=== PATIENT | female | born 1945 | race Caucasian/White ===

== ENCOUNTER 2017-06-16 05:33 | Inpatient (IN) | payer MEDICARE, MEDICAID, SELFPAY ==
[2017-06-16] VITALS (32 sets, daily range): BP systolic 124–165; BP diastolic 47–106; PULSE 57–81; RESP 16–26; TEMP 35.4–37.1; O2SAT 92–100; BMI 43.7; BMI 40.8; BMI 40.9
--- NOTE | 2017-06-16 05:43 | EKG12_ITS ---
Test Reason : SOB Blood Pressure : / mmHG Vent. Rate : 062 BPM Atrial Rate : 062 BPM P-R Int : 306 ms QRS Dur : 098 ms QT Int : 406 ms P-R-T Axes : 085 053 -42 degrees QTc Int : 412 ms Sinus rhythm with 1st degree A-V block T wave abnormality, consider inferior ischemia Abnormal ECG Confirmed by SOUTH PENDLETON ([id number]), staff editor WILLIAM LUNSFORD ([id number]) on 06/21/2017 2:09:02 PM Referred By: RICHIE Confirmed By:SOUTH PENDLETON
--- NOTE | 2017-06-16 05:43 | RAD_ITS ---
STUDY: X-RAY CHEST REASON FOR EXAM: Female, 71 years old. Shortness of breath TECHNIQUE: Single AP portable view of the chest. COMPARISON: 07/15/2015 FINDINGS: There are superimposed monitor leads. One monitor lead is superimposed over the left thoracic sutures. There are areas of hyperinflation. There is increased interstitial prominence left greater than right. There is no demonstrated pleural abnormality. Sternal cerclage wires and vascular clips are present from a prior sternotomy and coronary artery bypass graft procedure (CABG). Normal mediastinum and sachin. Normal visualized pulmonary arteries. There is atherosclerotic calcification of the aortic arch with tortuosity. The spine and upper abdominal soft tissues are obscured. Normal visualized ribs, clavicles, and shoulders. RAD/Chest 1 View (Portable) IMPRESSION: Free soft interstitial prominence, slightly more left compared to right. Possible inflammatory process rather than asymmetric vascular congestion. Suspect underlying COPD component. Postsurgical changes as above. Electronically Signed: Suze Schuster MD at 6:48 EDT , Service support ,
--- NOTE | 2017-06-16 05:45 | ED.VISSUMM ---
- ER Visit Summary Date of Service: 06/16/17 Chief Complaint: Shortness of breath History of Present Illness: The patient is a 71 F presents for 3 weeks of intermittent shortness of breath. Patient and daughter provide history. Patient has been having 3 weeks of worsening shortness of breath, worse with mild exertion. Patient has associated cough productive of sputum. Chest pain with the cough. No fever, abdominal pain, nausea or vomiting. No urinary symptoms. Patient is on home oxygen at 2 L as needed. EMS gave patient oral glucose for a low blood sugar of [address] her on oxygen after finding her 91% on room air. History of COPD, CHF, DVTs, diabetes, hypertension, coronary artery disease status post myocardial infarction. Patient is on Coumadin. Physical Examination: Vital signs: afebrile, hemodynamically stable, no hypoxia on room air General: well nourished, well developed, in mild distress Skin: warm, dry, no rash, no pallor HEENT: normocephalic and atraumatic; PERRL, EOMI, moist mucous membranes Cardiovascular: regular rate and rhythm without murmurs, no peripheral edema, 2+ pulses all distal extremities Respiratory: Mild increased work of breathing, audible wheezing, wheezing noted in all peña, rales in bilateral bases, left lower field diminished Abdominal: Abdomen is soft, nontender with normoactive bowel sounds, no guarding or rebound, no masses MSK: Moves all extremities, no deformities, normal strength Neuro: Awake and alert, oriented ?4. No facial droop, sensation and motor function intact and symmetric Test Results: Abnormal Lab Results 06/16/17 06/16/17 06/16/17 05:40 07:04 07:04 WBC 6.3 RBC 4.67 Hgb 13.2 Hct 43.7 MCV 93.6 MCH 28.3 MCHC 30.2 L RDW 14.4 RDW Differential 48.5 H Plt Count 101 L MPV 9.8 Immature Gran % (Auto) 0.200 Neut % (Auto) 69.2 Lymph % (Auto) 17.4 L [place] % (Auto) 12.8 H Eos % (Auto) 0.2 Baso % (Auto) 0.2 Absolute Neuts (auto) 4.3 Absolute Lymphs (auto) 1.09 Total Counted Not Reportable PT INR APTT Sodium 137 Potassium 4.4 Chloride 102 Carbon Dioxide 32.0 Anion Gap 3 L BUN 31 H Creatinine 0.76 Estim Creat Clear Calc 47.10 Est GFR (MDRD) Af Amer 96 Est GFR (MDRD) Non-Af 80 BUN/Creatinine Ratio 40.7 H Glucose 76 Lactic Acid Calcium 8.5 Total Bilirubin 0.40 AST 23 ALT 22 Alkaline Phosphatase 123 H Troponin I 1.21 H* Total Protein 7.5 Albumin 2.7 L Globulin 4.8 H Albumin/Globulin Ratio 0.6 L POC Glucose 79 06/16/17 06/16/17 06/16/17 07:04 07:04 07:11 WBC RBC Hgb Hct MCV MCH MCHC RDW RDW Differential Plt Count MPV Immature Gran % (Auto) Neut % (Auto) Lymph % (Auto) [place] % (Auto) Eos % (Auto) Baso % (Auto) Absolute Neuts (auto) Absolute Lymphs (auto) Total Counted PT 31.8 H INR 3.1 APTT 43.9 H Sodium Potassium Chloride Carbon Dioxide Anion Gap BUN Creatinine Estim Creat Clear Calc Est GFR (MDRD) Af Amer Est GFR (MDRD) Non-Af BUN/Creatinine Ratio Glucose Lactic Acid 1.2 Calcium Total Bilirubin AST ALT Alkaline Phosphatase Troponin I Total Protein Albumin Globulin Albumin/Globulin Ratio POC Glucose 85 Emergency Department Course and Treatment: Patient presents with shortness of breath, wheezing and mild crackles in the bases, with concern for COPD versus CHF exacerbation versus pneumonia. She was given a DuoNeb treatment with some improvement in her wheezing. Workup performed that showed positive for influenza A, chest x-ray showing no obvious infiltrates or pulmonary edema, EKG showing ST elevation in 1 and aVL less than 1 mm with T-wave inversions in the inferior leads. EKG repeated after 30 minutes and still had these changes. Patient's EKG was discussed with Dr. Wang, who agreed the changes were concerning for ischemia and requested that patient be loaded on Plavix and placed in the ICU of her troponin was elevated. Troponin came back at 1.2. Patient's INR was 3, thus she was not given any heparin per Dr. Wang's recommendation. Echo was ordered and performed in the emergency department. Patient will be admitted to the ICU for shortness of breath, respiratory distress secondary to influenza and acute coronary syndrome, secondary to respiratory infection versus a primary ACS. Was discussed with Dr. Jesus and admitted to the ICU for further management. Dr. Galeano was notified of patient's ICU admission. Treatment Plan: [] Disposition: [] Impression: Influenza A, acute coronary syndrome, acute dyspnea This note was generated with Memento dictation software. It may contain incorrect words, spelling, and punctuation that were not noted in review of the chart prior to signing ED Disposition - Plan for ED Patient: Chief Complaint: Shortness of Breath Referrals: Carli Carballo MD [Primary Care Provider] -
[2017-06-16 05:46] LABS: Bedside Glucose 79 mg/dL (70-110)
[2017-06-16] MEDS: 0.9% Normal Saline 1,000 ML 150 ML IV (06:05)
[2017-06-16] MEDS: Ipratropium/Albuterol Sulfate 3 ML AMPUL.NEB INHALATION ×3 (06:10→18:36)
--- NOTE | 2017-06-16 06:36 | EKG12_ITS ---
Test Reason : SOB Blood Pressure : / mmHG Vent. Rate : 060 BPM Atrial Rate : 060 BPM P-R Int : 254 ms QRS Dur : 092 ms QT Int : 442 ms P-R-T Axes : 068 051 -37 degrees QTc Int : 442 ms Sinus rhythm with 1st degree A-V block T wave abnormality, consider inferior ischemia Abnormal ECG Confirmed by SOUTH PENDLETON ([id number]), manager editorial WILLIAM LUNSFORD ([id number]) on 06/21/2017 2:09:17 PM Referred By: RICHIE Confirmed By:SOUTH PENDLETON
--- NOTE | 2017-06-16 06:37 | ED.RN ---
lab called with critical lab results. flu positive flu A. Dr. Veloz made aware. No new orders at this time
[2017-06-16 07:12] LABS: Absolute Lymphocyte Count 1.09 X10^3/ul (0.83-4.51); Absolute Neutrophil Count 4.3 X10^3/uL (2.0-7.7); Basophil# 0.01 X10^3/uL; Basophil% 0.2 % (0-1); Eosinophil# 0.01 X10^3/uL; Eosinophils% 0.2 % (0-5); Hematocrit 43.7 % (37-47); Hemoglobin 13.2 g/dl (12.0-15.0); Lymphocyte # 1.09 X10^3/ul (4.0); Lymphocyte % 17.4 % (19-41); Mean Corp Hgb Conc 30.2 g/gl (32-36); Mean Corpuscular Hgb 28.3 pg (27.0-32.0); Mean Corpuscular Volume 93.6 fL (81-99); Mean Platelet Vol. 9.8 fl (6.2-12.0); Monocyte% 12.8 % (0-10); Neutrophil # 4.33 X10^3/uL (2.7-7.7); Neutrophil % 69.2 % (47-70); Platelet Count 101 K/mm3 (150-450); RBC Distribution Width CV 14.4 % (11.6-14.6); RBC Distribution Width SD 48.5 fl (35.1-43.9); Red Blood Count 4.67 M/mm3 (4.2-5.4); White Blood Count 6.3 K/mm3 (4.4-11.0)
[2017-06-16 07:13] LABS: POSITIVE COUNT NO; POSITIVE DIFFERENTIAL NO; POSITIVE MORPHOLOGY NO
[2017-06-16 07:15] LABS: Bedside Glucose 85 mg/dL (70-110)
[2017-06-16] MEDS: MethylPREDNISolone 125 MG/2 ML Vial IV (07:19)
[2017-06-16] MEDS: Albuterol 2.5 MG/3 ML VIAL.NEB. INHALATION ×2 (07:21)
--- NOTE | 2017-06-16 07:30 | ECHOD_ITS ---
Reason For Study: ABN EKG Procedure This was a 2D Doppler, Color Flow transthoracic echocardiogram. The study was technically difficult. Due to body habitus. Contrast injection was performed. Exam performed portable in ED. Left Ventricle Mild concentric left ventricular hypertrophy. The estimated ejection fraction is 55 %. There are regional wall motion abnormalities as specified. Mid-Anterior : Mildly hypokinetic. Right Ventricle Moderately dilated right ventricle. Mild to moderate global right ventricular systolic dysfunction. Atria The left atrium is severely enlarged. The right atrium is mildly enlarged. Normal atrial septum. Mitral Valve Mild diffuse mitral valve thickening. Mild mitral valve stenosis. Mild (1+) mitral valve insufficiency. Tricuspid Valve Normal tricuspid valve. Trivial tricuspid valve insufficiency. Right ventricular systolic pressure estimated to be 22 mmHg. Aortic Valve Trisinus/trileaflet aortic valve. Moderate focal aortic valve thickening. There is no aortic stenosis. Pulmonic Valve Normal pulmonic valve. Trivial pulmonic valve insufficiency. Great Vessels Normal aortic root. Normal arch. Normal inferior vena cava. Inferior vena cava collapse with sniff. Pericardium/Pleural No pericardial effusion. Medication Diluted definity 3.0ml given slow IV push to enhance endocardial definition. MMode/2D Measurements & Calculations LVIDd: 5.6 cm IVSd: 1.4 cm Ao root diam: 3.1 cm LVIDs: 3.5 cm LVPWd: 1.3 cm LA dimension: 3.7 cm FS: 37.5 % LAV(MOD-bp): 75.3 ml LA A4 area: 26.0 cm2 RA A4 area: 20.6 cm2 LAV(MOD-bp) Indexed: 33.6 ml/m2 LAV(MOD-sp2): 63.8 ml LAV(MOD-sp4): 86.8 ml Doppler Measurements & Calculations MV E max asaf: 126.2 cm/sec Lat Peak E' Asaf: 11.3 cm/sec Med Peak E' Asaf: 5.0 cm/sec MV A max asaf: 58.4 cm/sec E/E' lat: 11.2 E/E' med: 25.3 MV E/A: 2.2 MV V2 max: 140.8 cm/sec Ao V2 max: 140.9 cm/sec LV V1 max: 61.8 cm/sec MV max P.9 mmHg Ao max P.9 mmHg LV V1 max P.5 mmHg MV V2 mean: 62.2 cm/sec MV mean P.0 mmHg MV V2 VTI: 37.4 cm PA V2 max: 94.2 cm/sec PI dec slope: 123.1 cm/sec2 TR max asaf: 209.6 cm/sec TR max P.6 mmHg Interpretation Summary Mild concentric left ventricular hypertrophy. The estimated ejection fraction is 55 %. Mid-Anterior : Mildly hypokinetic Moderately dilated right ventricle. Mild to moderate global right ventricular systolic dysfunction. The left atrium is severely enlarged. Mild mitral valve stenosis. Mild (1+) mitral valve insufficiency. Right ventricular systolic pressure estimated to be 22 mmHg. The study was technically difficult. Contrast injection was performed. Ordering Physician: Britta Veloz Referring Physician: Carli Carballo Performed By: Violeta Topete RDCS, RVT
[2017-06-16 07:31] LABS: International Normalized Ratio 3.1; Prothrombin Time (Protime)PT. 31.8 SECONDS (11.7-14.9)
[2017-06-16 07:32] LABS: Partial Thromboplast Time 43.9 Seconds (24.1-36.2)
[2017-06-16] MEDS: Clopidogrel Bisulfate 300 MG Tablet PO (08:00)
[2017-06-16 08:03] LABS: ALB/GLOB Ratio 0.6 RATIO (0.9-2.4); AST(SGOT) 23 U/L (15-37); Alanine Aminotransfer ALT/SGPT 22 U/L (13-56); Albumin, Serum 2.7 g/dL (3.2-5.0); Alkaline Phosphatase 123 U/L (45-117); Anion Gap 3 (5-15); BUN 31 mg/dL (7-18); BUN/Creat Ratio 40.7 RATIO (10-20); Calcium,Total 8.5 mg/dL (8.5-10.1); Chloride 102 mmol/L (98-107); Creatinine, Serum 0.76 mg/dL (0.55-1.02); EST Glomerular Filtration Rate 80 mL/min (>60); Est Glom Filt Rate - Afr Amer 96 mL/min (>60); Globulin 4.8 g/dL (2.2-4.2); Glucose 76 mg/dL (74-106); Lactic Acid 1.2 mmol/L (0.4-2.0); Potassium 4.4 mmol/L (3.5-5.1); Protein, Total 7.5 g/dL (6.4-8.2); Sodium Level 137 mmol/L (136-145)
--- NOTE | 2017-06-16 08:26 | NURSING ---
DR LEONARDO FOR DR QUIROZ
--- NOTE | 2017-06-16 08:43 | NURSING ---
ICU ACS, INFLUENZA A SEMENTI
--- NOTE | 2017-06-16 08:43 | NURSING ---
DR PENDLETON IN WITH PATIENT
--- NOTE | 2017-06-16 08:49 | NURSING ---
ICU 4
--- NOTE | 2017-06-16 08:50 | NURSING ---
DR LEONARDO IN WITH PATIENT
--- NOTE | 2017-06-16 08:58 | NURSING ---
Called Hoda in ED, asked to have Gabbi send up pt from ER
[2017-06-16 09:20] LABS: BNP,B-Type NATRIURETIC PEPTIDE 226.5 pg/mL (0-100)
--- NOTE | 2017-06-16 09:24 | PCM.HP.STD ---
Problem List (1) NSTEMI (non-ST elevated myocardial infarction) Status: Acute (2) Influenza Status: Acute Comment: Influenza A (3) COPD with acute exacerbation Status: Acute (4) COPD (chronic obstructive pulmonary disease) Status: Chronic (5) KARRIE (obstructive sleep apnea) Status: Suspected (6) Nocturnal hypoxemia Status: Chronic (7) Anemia Status: Resolved (8) Constipation due to pain medication Status: Chronic (9) Physical debility Status: Chronic (10) Anticoagulation goal of INR 2 to 3 Status: Chronic (11) CAD (coronary artery disease) Status: Chronic Comment: CABG Dec 2012 (12) Diabetes mellitus Status: Chronic Qualifiers: Diabetes mellitus type: type 2 Comment: diabetic foot ulcerations (13) History of DVT (deep vein thrombosis) Status: Chronic Comment: on coumadin lifelong (14) Lung nodules Status: Chronic (15) Morbid obesity Status: Chronic Comment: BMI 49 (16) Presence of IVC filter Status: Chronic (17) Status post PIOTR-BSO Status: Chronic Comment: she thinks she may have had uterine CA History of Present Illness Date of Admission: 06/16/17 Chief Complaint: Shortness of breath The patient is a 71 year old F with a past medical history of hypertension, diabetes mellitus type 2, morbid obesity, COPD, coronary artery disease with history of coronary artery bypass grafting in 2011, hyperlipidemia, deep vein thrombosis/PE, chronic anticoagulation with Coumadin, possible Endometrial CA(had PIOTR/BSO and thinks she had uterine CA), S/P IVC filter and GERD who presented to the ER at [facility] on 06/16/17 c/o cough and SOB for 3 weeks. She denies fever, chills, nausea, vomiting, chest pressure, palpitations, lightheadedness. She tells me that she has never had a sleep study but, she does wear 2 LPM of O2 at night. She had CPAP or BIPAP during her admission to [facility] for CABG and states she would never wear that mask again. Vital signs at presentation to the emergency room are temperature 95.7, pulse rate 63, blood pressure 139/61, respiratory rate 16 and she was 99% saturated on a 2 L nasal cannula. She was placed on oxygen by the milk handler for a pulse ox on room air of 91%. White blood cell count is normal at 6.3 and there are 69% neutrophils. Hemoglobin is 13.2 and the platelet count is low at 101,000(a new finding). INR is therapeutic at 3.1. Electrolytes are within normal limits and the BUN is 31 with a creatinine of 0.76. Troponin is elevated at 1.21 and the BNP is 226. Chest x-ray shows increased interstitial markings on the left side greater than the right side. No pleural effusions. EKG was abnormal and she was seen in the ED by Dr. Wang. He recommended admission to the ICU and monitoring her closely for any decline while allowing the INR to drift down. She was given a loading dose of Plavix and ECHO was done but there is no report yet. Planning on Cath possibly Wednesday. She normally sees Dr. Orantes. She was given Solumedrol, Plavix, duoneb aerosol and Perfluten Lipid Microsphere in the ER and has now developed a Pruritic maculopapular rash. Has had Plavix in past with no reaction.......? which drug is causing the reaction. ] Past Medical History Past Medical History (Chronic Problems): Chronic Problems COPD (chronic obstructive pulmonary disease) (Chronic) Nocturnal hypoxemia (Chronic) Presence of IVC filter (Chronic) Status post PIOTR-BSO (Chronic) she thinks she may have had uterine CA Morbid obesity (Chronic) BMI 49 Lung nodules (Chronic) History of DVT (deep vein thrombosis) (Chronic) on coumadin lifelong Diabetes mellitus (Chronic) diabetic foot ulcerations CAD (coronary artery disease) (Chronic) CABG Dec 2012 Anticoagulation goal of INR 2 to 3 (Chronic) Physical debility (Chronic) Constipation due to pain medication (Chronic) Allergies vancomycin Allergy (Verified 06/16/17 05:34) Shortness of breath Stldeob-Mfk-Zzk Reductase Inhibitor Adverse Reaction (Verified 06/16/17 05:34) Other MUSCLE ACHES Home Medications: Ambulatory Orders Medication Instructions Recorded Aspirin [Adult Low Dose Aspirin EC] 81 mg PO DAILY 06/16/17 Carvedilol [Coreg] 3.125 mg PO BID 06/16/17 Cholecalciferol (Vitamin D3) 50,000 unit PO QWEEK 06/16/17 [Optimal D3] Codeine Phosphate/Guaifenesin 5 ml PO PRN PRN 06/16/17 [Guaifen-Codeine 100-10 mg/5 ml] Doxycycline 100 mg PO BID 06/16/17 Furosemide [Lasix] 20 mg PO DAILY 06/16/17 Insulin Aspart [Novolog] 13 unit SQ TID 06/16/17 Insulin Glargine [Lantus (BKC)] 48 units SC QHS 06/16/17 Lidocaine [Aspercreme] 1 each TP DAILY 06/16/17 Losartan Potassium 25 mg PO DAILY 06/16/17 Nitroglycerin [Nitrostat] 0.4 mg SUBLINGUAL Q5M PRN 06/16/17 Potassium Chloride [K-Dur] 20 meq PO DAILY 06/16/17 Rosuvastatin Calcium [Crestor] 20 mg PO QHS 06/16/17 TraMADol [Ultram (G)] 50 mg PO BID PRN 06/16/17 Warfarin [Coumadin (PBKC)] 1 mg PO QWEEK 06/16/17 Warfarin [Coumadin (PBKC)] 2 mg PO QWEEK 06/16/17 Surgical History: cataract, cholecystectomy, coronary bypass surgery, hysterectomy - Possibly for endometrial cancer-patient is a poor historian and cannot really remember, tonsillectomy, - - Transmetatarsal amputation of the left foot for infection Psychiatric History: No pertinent psych hx 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 Lives: With Family Smoking Status: Never smoker Tobacco Use: Non-smoker Alcohol: None Drugs: None - *Family History Maternal History Items: No pertinent history Paternal History Items: No pertinent history Review of Systems Constitutional: Reports: Malaise. Denies: Anorexia, Chills, Fever Eyes: Denies: Blurred vision HEENT: Denies: Difficulty Swallowing, Head Aches, Sinus Congestion, Sinus Drainage, Sore Throat Cardiovascular: Reports: Edema - chronic. Denies: Chest Pain, Light Headedness, Palpitations, Syncope Respiratory: Reports: Cough, Shortness of Breath, Shortness of breath upon exertion, Wheezing. Denies: Sputum production Gastrointestinal: Denies: Abdominal Pain, Diarrhea, Nausea, Vomiting Genitourinary: Denies: Dysuria, Frequency, Hesitancy Gynecological: Denies: Breast symptoms, Vaginal discharge Musculoskeletal: Denies: Arm Pain, Joint Pain, Joint Tenderness, Neck Pain, Shoulder Pain Skin: Reports: Rash - the rash is new since she came to the ED. Denies: Jaundice Neurological: Reports: Numbness, Tingling - feet, chronic. Denies: Focal weakness Psychiatric: Denies: Homicidal Ideations, Suicidal Ideations Endocrine: Denies: Change in Body Habitus Hematologic/ Lymphatic: Reports: Hx of blood clot - on coumadin and has an IVC filter VTE Information - Inpt Only VTE Present on Admission: No VTE Mechan Device Prophylaxis: None VTE Pharm Prophylaxis ordered?: No Reason prophylaxis not ordered:: Treatment Not Indicated - she is therapeutic on coumadin Patient Problems: Active and Suspected Problems NSTEMI (non-ST elevated myocardial infarction) (Acute) Influenza (Acute) Influenza A COPD with acute exacerbation (Acute) KARRIE (obstructive sleep apnea) (Suspected) - Physical Exam General: Alert, Oriented x3, Cooperative, No apparent distress, - - She is a very poor historian HEENT: Atraumatic, PERRLA, EOMI, Normocephalic Oral: Moist Mucosa Neck: Supple, Negative Carotid Bruits, Trachea Midline Lungs: No rales, Diminished, Wheezes - diffuse Cardiovascular: Regular rate, Regular Rhythm, Normal S1, Normal S2, No murmurs, No Gallop, - - distant heart sounds due to body habitus Abdomen: Bowel Sounds Present, Soft, Non Tender, Non-Distended, Obese Extremities: No clubbing, No cyanosis, Edema Skin: - - she has stasis hyperpigmentation of both LE's. No openings in the skin. She has a red, pruritic maculopapular rash that was not present at admission. Musculoskeletal: No Muscle Wasting Neurological: Cranial nerves II-XII grossly intact, Neuro grossly intact Psych/Mental Status: Appropriate, Anxious Vital Signs Temp Pulse Resp BP Pulse Ox 95.7 F L 61 20 H 134/52 H 96 06/16/17 05:35 06/16/17 08:00 06/16/17 08:00 06/16/17 08:00 06/16/17 08:00 Assessment/Plan Active and Suspected Problems NSTEMI (non-ST elevated myocardial infarction) (Acute) Influenza (Acute) Influenza A COPD with acute exacerbation (Acute) KARRIE (obstructive sleep apnea) (Suspected) Impressions 1. non-STEMI 2. influenza A 3. Acute exacerbation COPD 4. Drug reaction with Allergic dermatitis 5. CAD 6. CABG in 2011 7. DM II 8. HTN 9. HLD 10. Morbid obesity 11. suspected sleep apnea - wear O2 at 2 LPM at night only 12. Chronic anticoagulation with warfarin 13. 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 Status post PIOTR/BSO-possible endometrial cancer, patient not sure 16. Suspected sleep apnea Admit to ICU consult Dr. Wang and Dr. Galeano to participate in management Start Solu-Medrol 40 mg IV every 8 hours. DuoNeb aerosols every 6 hours. Mucinex 1200 mg p.o. twice daily incentive spirometry and Acapella therapy. Start Tamiflu 75 mg p.o. twice daily ?10 doses Keep oxygen saturation greater than 90% Continue Plavix 75 mg p.o. daily Continue the home medications serial CE's Plan Cath when the INR drifts down - no plans for reversal of anticoagulation unless her condition deteriorates Start Lovenox 40 mg daily when the INR is less than 2.0...she has an IVC filter Benadryl PRN for pruritis Recommended to her that she follow up with Dr. Galeano post DC for PFT's and sleep study Code Visit Inpatient E&M: 26318 Init Hosp L3
--- NOTE | 2017-06-16 09:42 | HP.PCM_ITS ---
Problem List (1) NSTEMI (non-ST elevated myocardial infarction) Status: Acute (2) Influenza Status: Acute Comment: Influenza A (3) COPD with acute exacerbation Status: Acute (4) COPD (chronic obstructive pulmonary disease) Status: Chronic (5) KARRIE (obstructive sleep apnea) Status: Suspected (6) Nocturnal hypoxemia Status: Chronic (7) Anemia Status: Resolved (8) Constipation due to pain medication Status: Chronic (9) Physical debility Status: Chronic (10) Anticoagulation goal of INR 2 to 3 Status: Chronic (11) CAD (coronary artery disease) Status: Chronic Comment: CABG Dec 2012 (12) Diabetes mellitus Status: Chronic Qualifiers: Diabetes mellitus type: type 2 Comment: diabetic foot ulcerations (13) History of DVT (deep vein thrombosis) Status: Chronic Comment: on coumadin lifelong (14) Lung nodules Status: Chronic (15) Morbid obesity Status: Chronic Comment: BMI 49 (16) Presence of IVC filter Status: Chronic (17) Status post PIOTR-BSO Status: Chronic Comment: she thinks she may have had uterine CA History of Present Illness Date of Admission: 06/16/17 Chief Complaint: Shortness of breath The patient is a 71 year old F with a past medical history of hypertension, diabetes mellitus type 2, morbid obesity, COPD, coronary artery disease with history of coronary artery bypass grafting in 2011, hyperlipidemia, deep vein thrombosis/PE, chronic anticoagulation with Coumadin, possible Endometrial CA( had PIOTR/BSO and thinks she had uterine CA), S/P IVC filter and GERD who presented to the ER at [facility] on 06/16/17 c/o cough and SOB for 3 weeks. She denies fever, chills, nausea, vomiting, chest pressure, palpitations, lightheadedness. She tells me that she has never had a sleep study but, she does wear 2 LPM of O2 at night. She had CPAP or BIPAP during her admission to [facility] for CABG and states she would never wear that mask again. Vital signs at presentation to the emergency room are temperature 95.7, pulse rate 63, blood pressure 139/61, respiratory rate 16 and she was 99% saturated on a 2 L nasal cannula. She was placed on oxygen by the clinical research monitor for a pulse ox on room air of 91% . White blood cell count is normal at 6.3 and there are 69% neutrophils. Hemoglobin is 13.2 and the platelet count is low at 101,000(a new finding). INR is therapeutic at 3.1. Electrolytes are within normal limits and the BUN is 31 with a creatinine of 0.76. Troponin is elevated at 1.21 and the BNP is 226. Chest x-ray shows increased interstitial markings on the left side greater than the right side. No pleural effusions. EKG was abnormal and she was seen in the ED by Dr. Wang. He recommended admission to the ICU and monitoring her closely for any decline while allowing the INR to drift down. She was given a loading dose of Plavix and ECHO was done but there is no report yet. Planning on Cath possibly Wednesday. She normally sees Dr. Orantes. She was given Solumedrol, Plavix, duoneb aerosol and Perfluten Lipid Microsphere in the ER and has now developed a Pruritic maculopapular rash. Has had Plavix in past with no reaction.......? which drug is causing the reaction. ] Past Medical History Past Medical History (Chronic Problems): Chronic Problems COPD (chronic obstructive pulmonary disease) (Chronic) Nocturnal hypoxemia (Chronic) Presence of IVC filter (Chronic) Status post PIOTR-BSO (Chronic) she thinks she may have had uterine CA Morbid obesity (Chronic) BMI 49 Lung nodules (Chronic) History of DVT (deep vein thrombosis) (Chronic) on coumadin lifelong Diabetes mellitus (Chronic) diabetic foot ulcerations CAD (coronary artery disease) (Chronic) CABG Dec 2012 Anticoagulation goal of INR 2 to 3 (Chronic) Physical debility (Chronic) Constipation due to pain medication (Chronic) Allergies vancomycin Allergy (Verified 06/16/17 05:34) Shortness of breath Fionrly-Rrm-Orc Reductase Inhibitor Adverse Reaction (Verified 06/16/17 05:34) Other MUSCLE ACHES Home Medications: Ambulatory Orders Medication Instructions Recorded Aspirin [Adult Low Dose Aspirin EC] 81 mg PO DAILY 06/16/17 Carvedilol [Coreg] 3.125 mg PO BID 06/16/17 Cholecalciferol (Vitamin D3) 50,000 unit PO QWEEK 06/16/17 [Optimal D3] Codeine Phosphate/Guaifenesin 5 ml PO PRN PRN 06/16/17 [Guaifen-Codeine 100-10 mg/5 ml] Doxycycline 100 mg PO BID 06/16/17 Furosemide [Lasix] 20 mg PO DAILY 06/16/17 Insulin Aspart [Novolog] 13 unit SQ TID 06/16/17 Insulin Glargine [Lantus (BKC)] 48 units SC QHS 06/16/17 Lidocaine [Aspercreme] 1 each TP DAILY 06/16/17 Losartan Potassium 25 mg PO DAILY 06/16/17 Nitroglycerin [Nitrostat] 0.4 mg SUBLINGUAL Q5M PRN 06/16/17 Potassium Chloride [K-Dur] 20 meq PO DAILY 06/16/17 Rosuvastatin Calcium [Crestor] 20 mg PO QHS 06/16/17 TraMADol [Ultram (G)] 50 mg PO BID PRN 06/16/17 Warfarin [Coumadin (PBKC)] 1 mg PO QWEEK 06/16/17 Warfarin [Coumadin (PBKC)] 2 mg PO QWEEK 06/16/17 Surgical History: cataract, cholecystectomy, coronary bypass surgery, hysterectomy - Possibly for endometrial cancer-patient is a poor historian and cannot really remember, tonsillectomy, - - Transmetatarsal amputation of the left foot for infection Psychiatric History: 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 Lives: With Family Smoking Status: Never smoker Tobacco Use: Non-smoker Alcohol: None Drugs: None - *Family History Maternal History Items: No pertinent history Paternal History Items: No pertinent history Review of Systems Constitutional: Reports: Malaise. Denies: Anorexia, Chills, Fever Eyes: Denies: Blurred vision HEENT: Denies: Difficulty Swallowing, Head Aches, Sinus Congestion, Sinus Drainage, Sore Throat Cardiovascular: Reports: Edema - chronic. Denies: Chest Pain, Light Headedness , Palpitations, Syncope Respiratory: Reports: Cough, Shortness of Breath, Shortness of breath upon exertion, Wheezing. Denies: Sputum production Gastrointestinal: Denies: Abdominal Pain, Diarrhea, Nausea, Vomiting Genitourinary: Denies: Dysuria, Frequency, Hesitancy Gynecological: Denies: Breast symptoms, Vaginal discharge Musculoskeletal: Denies: Arm Pain, Joint Pain, Joint Tenderness, Neck Pain, Shoulder Pain Skin: Reports: Rash - the rash is new since she came to the ED. Denies: Jaundice Neurological: Reports: Numbness, Tingling - feet, chronic. Denies: Focal weakness Psychiatric: Denies: Homicidal Ideations, Suicidal Ideations Endocrine: Denies: Change in Body Habitus Hematologic/ Lymphatic: Reports: Hx of blood clot - on coumadin and has an IVC filter VTE Information - Inpt Only VTE Present on Admission: No VTE Mechan Device Prophylaxis: None VTE Pharm Prophylaxis ordered?: No Reason prophylaxis not ordered:: Treatment Not Indicated - she is therapeutic on coumadin Patient Problems: Active and Suspected Problems NSTEMI (non-ST elevated myocardial infarction) (Acute) Influenza (Acute) Influenza A COPD with acute exacerbation (Acute) KARRIE (obstructive sleep apnea) (Suspected) - Physical Exam General: Alert, Oriented x3, Cooperative, No apparent distress, - - She is a very poor historian HEENT: Atraumatic, PERRLA, EOMI, Normocephalic Oral: Moist Mucosa Neck: Supple, Negative Carotid Bruits, Trachea Midline Lungs: No rales, Diminished, Wheezes - diffuse Cardiovascular: Regular rate, Regular Rhythm, Normal S1, Normal S2, No murmurs, No Gallop, - - distant heart sounds due to body habitus Abdomen: Bowel Sounds Present, Soft, Non Tender, Non-Distended, Obese Extremities: No clubbing, No cyanosis, Edema Skin: - - she has stasis hyperpigmentation of both LE's. No openings in the skin. She has a red, pruritic maculopapular rash that was not present at admission. Musculoskeletal: No Muscle Wasting Neurological: Cranial nerves II-XII grossly intact, Neuro grossly intact Psych/Mental Status: Appropriate, Anxious Vital Signs Temp Pulse Resp BP Pulse Ox 95.7 F L 61 20 H 134/52 H 96 06/16/17 05:35 06/16/17 08:00 06/16/17 08:00 06/16/17 08:00 06/16/17 08:00 Assessment/Plan Active and Suspected Problems NSTEMI (non-ST elevated myocardial infarction) (Acute) Influenza (Acute) Influenza A COPD with acute exacerbation (Acute) KARRIE (obstructive sleep apnea) (Suspected) Impressions 1. non-STEMI 2. influenza A 3. Acute exacerbation COPD 4. Drug reaction with Allergic dermatitis 5. CAD 6. CABG in 2011 7. DM II 8. HTN 9. HLD 10. Morbid obesity 11. suspected sleep apnea - wear O2 at 2 LPM at night only 12. Chronic anticoagulation with warfarin 13. 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 Status post PIOTR/BSO-possible endometrial cancer, patient not sure 16. Suspected sleep apnea Admit to ICU consult Dr. Wang and Dr. Galeano to participate in management Start Solu-Medrol 40 mg IV every 8 hours. DuoNeb aerosols every 6 hours. Mucinex 1200 mg p.o. twice daily incentive spirometry and Acapella therapy. Start Tamiflu 75 mg p.o. twice daily ?10 doses Keep oxygen saturation greater than 90% Continue Plavix 75 mg p.o. daily Continue the home medications serial CE's Plan Cath when the INR drifts down - no plans for reversal of anticoagulation unless her condition deteriorates Start Lovenox 40 mg daily when the INR is less than 2.0...she has an IVC filter Benadryl PRN for pruritis Recommended to her that she follow up with Dr. Galeano post DC for PFT's and sleep study Code Visit Inpatient E&M: 13558 Init Hosp L3
[2017-06-16 10:07] LABS: Bacteria 0 SEEN /hpf (None Seen); Mucous, Urine 0 SEEN /hpf (<or=2+); Squamous Epithelial Cells - UA 0 SEEN /hpf (5-10); White Blood Cells 0 SEEN /hpf (0-5)
[2017-06-16 10:09] LABS: Color, Urine Yellow (Yellow); Glucose, Dipstick Normal (Normal); Ketone-Dipstick Negative (Negative); Leukocyte Esterase-Dipstick Negative /ul (Negative); Nitrite-Dipstick Negative (Negative); Occult Blood-Urine 10 /ul (Negative); Protein-Dipstick 30 mg/dl (Negative); Specific Gravity, Urine 1.015 (1.002-1.030); Urine Bilirubin Dipstick Negative (Negative); Urine Clarity Clear (Clear); Urine Urobilinogen Normal (Normal)
[2017-06-16 10:16] LABS: Red Blood Cells-Urine 0-5 SEEN /hpf (0-5)
[2017-06-16] MEDS: Nitroglycerin Oint 1 INCH PACKET TRANSDERM. ×2 (10:55→18:16)
[2017-06-16] MEDS: Furosemide 40 MG/4 ML Vial IV ×2 (10:55→18:17)
[2017-06-16 11:46] LABS: M R Staph aureus DNA By PCR Negative (Negative); Probe Check PASS; Specimen Processing Control PASS
--- NOTE | 2017-06-16 11:48 | NURSING ---
IVT at bedside for midline insertion
[2017-06-16 11:56] LABS: Bedside Glucose 85 mg/dL (70-110)
--- NOTE | 2017-06-16 12:17 | CON.PCM_ITS ---
Problem List (1) NSTEMI (non-ST elevated myocardial infarction) Status: Acute (2) History of DVT (deep vein thrombosis) Status: Chronic Comment: on coumadin lifelong (3) CAD (coronary artery disease) Status: Chronic Comment: CABG Dec 2012 Reason for Consult Date of Consultation: 06/16/17 Reason for Consultation: Shortness of breath, CHF, hypertension, COPD, coronary artery disease status post bypass surgery, non-STEMI, abnormal EKG. History of Present Illness: The patient is a 71 year old F, with a history of diabetes, hypertension, hypercholesterolemia, coronary artery disease, COPD on home oxygen, patient of Dr. Recio, with an associated history of coronary artery disease status post multivessel bypass surgery at [facility] by Dr. Garland in 2013. I do not have the old records in front of me to determine what areas were bypassed. At that time the patient apparently had a markedly abnormal stress test, and was shipped up to [facility] for bypass surgery. She has not had a previous heart attack or stenting prior to or subsequent to her bypass. She has not had a catheterization since that time. The patient has been feeling rundown with progressively worsening shortness of breath, fevers, chills, over the last 2-3 weeks. Patient has been compliant with her medications and her O2 at home. Patient presents with shortness of breath, mild respiratory distress, chest x-ray shows evidence of possible bilateral pulmonary edema. In addition EKG in the ER showed normal sinus rhythm with new subtle lateral ST segment elevation with associated inferior T- wave inversion was were not present in 2013. Patient denied any anginal symptoms but did complain of chest pain when she coughs. Patient has had a history of pruritus in the past. Patient is on chronic Coumadin therapy for chronic DVT and she is uncertain whether she had a pulmonary embolism but she thinks she may have in the past. Despite an INR 3.1, her initial troponin was 1.21. A bedside echo was performed in the emergency room which demonstrated mild kinesis, but no significant lateral hypokinesis at this time. Patient was treated with nebulizer therapy, IV Lasix, transdermal nitroglycerin, and IV steroids for her significant wheezing. Patient been feeling markedly better and is now currently residing in the ICU. She is currently in no acute distress and denies any chest pain, angina. Telemetry is negative. Repeat troponins are pending. In addition the patient has tested positive for the flu in the emergency room. [] Past Medical History Allergies/Adverse Reactions: Allergies vancomycin Allergy (Verified 06/16/17 05:34) Shortness of breath Zjzapmm-Rep-Lck Reductase Inhibitor Adverse Reaction (Verified 06/16/17 05:34) Other MUSCLE ACHES Home Medications: Ambulatory Orders Medication Instructions Recorded Aspirin [Adult Low Dose Aspirin EC] 81 mg PO DAILY 06/16/17 Carvedilol [Coreg] 3.125 mg PO BID 06/16/17 Cholecalciferol (Vitamin D3) 50,000 unit PO QWEEK 06/16/17 [Optimal D3] Codeine Phosphate/Guaifenesin 5 ml PO PRN PRN 06/16/17 [Guaifen-Codeine 100-10 mg/5 ml] Doxycycline 100 mg PO BID 06/16/17 Furosemide [Lasix] 20 mg PO DAILY 06/16/17 Insulin Aspart [Novolog] 13 unit SQ TID 06/16/17 Insulin Glargine [Lantus (BKC)] 48 units SC QHS 06/16/17 Lidocaine [Aspercreme] 1 each TP DAILY 06/16/17 Losartan Potassium 25 mg PO DAILY 06/16/17 Nitroglycerin [Nitrostat] 0.4 mg SUBLINGUAL Q5M PRN 06/16/17 Potassium Chloride [K-Dur] 20 meq PO DAILY 06/16/17 Rosuvastatin Calcium [Crestor] 20 mg PO QHS 06/16/17 TraMADol [Ultram (G)] 50 mg PO BID PRN 06/16/17 Warfarin [Coumadin (PBKC)] 1 mg PO QWEEK 06/16/17 Warfarin [Coumadin (PBKC)] 2 mg PO QWEEK 06/16/17 Past Medical History (Chronic Problems): Chronic Problems COPD (chronic obstructive pulmonary disease) (Chronic) Nocturnal hypoxemia (Chronic) Presence of IVC filter (Chronic) Status post PIOTR-BSO (Chronic) she thinks she may have had uterine CA Morbid obesity (Chronic) BMI 49 Lung nodules (Chronic) History of DVT (deep vein thrombosis) (Chronic) on coumadin lifelong Diabetes mellitus (Chronic) diabetic foot ulcerations CAD (coronary artery disease) (Chronic) CABG Dec 2012 Anticoagulation goal of INR 2 to 3 (Chronic) Physical debility (Chronic) Constipation due to pain medication (Chronic) Surgical History: cataract, cholecystectomy, coronary bypass surgery, hysterectomy - Possibly for endometrial cancer-patient is a poor historian and cannot really remember, tonsillectomy, - - Transmetatarsal amputation of the left foot for infection Psychiatric History: 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 - *Family History Maternal History Items: No pertinent history Paternal History Items: No pertinent history Lives: With Family Smoking Status: Never smoker Tobacco Use: Non-smoker Alcohol: None Drugs: None Subjectve: Patient laying in bed, no acute distress, heme and apically stable. Objective: Vital Signs Temp Pulse Resp BP Pulse Ox 96.5 F L 59 L 22 H 149/58 H 99 06/16/17 11:00 06/16/17 11:00 06/16/17 11:00 06/16/17 11:00 06/16/17 11:55 Oxygen Flow Rate (L/min) 2 Oxygen Delivery Method Nasal Cannula Weight: 253 lb 4.978 oz Body Mass Index (BMI) 40.8 General: Awake, Alert, Oriented x 3 HEENT: PERRL, EOMI, Sclera Non Icteric Neck: Supple, Good ROM, No Lymph Node Enlargement Lungs: Rales - Derian Bases, Inspiratory Wheezes - Derian Cardiovascular: Regular Rhythm, Normal S1, Normal S2, No Murmurs, No Rubs, No Gallops Vascular: No Carotid Bruits, Normal Femoral Pulses, Normal Radial Pulses, Normal Dorsalis Pedal Pulse, Normal Posterior Tibial Pulses Abdomen: Bowel Sounds Present, Soft, Non Tender, No HSM, No Organomegaly Extremities: No Cyanosis, No Clubbing, No edema Neurological: No Focal Motor or Sensory Deficit 06/16/17 10:00: Urine Color Yellow, Urine Clarity Clear, Urine pH 6.0, Ur Specific [place] 1.015, Urine Protein 30 H, Urine Glucose (UA) Normal, Urine Ketones Negative, Urine Occult Blood 10 H, Urine Nitrite Negative, Urine Bilirubin Negative, Urine Urobilinogen Normal, Ur Leukocyte Esterase Negative, Urine RBC 0-5 SEEN, Urine WBC 0 SEEN Rhythm: EKG: ECHO: LVEF around 50-55% with mild mid anterior hypokinesis, RVSP of 22 mmHg, Stress Test: Cardiac Cath: PCI: CT Surgery: Holter monitor: EPS: PPM: CXR: Chest CT Scan: Assessment/Plan 1. Coronary artery disease: Patient presents with respiratory distress, wheezing, evidence of CHF by physical exam and chest x-ray, in the face of a adequately anticoagulated INR 3.1 and troponin I of 1.21. In addition she has new dynamic lateral ST segment changes with inferior T-wave inversion. Echocardiogram shows mild mid anterior hypokinesis but no significant lateral hypokinesis although the images are challenging. At this point would recommend continuing baby aspirin, loading with Plavix 300 mg ?1 x 75 mg a day. Given the patient's presenting symptoms I am concerned that she may have coronary insufficiency or bypass graft malfunction to explain part of her symptoms. Although she did test positive for the flu and has been deteriorating for the past 3 weeks from a respiratory standpoint, her troponin may all be type II demand ischemia, but will not be known until she undergoes a left her catheterization with graft angiography. Recommend we obtain her old records from Dr. Hameed's office or from [facility] to determine where her bypass grafts are located. At this point I would recommend holding her Coumadin and starting her on either IV heparin or subcu Lovenox once her INR drops below 2.0. Given her DVTs and possible PE in the past she will require lifelong anticoagulation therapy. Once her INR is less than 1.5, would proceed with left heart catheterization with graft angiography. In addition I have given her Lasix 40 mill grams IV ?1 and would recommend repeating this 40 mill grams IV twice daily as long as her blood pressure is able to be supported. Recommend Nitropaste 1 inch every 6 hours for preload and afterload reduction. 2. Congestive heart failure: Recommend holding her Coreg for a day or so until she has reached her dry weight than reinstituting Coreg 3.125 mg p.o. daily. Recommend continuing losartan 25 mg's p.o. daily and titrating his up for afterload reduction and hypertension control. 3. Hyperlipidemia: Recommend obtaining a fasting lipid profile. Her LDL should be less than 70. 4. Thank you very much for the opportunity to participate in the cardiac care of your patient. Consultation time took place between 9 AM and 9:40 AM. Code Visit Inpatient E&M: 73075 Init Hosp L3
--- NOTE | 2017-06-16 12:24 | PCM.CON.CC ---
Reason for Consult Date of Consultation: 06/16/17 Reason for Consultation: ICU management/influenza A History of Present Illness: The patient is a 71-year-old female, with a history as outlined below, who presented to the emergency department on June 16 with complaints of a cough and shortness of breath of several weeks duration. The patient has a self-reported history of COPD of unknown severity along with coronary artery disease status post CABG and personal history of venous thromboembolic disease for which she is chronically anticoagulated on Coumadin. The patient does have nocturnal hypoxemia for which she wears 2 L per oxygen at night. However, she has never undergone a formal polysomnogram, she reports that she is not willing to utilize any form of nocturnal PAP therapy. On presentation to the emergency department, the patient was noted to be afebrile, hemodynamically stable and maintaining appropriate oxygen saturations on 2 L/min via nasal cannula. Laboratory evaluation revealed no evidence of a leukocytosis. The patient's INR was elevated to 3.1. Chemistry profile was largely unremarkable. Troponin was elevated to 1.21. BNP was mildly elevated at 226. Plain film chest x-ray revealed a mild degree of pulmonary vascular congestion. A surface echocardiogram was obtained which revealed mild concentric LVH with an ejection fraction of 55% and mild hypokinesis of the LV. The RV was noted to be moderately dilated with mild to moderate global RV systolic dysfunction. Right ventricular systolic pressure was estimated to be 22 mmHg. Rapid influenza screen was positive for the presence of influenza A. The patient was given an aerosol treatment, steroids and Lasix. She was subsequently transferred to the medical intensive care unit for treatment of her acute coronary syndrome with plans to proceed with left heart catheterization once the patient's INR became less than 1.5. Past Medical History Past Medical History (Chronic Problems): Chronic Problems COPD (chronic obstructive pulmonary disease) (Chronic) Nocturnal hypoxemia (Chronic) Presence of IVC filter (Chronic) Status post PIOTR-BSO (Chronic) she thinks she may have had uterine CA Morbid obesity (Chronic) BMI 49 Lung nodules (Chronic) History of DVT (deep vein thrombosis) (Chronic) on coumadin lifelong Diabetes mellitus (Chronic) diabetic foot ulcerations CAD (coronary artery disease) (Chronic) CABG Dec 2012 Anticoagulation goal of INR 2 to 3 (Chronic) Physical debility (Chronic) Constipation due to pain medication (Chronic) Allergies vancomycin Allergy (Verified 06/16/17 05:34) Shortness of breath Cjlvias-Xds-Uhd Reductase Inhibitor Adverse Reaction (Verified 06/16/17 05:34) Other MUSCLE ACHES Home Medications: Ambulatory Orders Medication Instructions Recorded Aspirin [Adult Low Dose Aspirin EC] 81 mg PO DAILY 06/16/17 Carvedilol [Coreg] 3.125 mg PO BID 06/16/17 Cholecalciferol (Vitamin D3) 50,000 unit PO QWEEK 06/16/17 [Optimal D3] Codeine Phosphate/Guaifenesin 5 ml PO PRN PRN 06/16/17 [Guaifen-Codeine 100-10 mg/5 ml] Doxycycline 100 mg PO BID 06/16/17 Furosemide [Lasix] 20 mg PO DAILY 06/16/17 Insulin Aspart [Novolog] 13 unit SQ TID 06/16/17 Insulin Glargine [Lantus (BKC)] 48 units SC QHS 06/16/17 Lidocaine [Aspercreme] 1 each TP DAILY 06/16/17 Losartan Potassium 25 mg PO DAILY 06/16/17 Nitroglycerin [Nitrostat] 0.4 mg SUBLINGUAL Q5M PRN 06/16/17 Potassium Chloride [K-Dur] 20 meq PO DAILY 06/16/17 Rosuvastatin Calcium [Crestor] 20 mg PO QHS 06/16/17 TraMADol [Ultram (G)] 50 mg PO BID PRN 06/16/17 Warfarin [Coumadin (PBKC)] 1 mg PO QWEEK 06/16/17 Warfarin [Coumadin (PBKC)] 2 mg PO QWEEK 06/16/17 Surgical History: cataract, cholecystectomy, coronary bypass surgery, hysterectomy - Possibly for endometrial cancer-patient is a poor historian and cannot really remember, tonsillectomy, - - Transmetatarsal amputation of the left foot for infection Psychiatric History: No pertinent psych hx [employer] History: endometrial cancer - maybe - she thinks she had Cancer but, not sure? Lives: With Family Smoking Status: Never smoker Tobacco Use: Non-smoker Alcohol: None Drugs: None - *Family History Maternal History Items: No pertinent history Paternal History Items: No pertinent history Review of Systems Constitutional: Reports: Malaise. Denies: Chills, Fever Eyes: Denies: Blurred vision, Double vision HEENT: Denies: Head Aches, Sinus Congestion, Sinus Drainage Cardiovascular: Reports: Edema Respiratory: Reports: Cough, Shortness of Breath, Sputum production Gastrointestinal: Denies: Abdominal Pain, Nausea, Vomiting Genitourinary: Denies: Dysuria Musculoskeletal: Denies: Joint Pain, Joint Tenderness Skin: Denies: Rash, Wounds Neurological: Reports: Numbness, Tingling Psychiatric: Denies: Anxiety, Depression, Homicidal Ideations, Suicidal Ideations Hematologic/ Lymphatic: Reports: Hx of blood clot Patient Problems: Active and Suspected Problems NSTEMI (non-ST elevated myocardial infarction) (Acute) Influenza (Acute) Influenza A COPD with acute exacerbation (Acute) KARRIE (obstructive sleep apnea) (Suspected) Objective: The patient's most recent lab work, culture data and imaging studies have all been personally reviewed. Rapid influenza screen was notably positive for influenza A. Blood and urine cultures are currently pending. - Physical Exam General: Alert, Oriented x3, Cooperative, No apparent distress, - - Morbidly obese. Resting comfortably in bed. HEENT: Atraumatic, PERRLA, Normocephalic Oral: Moist Mucosa, No Gingival or Mucosal Lesions/ Ulcerations Neck: Supple, No Nodes, Trachea Midline, - - Large neck circumference with redundant soft tissue. Lungs: No rhonchi, No rales, Diminished, Wheezes Cardiovascular: Regular rate, Regular Rhythm, Normal S1, Normal S2, No murmurs, No rub noted, No Gallop Abdomen: Bowel Sounds Present, Soft, Non Tender, Obese Extremities: No clubbing, No cyanosis, Edema Skin: No rashes, No breakdown Musculoskeletal: No Tenderness to Palpation of Joints or Extremities Lymphatic: No Cervical, Supraclavicular, or Inguinal Adenopathy Neurological: Neuro grossly intact Psych/Mental Status: Normal Affect, Appropriate Vital Signs Temp Pulse Resp BP Pulse Ox 96.5 F L 59 L 22 H 149/58 H 99 06/16/17 11:00 06/16/17 11:00 06/16/17 11:00 06/16/17 11:00 06/16/17 11:55 Oxygen Flow Rate (L/min) 2 Oxygen Delivery Method Nasal Cannula Weight: 253 lb 4.978 oz Body Mass Index (BMI) 40.8 Laboratory Tests Past 24 Hrs 06/16/17 06/16/17 09:50 10:00 Urine Color Yellow Urine Clarity Clear Urine pH 6.0 Ur Specific [place] 1.015 Urine Protein 30 H Urine Glucose (UA) Normal Urine Ketones Negative Urine Occult Blood 10 H Urine Nitrite Negative Urine Bilirubin Negative Urine Urobilinogen Normal Ur Leukocyte Esterase Negative Urine RBC 0-5 SEEN Urine WBC 0 SEEN Ur Squamous Epith Cells 0 SEEN Urine Bacteria 0 SEEN Urine Mucus 0 SEEN MRSA (PCR) Negative POC Glucose 06/16/17 11:51 POC Glucose 85 Labs (Last 48 Hours) 06/16/17 06/16/17 06/16/17 05:40 07:04 07:04 WBC 6.3 RBC 4.67 Hgb 13.2 Hct 43.7 MCV 93.6 MCH 28.3 MCHC 30.2 L RDW 14.4 RDW Differential 48.5 H Plt Count 101 L MPV 9.8 Immature Gran % (Auto) 0.200 Neut % (Auto) 69.2 Lymph % (Auto) 17.4 L [place] % (Auto) 12.8 H Eos % (Auto) 0.2 Baso % (Auto) 0.2 Absolute Neuts (auto) 4.3 Absolute Lymphs (auto) 1.09 Total Counted Not Reportable PT INR APTT Sodium 137 Potassium 4.4 Chloride 102 Carbon Dioxide 32.0 Anion Gap 3 L BUN 31 H Creatinine 0.76 Estim Creat Clear Calc 47.10 Est GFR (MDRD) Af Amer 96 Est GFR (MDRD) Non-Af 80 BUN/Creatinine Ratio 40.7 H Glucose 76 Lactic Acid Calcium 8.5 Magnesium Total Bilirubin 0.40 AST 23 ALT 22 Alkaline Phosphatase 123 H Troponin I 1.21 H* B-Natriuretic Peptide Total Protein 7.5 Albumin 2.7 L Globulin 4.8 H Albumin/Globulin Ratio 0.6 L Urine Color Urine Clarity Urine pH Ur Specific [place] Urine Protein Urine Glucose (UA) Urine Ketones Urine Occult Blood Urine Nitrite Urine Bilirubin Urine Urobilinogen Ur Leukocyte Esterase Urine RBC Urine WBC Ur Squamous Epith Cells Urine Bacteria Urine Mucus MRSA (PCR) POC Glucose 79 06/16/17 06/16/17 06/16/17 07:04 07:04 07:04 WBC RBC Hgb Hct MCV MCH MCHC RDW RDW Differential Plt Count MPV Immature Gran % (Auto) Neut % (Auto) Lymph % (Auto) [place] % (Auto) Eos % (Auto) Baso % (Auto) Absolute Neuts (auto) Absolute Lymphs (auto) Total Counted PT 31.8 H INR 3.1 APTT 43.9 H Sodium Potassium Chloride Carbon Dioxide Anion Gap BUN Creatinine Estim Creat Clear Calc Est GFR (MDRD) Af Amer Est GFR (MDRD) Non-Af BUN/Creatinine Ratio Glucose Lactic Acid 1.2 Calcium Magnesium Total Bilirubin AST ALT Alkaline Phosphatase Troponin I B-Natriuretic Peptide 226.5 H Total Protein Albumin Globulin Albumin/Globulin Ratio Urine Color Urine Clarity Urine pH Ur Specific [place] Urine Protein Urine Glucose (UA) Urine Ketones Urine Occult Blood Urine Nitrite Urine Bilirubin Urine Urobilinogen Ur Leukocyte Esterase Urine RBC Urine WBC Ur Squamous Epith Cells Urine Bacteria Urine Mucus MRSA (PCR) POC Glucose 06/16/17 06/16/17 06/16/17 07:04 07:11 09:50 WBC RBC Hgb Hct MCV MCH MCHC RDW RDW Differential Plt Count MPV Immature Gran % (Auto) Neut % (Auto) Lymph % (Auto) [place] % (Auto) Eos % (Auto) Baso % (Auto) Absolute Neuts (auto) Absolute Lymphs (auto) Total Counted PT INR APTT Sodium Potassium Chloride Carbon Dioxide Anion Gap BUN Creatinine Estim Creat Clear Calc Est GFR (MDRD) Af Amer Est GFR (MDRD) Non-Af BUN/Creatinine Ratio Glucose Lactic Acid Calcium Magnesium 2.0 Total Bilirubin AST ALT Alkaline Phosphatase Troponin I B-Natriuretic Peptide Total Protein Albumin Globulin Albumin/Globulin Ratio Urine Color Urine Clarity Urine pH Ur Specific [place] Urine Protein Urine Glucose (UA) Urine Ketones Urine Occult Blood Urine Nitrite Urine Bilirubin Urine Urobilinogen Ur Leukocyte Esterase Urine RBC Urine WBC Ur Squamous Epith Cells Urine Bacteria Urine Mucus MRSA (PCR) Negative POC Glucose 85 06/16/17 06/16/17 10:00 11:51 WBC RBC Hgb Hct MCV MCH MCHC RDW RDW Differential Plt Count MPV Immature Gran % (Auto) Neut % (Auto) Lymph % (Auto) [place] % (Auto) Eos % (Auto) Baso % (Auto) Absolute Neuts (auto) Absolute Lymphs (auto) Total Counted PT INR APTT Sodium Potassium Chloride Carbon Dioxide Anion Gap BUN Creatinine Estim Creat Clear Calc Est GFR (MDRD) Af Amer Est GFR (MDRD) Non-Af BUN/Creatinine Ratio Glucose Lactic Acid Calcium Magnesium Total Bilirubin AST ALT Alkaline Phosphatase Troponin I B-Natriuretic Peptide Total Protein Albumin Globulin Albumin/Globulin Ratio Urine Color Yellow Urine Clarity Clear Urine pH 6.0 Ur Specific [place] 1.015 Urine Protein 30 H Urine Glucose (UA) Normal Urine Ketones Negative Urine Occult Blood 10 H Urine Nitrite Negative Urine Bilirubin Negative Urine Urobilinogen Normal Ur Leukocyte Esterase Negative Urine RBC 0-5 SEEN Urine WBC 0 SEEN Ur Squamous Epith Cells 0 SEEN Urine Bacteria 0 SEEN Urine Mucus 0 SEEN MRSA (PCR) POC Glucose 85 Microbiology 06/16/17 06:05 Mucosa - Nose Influenza Types A,B Direct FA (CHRISTIN) - Final Influenzae A Clinical Impression(s) from Imaging Studies Chest X-Ray 06/16/17 05:43 IMPRESSION: Free soft interstitial prominence, slightly more left compared to right. Possible inflammatory process rather than asymmetric vascular congestion. Suspect underlying COPD component. Postsurgical changes as above. Electronically Signed: Suze Schuster MD at 6:48 EDT , Service support , Assessment/Plan Active and Suspected Problems NSTEMI (non-ST elevated myocardial infarction) (Acute) Influenza (Acute) Influenza A COPD with acute exacerbation (Acute) KARRIE (obstructive sleep apnea) (Suspected) RECOMMENDATIONS: 1. Continue scheduled aerosol treatments and steroids. 2. Send sputum for culture 3. Continue Tamiflu as ordered 4. Wean supplemental oxygen as tolerated 5. Encourage incentive spirometer use 6. Hold Coumadin for tentative cardiac catheterization once INR is less than 1.5. IMPRESSIONS: 1. Acute hypoxic respiratory insufficiency secondary to influenza A infection/Questionable COPD with exacerbation Continue aerosol treatments. Wean supplemental oxygen to maintain saturations at or above 90%. Continue IV steroids with plans to transition to prednisone beginning tomorrow. Continue Tamiflu as ordered. Send sputum for culture. Strongly recommend outpatient pulmonary follow-up to that baseline PFTs can be obtained. 2. Non-ST elevation myocardial infarction/history of coronary artery disease status post CABG Continue Plavix as ordered. Cardiology is following. Trend cardiac enzymes. Tentative plans for cardiac catheterization once the patient's INR falls below 1.5. 3. Personal history of VTE The patient is chronically anticoagulated on Coumadin. She also has an IVC filter in place. At the present time, the patient's Coumadin is on hold. Agree with initiation of Lovenox once the patient's INR is less than 2.0. 4. Morbid obesity/diabetes/hypertension/hyperlipidemia/sleep disordered breathing Complicates care, management, recovery and prognosis. Continue 2 L/min of supplemental oxygen nightly per home regimen. Ideally, the patient should undergo a polysomnogram for evaluation of obstructive sleep apnea. This note was generated with [employer] dictation software. It may contain incorrect words, spelling, and punctuation that were not noted in checking the note before signing. Code Visit Inpatient E&M: 71210 Init Hosp L3
[2017-06-16] MEDS: Aspirin E.C. 81 MG Tablet PO (13:34)
[2017-06-16] MEDS: Losartan Potassium 25 MG Tablet PO (13:34)
[2017-06-16] MEDS: Psyllium 1 PACKET PO (13:35)
[2017-06-16] MEDS: guaiFENesin 1,200 MG Tablet 1200 MG PO ×2 (13:35→21:23)
[2017-06-16] MEDS: Oseltamivir Phosphate 30 MG Capsule PO ×2 (13:36→21:23)
[2017-06-16 13:48] LABS: Cholesterol 74 mg/dL (200); High Density Lipoprotein 50 mg/dL; Triglycerides 46 mg/dL; Very Low Density Lipoprotein 9 mg/dL (5-40)
[2017-06-16 16:25] LABS: Bedside Glucose 236 mg/dL (70-110)
[2017-06-16] MEDS: 0.9% NaCl Peripheral Flush Adult/Peds IV (18:17)
[2017-06-16] MEDS: Atorvastatin Calcium 40 MG Tablet PO (21:23)
[2017-06-16 21:45] LABS: Bedside Glucose 263 mg/dL (70-110)
[2017-06-17] VITALS (33 sets, daily range): BP systolic 102–162; BP diastolic 49–80; PULSE 68–97; RESP 18–32; TEMP 36.3–37.3; O2SAT 88–97
[2017-06-17] MEDS: Ipratropium/Albuterol Sulfate 3 ML AMPUL.NEB INHALATION ×4 (01:08→18:39)
[2017-06-17 04:29] LABS: Absolute Lymphocyte Count 0.64 X10^3/ul (0.83-4.51); Absolute Neutrophil Count 1.7 X10^3/uL (2.0-7.7); Basophil# 0.01 X10^3/uL; Basophil% 0.4 % (0-1); Differential Indicated SCAN CRITERIA MET; Hematocrit 42.2 % (37-47); Hemoglobin 12.9 g/dl (12.0-15.0); Lymphocyte # 0.64 X10^3/ul (4.0); Mean Corp Hgb Conc 30.6 g/gl (32-36); Mean Corpuscular Hgb 27.7 pg (27.0-32.0); Mean Corpuscular Volume 90.6 fL (81-99); Mean Platelet Vol. 9.4 fl (6.2-12.0); Monocyte# 0.17 X10^3/uL; Monocyte% 6.6 % (0-10); Neutrophil # 1.74 X10^3/uL (2.7-7.7); POSITIVE COUNT NO; POSITIVE DIFFERENTIAL NO; POSITIVE MORPHOLOGY YES; Platelet Count 133 K/mm3 (150-450); RBC Distribution Width SD 46.1 fl (35.1-43.9); Red Blood Count 4.66 M/mm3 (4.2-5.4); White Blood Count 2.6 K/mm3 (4.4-11.0)
[2017-06-17 04:33] LABS: Prothrombin Time (Protime)PT. 31.7 SECONDS (11.7-14.9)
[2017-06-17 04:51] LABS: ALB/GLOB Ratio 0.5 RATIO (0.9-2.4); AST(SGOT) 16 U/L (15-37); Alanine Aminotransfer ALT/SGPT 18 U/L (13-56); Albumin, Serum 2.5 g/dL (3.2-5.0); Alkaline Phosphatase 117 U/L (45-117); Anion Gap 6 (5-15); BUN 38 mg/dL (7-18); BUN/Creat Ratio 34.5 RATIO (10-20); Calcium,Total 8.9 mg/dL (8.5-10.1); Chloride 95 mmol/L (98-107); Cholesterol 72 mg/dL (200); EST Glomerular Filtration Rate 52 mL/min (>60); Est Glom Filt Rate - Afr Amer 63 mL/min (>60); Estimated Creatinine Clearance 44.55 ml/min; Globulin 4.8 g/dL (2.2-4.2); Glucose 249 mg/dL (74-106); High Density Lipoprotein 49 mg/dL; Magnesium 1.8 mg/dL (1.6-2.6); Protein, Total 7.3 g/dL (6.4-8.2); Sodium Level 136 mmol/L (136-145); Triglycerides 58 mg/dL; Very Low Density Lipoprotein 12 mg/dL (5-40)
--- NOTE | 2017-06-17 05:55 | EKG12_ITS ---
Test Reason : AM Blood Pressure : / mmHG Vent. Rate : 067 BPM Atrial Rate : 080 BPM P-R Int : 000 ms QRS Dur : 094 ms QT Int : 440 ms P-R-T Axes : 082 025 -41 degrees QTc Int : 464 ms Sinus rhythm with 2nd degree A-V block (Mobitz I) T wave abnormality, consider inferior ischemia Abnormal ECG When compared with ECG of 16-JUN-2017 06:43, MANUAL COMPARISON REQUIRED, DATA IS UNCONFIRMED Confirmed by SOUTH PENDLETON ([id number]), photography editor WILLIAM LUNSFORD ([id number]) on 06/21/2017 2:34:35 PM Referred By: MALISSA Confirmed By:SOUTH PENDLETON
[2017-06-17] MEDS: Nitroglycerin Oint 1 INCH PACKET TRANSDERM. ×5 (06:45→23:47)
[2017-06-17] MEDS: 0.9% NaCl Peripheral Flush Adult/Peds IV ×3 (06:46→23:47)
--- NOTE | 2017-06-17 07:01 | PN_ITS ---
Subjective: The patient was seen and examined at the bedside this morning. Events from the last 24 hours have been reviewed. The patient is currently afebrile, hemodynamically stable and maintaining appropriate oxygen saturations on 2 L/ min via nasal cannula. Nursing staff did report periodic oxygen desaturations overnight. INR remains elevated at 3.0 this morning. Creatinine is worsened to 1.1 this morning. Troponins peaked at 1.21. Objective: The patient's most recent lab work, culture data and imaging studies have all been personally reviewed. Plain film chest x-ray revealed a mild degree of pulmonary vascular congestion. A surface echocardiogram was obtained which revealed mild concentric LVH with an ejection fraction of 55% and mild hypokinesis of the LV. The RV was noted to be moderately dilated with mild to moderate global RV systolic dysfunction. Right ventricular systolic pressure was estimated to be 22 mmHg. Rapid influenza screen was positive for the presence of influenza A. Blood and urine cultures are also pending. General: Alert, Cooperative, No apparent distress, - - Morbidly obese HEENT: Atraumatic, PERRLA, Normocephalic Oral: Moist Mucosa, No Gingival or Mucosal Lesions/ Ulcerations Neck: Supple, No Nodes, Trachea Midline Lungs: No rhonchi, No wheeze, No rales, Diminished Cardiovascular: Regular rate, Regular Rhythm, Normal S1, Normal S2, No murmurs, - - Distant heart tones secondary to body habitus Abdomen: Bowel Sounds Present, Soft, Non Tender, Obese Extremities: No clubbing, No cyanosis, Edema Skin: - - No significant change from previous Musculoskeletal: No Tenderness to Palpation of Joints or Extremities Lymphatic: No Cervical, Supraclavicular, or Inguinal Adenopathy Neurological: Neuro grossly intact Psych/Mental Status: Alert and oriented to time, place, person, mood and affect Vital Signs Temp Pulse Resp BP Pulse Ox 97.7 F L 85 21 H 146/65 H 91 06/17/17 05:00 06/17/17 06:45 06/17/17 05:00 06/17/17 06:45 06/17/17 05:00 Oxygen Flow Rate (L/min) 2 Oxygen Delivery Method Nasal Cannula Weight: 246 lb 14.684 oz Body Mass Index (BMI) 40.8 Intake and Output for Last 24 Hours 06/15/17 06/16/17 06/17/17 23:59 23:59 23:59 Intake Total 650 / 650 75 / 75 Output Total 5775 / 5775 500 / 500 Balance -5125 / -5125 -425 / -425 Labs (Last 48 Hours) 06/16/17 06/16/17 06/16/17 09:50 10:00 11:51 WBC RBC Hgb Hct MCV MCH MCHC RDW RDW Differential Plt Count MPV Immature Gran % (Auto) Neut % (Auto) Lymph % (Auto) [place] % (Auto) Eos % (Auto) Baso % (Auto) Absolute Neuts (auto) Absolute Lymphs (auto) Total Counted PT INR Sodium Potassium Chloride Carbon Dioxide Anion Gap BUN Creatinine Estim Creat Clear Calc Est GFR (MDRD) Af Amer Est GFR (MDRD) Non-Af BUN/Creatinine Ratio Glucose Calcium Magnesium Total Bilirubin AST ALT Alkaline Phosphatase Troponin I Total Protein Albumin Globulin Albumin/Globulin Ratio Triglycerides Cholesterol LDL Cholesterol VLDL Cholesterol HDL Cholesterol Urine Color Yellow Urine Clarity Clear Urine pH 6.0 Ur Specific [place] 1.015 Urine Protein 30 H Urine Glucose (UA) Normal Urine Ketones Negative Urine Occult Blood 10 H Urine Nitrite Negative Urine Bilirubin Negative Urine Urobilinogen Normal Ur Leukocyte Esterase Negative Urine RBC 0-5 SEEN Urine WBC 0 SEEN Ur Squamous Epith Cells 0 SEEN Urine Bacteria 0 SEEN Urine Mucus 0 SEEN MRSA (PCR) Negative POC Glucose 85 06/16/17 06/16/17 06/16/17 13:15 13:15 16:10 WBC RBC Hgb Hct MCV MCH MCHC RDW RDW Differential Plt Count MPV Immature Gran % (Auto) Neut % (Auto) Lymph % (Auto) [place] % (Auto) Eos % (Auto) Baso % (Auto) Absolute Neuts (auto) Absolute Lymphs (auto) Total Counted PT INR Sodium Potassium Chloride Carbon Dioxide Anion Gap BUN Creatinine Estim Creat Clear Calc Est GFR (MDRD) Af Amer Est GFR (MDRD) Non-Af BUN/Creatinine Ratio Glucose Calcium Magnesium Total Bilirubin AST ALT Alkaline Phosphatase Troponin I 1.10 H* 0.63 H* Total Protein Albumin Globulin Albumin/Globulin Ratio Triglycerides 46 Cholesterol 74 LDL Cholesterol 15 VLDL Cholesterol 9 HDL Cholesterol 50 Urine Color Urine Clarity Urine pH Ur Specific [place] Urine Protein Urine Glucose (UA) Urine Ketones Urine Occult Blood Urine Nitrite Urine Bilirubin Urine Urobilinogen Ur Leukocyte Esterase Urine RBC Urine WBC Ur Squamous Epith Cells Urine Bacteria Urine Mucus MRSA (PCR) POC Glucose 06/16/17 06/16/17 06/16/17 16:16 21:32 21:40 WBC RBC Hgb Hct MCV MCH MCHC RDW RDW Differential Plt Count MPV Immature Gran % (Auto) Neut % (Auto) Lymph % (Auto) [place] % (Auto) Eos % (Auto) Baso % (Auto) Absolute Neuts (auto) Absolute Lymphs (auto) Total Counted PT INR Sodium Potassium Chloride Carbon Dioxide Anion Gap BUN Creatinine Estim Creat Clear Calc Est GFR (MDRD) Af Amer Est GFR (MDRD) Non-Af BUN/Creatinine Ratio Glucose Calcium Magnesium Total Bilirubin AST ALT Alkaline Phosphatase Troponin I Cancelled Total Protein Albumin Globulin Albumin/Globulin Ratio Triglycerides Cholesterol LDL Cholesterol VLDL Cholesterol HDL Cholesterol Urine Color Urine Clarity Urine pH Ur Specific [place] Urine Protein Urine Glucose (UA) Urine Ketones Urine Occult Blood Urine Nitrite Urine Bilirubin Urine Urobilinogen Ur Leukocyte Esterase Urine RBC Urine WBC Ur Squamous Epith Cells Urine Bacteria Urine Mucus MRSA (PCR) POC Glucose 236 H 263 H 06/16/17 06/17/17 06/17/17 22:10 04:00 04:00 WBC 2.6 L RBC 4.66 Hgb 12.9 Hct 42.2 MCV 90.6 MCH 27.7 MCHC 30.6 L RDW 14.0 RDW Differential 46.1 H Plt Count 133 L MPV 9.4 Immature Gran % (Auto) 0.000 Neut % (Auto) 68.0 Lymph % (Auto) 25.0 [place] % (Auto) 6.6 Eos % (Auto) 0.0 Baso % (Auto) 0.4 Absolute Neuts (auto) 1.7 L Absolute Lymphs (auto) 0.64 L Total Counted Not Reportable PT 31.7 H INR 3.0 Sodium Potassium Chloride Carbon Dioxide Anion Gap BUN Creatinine Estim Creat Clear Calc Est GFR (MDRD) Af Amer Est GFR (MDRD) Non-Af BUN/Creatinine Ratio Glucose Calcium Magnesium Total Bilirubin AST ALT Alkaline Phosphatase Troponin I 1.02 H* Total Protein Albumin Globulin Albumin/Globulin Ratio Triglycerides Cholesterol LDL Cholesterol VLDL Cholesterol HDL Cholesterol Urine Color Urine Clarity Urine pH Ur Specific [place] Urine Protein Urine Glucose (UA) Urine Ketones Urine Occult Blood Urine Nitrite Urine Bilirubin Urine Urobilinogen Ur Leukocyte Esterase Urine RBC Urine WBC Ur Squamous Epith Cells Urine Bacteria Urine Mucus MRSA (PCR) POC Glucose 06/17/17 06/17/17 04:00 04:00 WBC RBC Hgb Hct MCV MCH MCHC RDW RDW Differential Plt Count MPV Immature Gran % (Auto) Neut % (Auto) Lymph % (Auto) [place] % (Auto) Eos % (Auto) Baso % (Auto) Absolute Neuts (auto) Absolute Lymphs (auto) Total Counted PT INR Sodium 136 Potassium 4.0 Chloride 95 L Carbon Dioxide 35.0 H Anion Gap 6 BUN 38 H Creatinine 1.10 H Estim Creat Clear Calc 44.55 Est GFR (MDRD) Af Amer 63 Est GFR (MDRD) Non-Af 52 L BUN/Creatinine Ratio 34.5 H Glucose 249 H Calcium 8.9 Magnesium 1.8 Total Bilirubin 0.60 AST 16 ALT 18 Alkaline Phosphatase 117 Troponin I 1.06 H* Total Protein 7.3 Albumin 2.5 L Globulin 4.8 H Albumin/Globulin Ratio 0.5 L Triglycerides 58 Cholesterol 72 LDL Cholesterol 11 VLDL Cholesterol 12 HDL Cholesterol 49 Urine Color Urine Clarity Urine pH Ur Specific [place] Urine Protein Urine Glucose (UA) Urine Ketones Urine Occult Blood Urine Nitrite Urine Bilirubin Urine Urobilinogen Ur Leukocyte Esterase Urine RBC Urine WBC Ur Squamous Epith Cells Urine Bacteria Urine Mucus MRSA (PCR) POC Glucose Clinical Impression(s) from Imaging Studies Chest X-Ray 06/16/17 05:43 IMPRESSION: Free soft interstitial prominence, slightly more left compared to right. Possible inflammatory process rather than asymmetric vascular congestion. Suspect underlying COPD component. Postsurgical changes as above. Electronically Signed: Suze Schuster MD at 6:48 EDT , Service support , Assessment/Plan Active and Suspected Problems NSTEMI (non-ST elevated myocardial infarction) (Acute) Influenza (Acute) Influenza A COPD with acute exacerbation (Acute) KARRIE (obstructive sleep apnea) (Suspected) RECOMMENDATIONS: 1. Continue scheduled aerosol treatments and steroids. 2. Consider vitamin K administration 3. Continue Tamiflu as ordered 4. Wean supplemental oxygen as tolerated 5. Encourage incentive spirometer use 6. Hold Coumadin for tentative cardiac catheterization once INR is less than 1.5. IMPRESSIONS: 1. Acute hypoxic respiratory insufficiency secondary to influenza A infection/ Questionable COPD with exacerbation Continue aerosol treatments. Wean supplemental oxygen to maintain saturations at or above 90%. Okay from my perspective to transition from IV steroids over to prednisone 40 mg daily. Continue Tamiflu as ordered. Strongly recommend outpatient pulmonary follow-up to that baseline PFTs can be obtained. 2. Non-ST elevation myocardial infarction/history of coronary artery disease status post CABG Continue Plavix as ordered. Cardiology is following. Tentative plans for cardiac catheterization once the patient's INR falls below 1.5. 3. Personal history of VTE The patient is chronically anticoagulated on Coumadin. She also has an IVC filter in place. At the present time, the patient's Coumadin is on hold. Agree with initiation of Lovenox once the patient's INR is less than 2.0. May need to consider vitamin K administration in order to help facilitate cardiac catheterization by the end of the week. 4. Morbid obesity/diabetes/hypertension/hyperlipidemia/sleep disordered breathing Complicates care, management, recovery and prognosis. Continue 2 L/min of supplemental oxygen nightly per home regimen. Ideally, the patient should undergo a polysomnogram for evaluation of obstructive sleep apnea. This note was generated with [employer] dictation software. It may contain incorrect words, spelling, and punctuation that were not noted in checking the note before signing. DISPOSITION: The patient is medically stable for transfer out of the intensive care unit. Code Visit Inpatient E&M: 82849 Subs Hosp L3
[2017-06-17 07:31] LABS: Bedside Glucose 250 mg/dL (70-110)
--- NOTE | 2017-06-17 08:11 | PN_ITS ---
Patient Problems: Active and Suspected Problems NSTEMI (non-ST elevated myocardial infarction) (Acute) Influenza (Acute) Influenza A COPD with acute exacerbation (Acute) KARRIE (obstructive sleep apnea) (Suspected) Subjective: 71-year-old female admitted to the intensive care unit on 06/16/2017 with NSTEMI and EKG changes, influenza A and acute exacerbation of COPD and pulmonary edema Tamiflu Day #2 TMAX: Afebrile Vital signs: systolic BP is mildly elevated. She is 90-92% saturated on 2 L nasal cannula this morning. Fluid balance: -5550 Urine output: 6275 Weight: Weight today is 246 pounds and 14 ounces, down from 253 and 5 ounces on 06/16/2017 All radiologic testing was reviewed: CXR at admission was consistent with PVC All labs were personally reviewed: White blood cell count is 2.6 today consistent with viral infection. Platelets are 133,000 and the hemoglobin is stable at 12.9. INR is still 3.0 despite holding Coumadin last night. Bicarb is 35 today and the other electrolytes are unremarkable. BUN is 38 with creatinine of 1.1, up from 0.76 at admission. 1.1 is more in line with her baseline creatinine. Troponin had decreased to 0.63 4 PM on 06/16/2017 and today is 1.06. Microbiology: Nasal swab positive for influenza A. Blood and urine cultures are pending. Telemetry: Objective: More alert and able to answer questions today. Denies SOB, palpitations, lightheadedness, CP. Rare cough - dry. - Physical Exam General: Alert, Oriented x3, Cooperative, No apparent distress HEENT: Atraumatic, PERRLA Oral: Moist Mucosa Neck: Supple, No Nodes, No Nuchal Rigidity, Trachea Midline Lungs: Clear to auscultation, No wheeze, No rales, Diminished Cardiovascular: Regular rate, Regular Rhythm, Normal S1, Normal S2, No Gallop Abdomen: Bowel Sounds Present, Soft, Non Tender, Non-Distended, Obese Extremities: No clubbing, No cyanosis, No Calf Tenderness, Edema - minimal. There is wrinkling of the skin over both lower extremities Skin: No rashes - The rash she had in the ER yesterday has resolved. Musculoskeletal: No Muscle Wasting Neurological: Cranial nerves II-XII grossly intact, Neuro grossly intact Psych/Mental Status: Normal Affect, Appropriate Vital Signs Temp Pulse Resp BP Pulse Ox 97.4 F L 76 22 H 142/55 H 90 06/17/17 07:00 06/17/17 07:39 06/17/17 07:00 06/17/17 07:00 06/17/17 07:00 Oxygen Flow Rate (L/min) 2 Oxygen Delivery Method Nasal Cannula Weight: 246 lb 14.684 oz Body Mass Index (BMI) 40.8 Intake and Output for Last 24 Hours 06/15/17 06/16/17 06/17/17 23:59 23:59 23:59 Intake Total 650 / 650 75 / 75 Output Total 5775 / 5775 500 / 500 Balance -5125 / -5125 -425 / -425 Laboratory Tests Past 24 Hrs 06/16/17 06/16/17 06/16/17 09:50 10:00 13:15 WBC RBC Hgb Hct MCV MCH MCHC RDW RDW Differential Plt Count MPV Immature Gran % (Auto) Neut % (Auto) Lymph % (Auto) [place] % (Auto) Eos % (Auto) Baso % (Auto) Absolute Neuts (auto) Absolute Lymphs (auto) Total Counted PT INR Sodium Potassium Chloride Carbon Dioxide Anion Gap BUN Creatinine Estim Creat Clear Calc Est GFR (MDRD) Af Amer Est GFR (MDRD) Non-Af BUN/Creatinine Ratio Glucose Calcium Magnesium Total Bilirubin AST ALT Alkaline Phosphatase Troponin I 1.10 H* Total Protein Albumin Globulin Albumin/Globulin Ratio Triglycerides Cholesterol LDL Cholesterol VLDL Cholesterol HDL Cholesterol Urine Color Yellow Urine Clarity Clear Urine pH 6.0 Ur Specific [place] 1.015 Urine Protein 30 H Urine Glucose (UA) Normal Urine Ketones Negative Urine Occult Blood 10 H Urine Nitrite Negative Urine Bilirubin Negative Urine Urobilinogen Normal Ur Leukocyte Esterase Negative Urine RBC 0-5 SEEN Urine WBC 0 SEEN Ur Squamous Epith Cells 0 SEEN Urine Bacteria 0 SEEN Urine Mucus 0 SEEN MRSA (PCR) Negative 06/16/17 06/16/17 06/16/17 13:15 16:10 21:40 WBC RBC Hgb Hct MCV MCH MCHC RDW RDW Differential Plt Count MPV Immature Gran % (Auto) Neut % (Auto) Lymph % (Auto) [place] % (Auto) Eos % (Auto) Baso % (Auto) Absolute Neuts (auto) Absolute Lymphs (auto) Total Counted PT INR Sodium Potassium Chloride Carbon Dioxide Anion Gap BUN Creatinine Estim Creat Clear Calc Est GFR (MDRD) Af Amer Est GFR (MDRD) Non-Af BUN/Creatinine Ratio Glucose Calcium Magnesium Total Bilirubin AST ALT Alkaline Phosphatase Troponin I 0.63 H* Cancelled Total Protein Albumin Globulin Albumin/Globulin Ratio Triglycerides 46 Cholesterol 74 LDL Cholesterol 15 VLDL Cholesterol 9 HDL Cholesterol 50 Urine Color Urine Clarity Urine pH Ur Specific [place] Urine Protein Urine Glucose (UA) Urine Ketones Urine Occult Blood Urine Nitrite Urine Bilirubin Urine Urobilinogen Ur Leukocyte Esterase Urine RBC Urine WBC Ur Squamous Epith Cells Urine Bacteria Urine Mucus MRSA (PCR) 06/16/17 06/17/17 06/17/17 22:10 04:00 04:00 WBC 2.6 L RBC 4.66 Hgb 12.9 Hct 42.2 MCV 90.6 MCH 27.7 MCHC 30.6 L RDW 14.0 RDW Differential 46.1 H Plt Count 133 L MPV 9.4 Immature Gran % (Auto) 0.000 Neut % (Auto) 68.0 Lymph % (Auto) 25.0 [place] % (Auto) 6.6 Eos % (Auto) 0.0 Baso % (Auto) 0.4 Absolute Neuts (auto) 1.7 L Absolute Lymphs (auto) 0.64 L Total Counted Not Reportable PT 31.7 H INR 3.0 Sodium Potassium Chloride Carbon Dioxide Anion Gap BUN Creatinine Estim Creat Clear Calc Est GFR (MDRD) Af Amer Est GFR (MDRD) Non-Af BUN/Creatinine Ratio Glucose Calcium Magnesium Total Bilirubin AST ALT Alkaline Phosphatase Troponin I 1.02 H* Total Protein Albumin Globulin Albumin/Globulin Ratio Triglycerides Cholesterol LDL Cholesterol VLDL Cholesterol HDL Cholesterol Urine Color Urine Clarity Urine pH Ur Specific [place] Urine Protein Urine Glucose (UA) Urine Ketones Urine Occult Blood Urine Nitrite Urine Bilirubin Urine Urobilinogen Ur Leukocyte Esterase Urine RBC Urine WBC Ur Squamous Epith Cells Urine Bacteria Urine Mucus MRSA (PCR) 06/17/17 06/17/17 04:00 04:00 WBC RBC Hgb Hct MCV MCH MCHC RDW RDW Differential Plt Count MPV Immature Gran % (Auto) Neut % (Auto) Lymph % (Auto) [place] % (Auto) Eos % (Auto) Baso % (Auto) Absolute Neuts (auto) Absolute Lymphs (auto) Total Counted PT INR Sodium 136 Potassium 4.0 Chloride 95 L Carbon Dioxide 35.0 H Anion Gap 6 BUN 38 H Creatinine 1.10 H Estim Creat Clear Calc 44.55 Est GFR (MDRD) Af Amer 63 Est GFR (MDRD) Non-Af 52 L BUN/Creatinine Ratio 34.5 H Glucose 249 H Calcium 8.9 Magnesium 1.8 Total Bilirubin 0.60 AST 16 ALT 18 Alkaline Phosphatase 117 Troponin I 1.06 H* Total Protein 7.3 Albumin 2.5 L Globulin 4.8 H Albumin/Globulin Ratio 0.5 L Triglycerides 58 Cholesterol 72 LDL Cholesterol 11 VLDL Cholesterol 12 HDL Cholesterol 49 Urine Color Urine Clarity Urine pH Ur Specific [place] Urine Protein Urine Glucose (UA) Urine Ketones Urine Occult Blood Urine Nitrite Urine Bilirubin Urine Urobilinogen Ur Leukocyte Esterase Urine RBC Urine WBC Ur Squamous Epith Cells Urine Bacteria Urine Mucus MRSA (PCR) POC Glucose 06/17/17 06/16/17 06/16/17 06:44 21:32 16:16 POC Glucose 250 H 263 H 236 H 06/16/17 11:51 POC Glucose 85 Assessment/Plan Active and Suspected Problems NSTEMI (non-ST elevated myocardial infarction) (Acute) Influenza (Acute) Influenza A COPD with acute exacerbation (Acute) KARRIE (obstructive sleep apnea) (Suspected) Impressions 1. non-STEMI 2. influenza A 3. Acute exacerbation COPD 4. Drug reaction with Allergic dermatitis 5. CAD 6. CABG in 2011 7. DM II 8. HTN 9. HLD 10. Morbid obesity 11. suspected sleep apnea - wear O2 at 2 LPM at night only 12. Chronic anticoagulation with warfarin 13. 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 Status post PIOTR/BSO-possible endometrial cancer, patient not sure 16. Suspected sleep apnea - has never been tested but, she wears oxygen at night 17. Acute CHF due to ischemic/NSTEMI 18. Acute metabolic encephalopathy due to infection, CHF Increase the coreg to 6.25 BID to better control the BP transition to PO Lasix 40 mg BID Vitamin K 2.5 mg now...recheck INR in the AM Possible cath in the AM Transfer to PCU Continue the Tamiflu Adjust the insulin to keep the BS's < 200 Transition to Prednisone....I suspect a lot of the wheezing yesterday was due to diastolic CHF related to ischemia Recheck Lab in the AM. Code Visit Inpatient E&M: 91577 Subs Hosp L3
[2017-06-17] MEDS: Psyllium 1 PACKET PO (10:39)
[2017-06-17] MEDS: Aspirin E.C. 81 MG Tablet PO (10:39)
[2017-06-17] MEDS: Losartan Potassium 25 MG Tablet PO (10:40)
[2017-06-17] MEDS: Clopidogrel Bisulfate 75 MG Tablet PO (10:40)
[2017-06-17] MEDS: guaiFENesin 1,200 MG Tablet 1200 MG PO ×2 (10:40→21:29)
[2017-06-17] MEDS: Oseltamivir Phosphate 30 MG Capsule PO ×2 (10:41→21:30)
[2017-06-17] MEDS: Furosemide 40 MG Tablet PO ×2 (11:28→19:04)
[2017-06-17 11:30] LABS: Bedside Glucose 322 mg/dL (70-110)
[2017-06-17] MEDS: Phytonadione (Vit K) 10 MG/ML Ampul 2.5 MG PO ×2 (12:04→19:04)
--- NOTE | 2017-06-17 14:47 | CASEMGMT ---
RN CM ASSESSMENT COMPLETE. Transition Planning/Care Coordination: Patient lives with son and son's girlfriend. The patient reports she receives assistance with IADLs and some ADLs. The patient is not current with home health care, but would be agreeable if needed. The patient would want to use [facility]. The patient reports she has nocturnal oxygen, supplied by [facility], at 2 LPM. The patient's goal is to return home at discharge. RN CM will need to follow patient's hospital course for final transition and care coordination needs. Disposition Plan: Anticipate Home with support of family. BRYCE Moore, RN-BC, CCM
[2017-06-17 15:19] LABS: International Normalized Ratio 2.9; Prothrombin Time (Protime)PT. 30.5 SECONDS (11.7-14.9)
--- NOTE | 2017-06-17 15:54 | PCM.PN.CARD ---
Subjectve: Patient continues to improve dramatically overnight, with net -5 L, and pulmonary wheezing almost completely resolved. No chest pain. Peak troponin I 0.06. Telemetry showed normal sinus rhythm with type I second-degree AV block. EKG showed normal sinus rhythm with new inferior T-wave inversion persistently. No chest pain. INR still 2.9. Objective: Vital Signs Temp Pulse Resp BP Pulse Ox 98.8 F 92 20 H 137/59 H 92 06/17/17 12:00 06/17/17 13:27 06/17/17 13:27 06/17/17 12:00 06/17/17 12:00 Oxygen Flow Rate (L/min) 3 Oxygen Delivery Method Nasal Cannula Weight: 246 lb 14.684 oz Body Mass Index (BMI) 40.8 Intake and Output for Last 24 Hours 06/15/17 06/16/17 06/17/17 23:59 23:59 23:59 Intake Total 650 / 650 555 / 555 Output Total 5775 / 5775 750 / 750 Balance -5125 / -5125 -195 / -195 General: Awake, Alert, Oriented x 3 HEENT: PERRL, EOMI, Sclera Non Icteric Neck: Supple, Good ROM, No Lymph Node Enlargement Lungs: Expiratory Wheezes-Derian Cardiovascular: Regular Rhythm, Normal S1, Normal S2, No Murmurs, No Rubs, No Gallops Vascular: No Carotid Bruits, Normal Femoral Pulses, Normal Radial Pulses, Normal Dorsalis Pedal Pulse, Normal Posterior Tibial Pulses Abdomen: Bowel Sounds Present, Soft, Non Tender, No HSM, No Organomegaly Extremities: No Cyanosis, No Clubbing, No edema Neurological: No Focal Motor or Sensory Deficit 06/16/17 16:10: Troponin I 0.63 H* 06/16/17 21:40: Troponin I Cancelled 06/16/17 22:10: Troponin I 1.02 H* 06/17/17 04:00: PT 31.7 H, INR 3.0 06/17/17 04:00: WBC 2.6 L, RBC 4.66, Hgb 12.9, Hct 42.2, MCV 90.6, MCH 27.7, MCHC 30.6 L, RDW 14.0, RDW Differential 46.1 H, Plt Count 133 L, MPV 9.4, Immature Gran % (Auto) 0.000, Neut % (Auto) 68.0, Lymph % (Auto) 25.0, [place] % (Auto) 6.6, Eos % (Auto) 0.0, Baso % (Auto) 0.4, Absolute Neuts (auto) 1.7 L, Total Counted Not Reportable 06/17/17 04:00: Sodium 136, Potassium 4.0, Chloride 95 L, Carbon Dioxide 35.0 H, Anion Gap 6, BUN 38 H, Creatinine 1.10 H, Est GFR (MDRD) Af Amer 63, Est GFR (MDRD) Non-Af 52 L, BUN/Creatinine Ratio 34.5 H, Glucose 249 H, Calcium 8.9, Magnesium 1.8, Total Bilirubin 0.60, Triglycerides 58, Cholesterol 72, LDL Cholesterol 11, VLDL Cholesterol 12, HDL Cholesterol 49 06/17/17 04:00: Troponin I 1.06 H* 06/17/17 15:00: PT 30.5 H, INR 2.9 Rhythm: As above EKG: As above ECHO: LV function around 55% with mild mid anterior hypokinesis, RVSP estimated to be 22 mmHg which may be underestimated. Stress Test: Cardiac Cath: Pending PCI: CT Surgery: Holter monitor: EPS: PPM: CXR: Chest CT Scan: Assessment/Plan 1. Coronary artery disease: Patient presents with respiratory distress, wheezing, evidence of CHF by physical exam and chest x-ray, in the face of a adequately anticoagulated INR 3.1 and troponin I of 1.21. Troponin trending down now to 1.06, INR now 2.9 as of this afternoon. In addition she has new dynamic lateral ST segment changes with inferior T-wave inversion. Echocardiogram shows mild mid anterior hypokinesis but no significant lateral hypokinesis although the images are challenging. At this point would recommend continuing baby aspirin, continuing 75 mg a day. Given the patient's presenting symptoms I am concerned that she may have coronary insufficiency or bypass graft malfunction to explain part of her symptoms. Although she did test positive for the flu and has been deteriorating for the past 3 weeks from a respiratory standpoint, her troponin may all be type II demand ischemia, but will not be known until she undergoes a left heart catheterization with graft angiography once her INR is at least less than 1.8. Recommend we obtain her old records from Dr. Hameed's office or from [facility] to determine where her bypass grafts are located. At this point I would recommend holding her Coumadin and starting her on either IV heparin or subcu Lovenox once her INR drops below 2.0. Given her DVTs and possible PE in the past she will require lifelong anticoagulation therapy. Once her INR is less than 1.8, would proceed with left heart catheterization with graft angiography. As her INR this morning was 3.0, recommend giving her vitamin K 2.5 mg ?1. Given the patient's aggressive diuresis with IV Lasix, recommend switching her from IV Lasix to Lasix 40 mg p.o. twice daily. 2. Congestive heart failure: Recommend initiating Coreg 6.25 mg p.o. twice daily. If the patient develops reactive airway disease, would recommend using it to 3.125 mill grams p.o. twice daily.. Recommend continuing losartan 25 mg's p.o. daily and titrating his up for afterload reduction and hypertension control. 3. Hyperlipidemia: Patient's LDL is 11 and HDL is 49. Continue Lipitor. 4. Thank you very much for the opportunity to participate in the cardiac care of your patient. We will plan for left heart cath tomorrow morning if INR less than 1.8. Code Visit Inpatient E&M: 83230 Subs Hosp L2
--- NOTE | 2017-06-17 16:00 | PN.CARD_ITS ---
Subjectve: Patient continues to improve dramatically overnight, with net -5 L, and pulmonary wheezing almost completely resolved. No chest pain. Peak troponin I 0.06. Telemetry showed normal sinus rhythm with type I second-degree AV block. EKG showed normal sinus rhythm with new inferior T-wave inversion persistently. No chest pain. INR still 2.9. Objective: Vital Signs Temp Pulse Resp BP Pulse Ox 98.8 F 92 20 H 137/59 H 92 06/17/17 12:00 06/17/17 13:27 06/17/17 13:27 06/17/17 12:00 06/17/17 12:00 Oxygen Flow Rate (L/min) 3 Oxygen Delivery Method Nasal Cannula Weight: 246 lb 14.684 oz Body Mass Index (BMI) 40.8 Intake and Output for Last 24 Hours 06/15/17 06/16/17 06/17/17 23:59 23:59 23:59 Intake Total 650 / 650 555 / 555 Output Total 5775 / 5775 750 / 750 Balance -5125 / -5125 -195 / -195 General: Awake, Alert, Oriented x 3 HEENT: PERRL, EOMI, Sclera Non Icteric Neck: Supple, Good ROM, No Lymph Node Enlargement Lungs: Expiratory Wheezes-Derian Cardiovascular: Regular Rhythm, Normal S1, Normal S2, No Murmurs, No Rubs, No Gallops Vascular: No Carotid Bruits, Normal Femoral Pulses, Normal Radial Pulses, Normal Dorsalis Pedal Pulse, Normal Posterior Tibial Pulses Abdomen: Bowel Sounds Present, Soft, Non Tender, No HSM, No Organomegaly Extremities: No Cyanosis, No Clubbing, No edema Neurological: No Focal Motor or Sensory Deficit 06/16/17 16:10: Troponin I 0.63 H* 06/16/17 21:40: Troponin I Cancelled 06/16/17 22:10: Troponin I 1.02 H* 06/17/17 04:00: PT 31.7 H, INR 3.0 06/17/17 04:00: WBC 2.6 L, RBC 4.66, Hgb 12.9, Hct 42.2, MCV 90.6, MCH 27.7, MCHC 30.6 L, RDW 14.0, RDW Differential 46.1 H, Plt Count 133 L, MPV 9.4, Immature Gran % (Auto) 0.000, Neut % (Auto) 68.0, Lymph % (Auto) 25.0, [place] % ( Auto) 6.6, Eos % (Auto) 0.0, Baso % (Auto) 0.4, Absolute Neuts (auto) 1.7 L, Total Counted Not Reportable 06/17/17 04:00: Sodium 136, Potassium 4.0, Chloride 95 L, Carbon Dioxide 35.0 H , Anion Gap 6, BUN 38 H, Creatinine 1.10 H, Est GFR (MDRD) Af Amer 63, Est GFR ( MDRD) Non-Af 52 L, BUN/Creatinine Ratio 34.5 H, Glucose 249 H, Calcium 8.9, Magnesium 1.8, Total Bilirubin 0.60, Triglycerides 58, Cholesterol 72, LDL Cholesterol 11, VLDL Cholesterol 12, HDL Cholesterol 49 06/17/17 04:00: Troponin I 1.06 H* 06/17/17 15:00: PT 30.5 H, INR 2.9 Rhythm: As above EKG: As above ECHO: LV function around 55% with mild mid anterior hypokinesis, RVSP estimated to be 22 mmHg which may be underestimated. Stress Test: Cardiac Cath: Pending PCI: CT Surgery: Holter monitor: EPS: PPM: CXR: Chest CT Scan: Assessment/Plan 1. Coronary artery disease: Patient presents with respiratory distress, wheezing, evidence of CHF by physical exam and chest x-ray, in the face of a adequately anticoagulated INR 3.1 and troponin I of 1.21. Troponin trending down now to 1.06, INR now 2.9 as of this afternoon. In addition she has new dynamic lateral ST segment changes with inferior T-wave inversion. Echocardiogram shows mild mid anterior hypokinesis but no significant lateral hypokinesis although the images are challenging. At this point would recommend continuing baby aspirin, continuing 75 mg a day. Given the patient's presenting symptoms I am concerned that she may have coronary insufficiency or bypass graft malfunction to explain part of her symptoms. Although she did test positive for the flu and has been deteriorating for the past 3 weeks from a respiratory standpoint, her troponin may all be type II demand ischemia, but will not be known until she undergoes a left heart catheterization with graft angiography once her INR is at least less than 1.8. Recommend we obtain her old records from Dr. Hameed's office or from [facility] to determine where her bypass grafts are located. At this point I would recommend holding her Coumadin and starting her on either IV heparin or subcu Lovenox once her INR drops below 2.0. Given her DVTs and possible PE in the past she will require lifelong anticoagulation therapy. Once her INR is less than 1.8, would proceed with left heart catheterization with graft angiography. As her INR this morning was 3.0, recommend giving her vitamin K 2.5 mg ?1. Given the patient's aggressive diuresis with IV Lasix, recommend switching her from IV Lasix to Lasix 40 mg p.o. twice daily. 2. Congestive heart failure: Recommend initiating Coreg 6.25 mg p.o. twice daily. If the patient develops reactive airway disease, would recommend using it to 3.125 mill grams p.o. twice daily.. Recommend continuing losartan 25 mg' s p.o. daily and titrating his up for afterload reduction and hypertension control. 3. Hyperlipidemia: Patient's LDL is 11 and HDL is 49. Continue Lipitor. 4. Thank you very much for the opportunity to participate in the cardiac care of your patient. We will plan for left heart cath tomorrow morning if INR less than 1.8. Code Visit Inpatient E&M: 45895 Subs Hosp L2
[2017-06-17 17:00] LABS: Bedside Glucose 371 mg/dL (70-110)
[2017-06-17] MEDS: Atorvastatin Calcium 40 MG Tablet PO (21:29)
[2017-06-17 21:40] LABS: Bedside Glucose 295 mg/dL (70-110)
[2017-06-18] VITALS (35 sets, daily range): BP systolic 110–174; BP diastolic 49–74; PULSE 54–81; RESP 16–26; TEMP 36.1–37.1; O2SAT 91–99; BMI 39.4
[2017-06-18] MEDS: 0.9% NaCl Peripheral Flush Adult/Peds IV (04:03)
[2017-06-18 04:36] LABS: Absolute Lymphocyte Count 0.92 X10^3/ul (0.83-4.51); Absolute Neutrophil Count 5.2 X10^3/uL (2.0-7.7); Basophil# 0.01 X10^3/uL; Basophil% 0.2 % (0-1); Hematocrit 41.8 % (37-47); International Normalized Ratio 1.5; Lymphocyte # 0.92 X10^3/ul (4.0); Mean Corp Hgb Conc 31.1 g/gl (32-36); Mean Corpuscular Volume 89.9 fL (81-99); Mean Platelet Vol. 9.4 fl (6.2-12.0); Monocyte# 0.46 X10^3/uL; Neutrophil # 5.16 X10^3/uL (2.7-7.7); Neutrophil % 78.6 % (47-70); Partial Thromboplast Time 30.3 Seconds (24.1-36.2); Platelet Count 153 K/mm3 (150-450); Prothrombin Time (Protime)PT. 18.5 SECONDS (11.7-14.9); RBC Distribution Width CV 14.3 % (11.6-14.6); RBC Distribution Width SD 46.7 fl (35.1-43.9); Red Blood Count 4.65 M/mm3 (4.2-5.4); White Blood Count 6.6 K/mm3 (4.4-11.0)
[2017-06-18 04:37] LABS: POSITIVE COUNT NO; POSITIVE DIFFERENTIAL NO; POSITIVE MORPHOLOGY NO
[2017-06-18 04:47] LABS: Anion Gap 5 (5-15); BUN 41 mg/dL (7-18); BUN/Creat Ratio 41.7 RATIO (10-20); Calcium,Total 8.9 mg/dL (8.5-10.1); Chloride 92 mmol/L (98-107); Creatinine, Serum 0.98 mg/dL (0.55-1.02); EST Glomerular Filtration Rate 59 mL/min (>60); Est Glom Filt Rate - Afr Amer 72 mL/min (>60); Glucose 237 mg/dL (74-106); Potassium 3.9 mmol/L (3.5-5.1); Sodium Level 136 mmol/L (136-145)
[2017-06-18] MEDS: CHLORHEXIDINE GLUC 2% CLOTH 1 EACH TOWELETTE TOPICAL (05:54)
[2017-06-18] MEDS: Nitroglycerin Oint 1 INCH PACKET TRANSDERM. ×4 (05:55→23:32)
[2017-06-18] MEDS: Losartan Potassium 25 MG Tablet PO (05:55)
--- NOTE | 2017-06-18 05:55 | EKG12_ITS ---
Test Reason : AM-REPEAT Blood Pressure : / mmHG Vent. Rate : 067 BPM Atrial Rate : 087 BPM P-R Int : 000 ms QRS Dur : 092 ms QT Int : 416 ms P-R-T Axes : 000 025 -38 degrees QTc Int : 439 ms Sinus rhythm with 2nd degree A-V block ([place]ob[place] I) T wave abnormality, consider inferior ischemia Abnormal ECG When compared with ECG of 17-JUN-2017 05:01, MANUAL COMPARISON REQUIRED, DATA IS UNCONFIRMED Confirmed by SOUTH PENDLETON ([id number]), graphic editor WILLIAM LUNSFORD ([id number]) on 06/21/2017 2:35:12 PM Referred By: MALISSA Confirmed By:SOUTH PENDLETON
[2017-06-18] MEDS: Aspirin E.C. 81 MG Tablet PO (05:56)
[2017-06-18] MEDS: Clopidogrel Bisulfate 75 MG Tablet PO (05:56)
--- NOTE | 2017-06-18 06:31 | NURSING ---
Spoke with pt's son Carlos Enrique and received telephone consent for heart catheterization today. Witnessed by Justo Rey RN.
--- NOTE | 2017-06-18 06:41 | PCM.PN.INT ---
Subjective: The patient was seen and examined at the bedside this morning. Events from the last 24 hours have been reviewed. The patient is currently afebrile, hemodynamically stable and maintaining appropriate oxygen saturations on 2 L/min via nasal cannula. No overnight issues were identified by the nursing staff. There are tentative plans to proceed with heart catheterization this morning. INR was noted to be 1.5 this morning. Objective: The patient's most recent lab work, culture data and imaging studies have all been personally reviewed. Plain film chest x-ray revealed a mild degree of pulmonary vascular congestion. A surface echocardiogram was obtained which revealed mild concentric LVH with an ejection fraction of 55% and mild hypokinesis of the LV. The RV was noted to be moderately dilated with mild to moderate global RV systolic dysfunction. Right ventricular systolic pressure was estimated to be 22 mmHg. Rapid influenza screen was positive for the presence of influenza A. Blood and urine cultures have shown no growth to date. General: Alert, Cooperative, No apparent distress, - - Morbidly obese HEENT: Atraumatic, PERRLA, Normocephalic Oral: No Gingival or Mucosal Lesions/ Ulcerations Neck: Supple, No Nodes, Trachea Midline Lungs: No rhonchi, No wheeze, No rales, Diminished Cardiovascular: Regular rate, Regular Rhythm, Normal S1, Normal S2, No murmurs Abdomen: Bowel Sounds Present, Soft, Non Tender, Obese Extremities: No clubbing, No cyanosis, Edema Skin: - - No significant change from previous Musculoskeletal: No Tenderness to Palpation of Joints or Extremities Lymphatic: No Cervical, Supraclavicular, or Inguinal Adenopathy Neurological: Neuro grossly intact Psych/Mental Status: Normal Affect, Appropriate Vital Signs Temp Pulse Resp BP Pulse Ox 97.7 F L 71 26 H 145/66 H 93 06/18/17 06:00 06/18/17 06:00 06/18/17 06:00 06/18/17 06:00 06/18/17 06:00 Oxygen Flow Rate (L/min) 2 Oxygen Delivery Method Nasal Cannula Weight: 244 lb 7.882 oz Body Mass Index (BMI) 40.8 Intake and Output for Last 24 Hours 06/16/17 06/17/17 06/18/17 23:59 23:59 23:59 Intake Total 650 / 650 1635 / 1635 60 / 60 Output Total 5775 / 5775 3150 / 3150 650 / 650 Balance -5125 / -5125 -1515 / -1515 -590 / -590 Labs (Last 48 Hours) 06/16/17 06/16/17 06/16/17 09:50 10:00 11:51 WBC RBC Hgb Hct MCV MCH MCHC RDW RDW Differential Plt Count MPV Immature Gran % (Auto) Neut % (Auto) Lymph % (Auto) [place] % (Auto) Eos % (Auto) Baso % (Auto) Absolute Neuts (auto) Absolute Lymphs (auto) Total Counted PT INR APTT Sodium Potassium Chloride Carbon Dioxide Anion Gap BUN Creatinine Estim Creat Clear Calc Est GFR (MDRD) Af Amer Est GFR (MDRD) Non-Af BUN/Creatinine Ratio Glucose Calcium Magnesium Total Bilirubin AST ALT Alkaline Phosphatase Troponin I Total Protein Albumin Globulin Albumin/Globulin Ratio Triglycerides Cholesterol LDL Cholesterol VLDL Cholesterol HDL Cholesterol Urine Color Yellow Urine Clarity Clear Urine pH 6.0 Ur Specific [place] 1.015 Urine Protein 30 H Urine Glucose (UA) Normal Urine Ketones Negative Urine Occult Blood 10 H Urine Nitrite Negative Urine Bilirubin Negative Urine Urobilinogen Normal Ur Leukocyte Esterase Negative Urine RBC 0-5 SEEN Urine WBC 0 SEEN Ur Squamous Epith Cells 0 SEEN Urine Bacteria 0 SEEN Urine Mucus 0 SEEN MRSA (PCR) Negative POC Glucose 85 06/16/17 06/16/17 06/16/17 13:15 13:15 16:10 WBC RBC Hgb Hct MCV MCH MCHC RDW RDW Differential Plt Count MPV Immature Gran % (Auto) Neut % (Auto) Lymph % (Auto) [place] % (Auto) Eos % (Auto) Baso % (Auto) Absolute Neuts (auto) Absolute Lymphs (auto) Total Counted PT INR APTT Sodium Potassium Chloride Carbon Dioxide Anion Gap BUN Creatinine Estim Creat Clear Calc Est GFR (MDRD) Af Amer Est GFR (MDRD) Non-Af BUN/Creatinine Ratio Glucose Calcium Magnesium Total Bilirubin AST ALT Alkaline Phosphatase Troponin I 1.10 H* 0.63 H* Total Protein Albumin Globulin Albumin/Globulin Ratio Triglycerides 46 Cholesterol 74 LDL Cholesterol 15 VLDL Cholesterol 9 HDL Cholesterol 50 Urine Color Urine Clarity Urine pH Ur Specific [place] Urine Protein Urine Glucose (UA) Urine Ketones Urine Occult Blood Urine Nitrite Urine Bilirubin Urine Urobilinogen Ur Leukocyte Esterase Urine RBC Urine WBC Ur Squamous Epith Cells Urine Bacteria Urine Mucus MRSA (PCR) POC Glucose 06/16/17 06/16/1706/16/18 16:16 21:32 21:40 WBC RBC Hgb Hct MCV MCH MCHC RDW RDW Differential Plt Count MPV Immature Gran % (Auto) Neut % (Auto) Lymph % (Auto) [place] % (Auto) Eos % (Auto) Baso % (Auto) Absolute Neuts (auto) Absolute Lymphs (auto) Total Counted PT INR APTT Sodium Potassium Chloride Carbon Dioxide Anion Gap BUN Creatinine Estim Creat Clear Calc Est GFR (MDRD) Af Amer Est GFR (MDRD) Non-Af BUN/Creatinine Ratio Glucose Calcium Magnesium Total Bilirubin AST ALT Alkaline Phosphatase Troponin I Cancelled Total Protein Albumin Globulin Albumin/Globulin Ratio Triglycerides Cholesterol LDL Cholesterol VLDL Cholesterol HDL Cholesterol Urine Color Urine Clarity Urine pH Ur Specific [place] Urine Protein Urine Glucose (UA) Urine Ketones Urine Occult Blood Urine Nitrite Urine Bilirubin Urine Urobilinogen Ur Leukocyte Esterase Urine RBC Urine WBC Ur Squamous Epith Cells Urine Bacteria Urine Mucus MRSA (PCR) POC Glucose 236 H 263 H 06/16/17 06/17/17 06/17/17 22:10 04:00 04:00 WBC 2.6 L RBC 4.66 Hgb 12.9 Hct 42.2 MCV 90.6 MCH 27.7 MCHC 30.6 L RDW 14.0 RDW Differential 46.1 H Plt Count 133 L MPV 9.4 Immature Gran % (Auto) 0.000 Neut % (Auto) 68.0 Lymph % (Auto) 25.0 [place] % (Auto) 6.6 Eos % (Auto) 0.0 Baso % (Auto) 0.4 Absolute Neuts (auto) 1.7 L Absolute Lymphs (auto) 0.64 L Total Counted Not Reportable PT 31.7 H INR 3.0 APTT Sodium Potassium Chloride Carbon Dioxide Anion Gap BUN Creatinine Estim Creat Clear Calc Est GFR (MDRD) Af Amer Est GFR (MDRD) Non-Af BUN/Creatinine Ratio Glucose Calcium Magnesium Total Bilirubin AST ALT Alkaline Phosphatase Troponin I 1.02 H* Total Protein Albumin Globulin Albumin/Globulin Ratio Triglycerides Cholesterol LDL Cholesterol VLDL Cholesterol HDL Cholesterol Urine Color Urine Clarity Urine pH Ur Specific [place] Urine Protein Urine Glucose (UA) Urine Ketones Urine Occult Blood Urine Nitrite Urine Bilirubin Urine Urobilinogen Ur Leukocyte Esterase Urine RBC Urine WBC Ur Squamous Epith Cells Urine Bacteria Urine Mucus MRSA (PCR) POC Glucose 06/17/17 06/17/17 06/17/17 04:00 04:00 06:44 WBC RBC Hgb Hct MCV MCH MCHC RDW RDW Differential Plt Count MPV Immature Gran % (Auto) Neut % (Auto) Lymph % (Auto) [place] % (Auto) Eos % (Auto) Baso % (Auto) Absolute Neuts (auto) Absolute Lymphs (auto) Total Counted PT INR APTT Sodium 136 Potassium 4.0 Chloride 95 L Carbon Dioxide 35.0 H Anion Gap 6 BUN 38 H Creatinine 1.10 H Estim Creat Clear Calc 44.55 Est GFR (MDRD) Af Amer 63 Est GFR (MDRD) Non-Af 52 L BUN/Creatinine Ratio 34.5 H Glucose 249 H Calcium 8.9 Magnesium 1.8 Total Bilirubin 0.60 AST 16 ALT 18 Alkaline Phosphatase 117 Troponin I 1.06 H* Total Protein 7.3 Albumin 2.5 L Globulin 4.8 H Albumin/Globulin Ratio 0.5 L Triglycerides 58 Cholesterol 72 LDL Cholesterol 11 VLDL Cholesterol 12 HDL Cholesterol 49 Urine Color Urine Clarity Urine pH Ur Specific [place] Urine Protein Urine Glucose (UA) Urine Ketones Urine Occult Blood Urine Nitrite Urine Bilirubin Urine Urobilinogen Ur Leukocyte Esterase Urine RBC Urine WBC Ur Squamous Epith Cells Urine Bacteria Urine Mucus MRSA (PCR) POC Glucose 250 H 06/17/17 06/17/17 06/17/17 11:26 15:00 16:53 WBC RBC Hgb Hct MCV MCH MCHC RDW RDW Differential Plt Count MPV Immature Gran % (Auto) Neut % (Auto) Lymph % (Auto) [place] % (Auto) Eos % (Auto) Baso % (Auto) Absolute Neuts (auto) Absolute Lymphs (auto) Total Counted PT 30.5 H INR 2.9 APTT Sodium Potassium Chloride Carbon Dioxide Anion Gap BUN Creatinine Estim Creat Clear Calc Est GFR (MDRD) Af Amer Est GFR (MDRD) Non-Af BUN/Creatinine Ratio Glucose Calcium Magnesium Total Bilirubin AST ALT Alkaline Phosphatase Troponin I Total Protein Albumin Globulin Albumin/Globulin Ratio Triglycerides Cholesterol LDL Cholesterol VLDL Cholesterol HDL Cholesterol Urine Color Urine Clarity Urine pH Ur Specific [place] Urine Protein Urine Glucose (UA) Urine Ketones Urine Occult Blood Urine Nitrite Urine Bilirubin Urine Urobilinogen Ur Leukocyte Esterase Urine RBC Urine WBC Ur Squamous Epith Cells Urine Bacteria Urine Mucus MRSA (PCR) POC Glucose 322 H 371 H 03/15/18 03/16/18 03/16/18 21:25 04:00 04:00 WBC RBC Hgb Hct MCV MCH MCHC RDW RDW Differential Plt Count MPV Immature Gran % (Auto) Neut % (Auto) Lymph % (Auto) [place] % (Auto) Eos % (Auto) Baso % (Auto) Absolute Neuts (auto) Absolute Lymphs (auto) Total Counted PT 18.5 H INR 1.5 APTT 30.3 Sodium 136 Potassium 3.9 Chloride 92 L Carbon Dioxide 39.0 H Anion Gap 5 BUN 41 H Creatinine 0.98 Estim Creat Clear Calc 50.00 Est GFR (MDRD) Af Amer 72 Est GFR (MDRD) Non-Af 59 L BUN/Creatinine Ratio 41.7 H Glucose 237 H Calcium 8.9 Magnesium Total Bilirubin AST ALT Alkaline Phosphatase Troponin I Total Protein Albumin Globulin Albumin/Globulin Ratio Triglycerides Cholesterol LDL Cholesterol VLDL Cholesterol HDL Cholesterol Urine Color Urine Clarity Urine pH Ur Specific [place] Urine Protein Urine Glucose (UA) Urine Ketones Urine Occult Blood Urine Nitrite Urine Bilirubin Urine Urobilinogen Ur Leukocyte Esterase Urine RBC Urine WBC Ur Squamous Epith Cells Urine Bacteria Urine Mucus MRSA (PCR) POC Glucose 295 H 06/18/17 04:00 WBC 6.6 RBC 4.65 Hgb 13.0 Hct 41.8 MCV 89.9 MCH 28.0 MCHC 31.1 L RDW 14.3 RDW Differential 46.7 H Plt Count 153 MPV 9.4 Immature Gran % (Auto) 0.200 Neut % (Auto) 78.6 H Lymph % (Auto) 14.0 L [place] % (Auto) 7.0 Eos % (Auto) 0.0 Baso % (Auto) 0.2 Absolute Neuts (auto) 5.2 Absolute Lymphs (auto) 0.92 Total Counted Not Reportable PT INR APTT Sodium Potassium Chloride Carbon Dioxide Anion Gap BUN Creatinine Estim Creat Clear Calc Est GFR (MDRD) Af Amer Est GFR (MDRD) Non-Af BUN/Creatinine Ratio Glucose Calcium Magnesium Total Bilirubin AST ALT Alkaline Phosphatase Troponin I Total Protein Albumin Globulin Albumin/Globulin Ratio Triglycerides Cholesterol LDL Cholesterol VLDL Cholesterol HDL Cholesterol Urine Color Urine Clarity Urine pH Ur Specific [place] Urine Protein Urine Glucose (UA) Urine Ketones Urine Occult Blood Urine Nitrite Urine Bilirubin Urine Urobilinogen Ur Leukocyte Esterase Urine RBC Urine WBC Ur Squamous Epith Cells Urine Bacteria Urine Mucus MRSA (PCR) POC Glucose Microbiology 06/16/17 10:00 Urine Catheter - Catheter Urine Culture - Preliminary Culture exhibits no growth. Clinical Impression(s) from Imaging Studies Chest X-Ray 06/16/17 05:43 IMPRESSION: Free soft interstitial prominence, slightly more left compared to right. Possible inflammatory process rather than asymmetric vascular congestion. Suspect underlying COPD component. Postsurgical changes as above. Electronically Signed: Suze Schuster MD at 6:48 EDT , Service support , Assessment/Plan Active and Suspected Problems NSTEMI (non-ST elevated myocardial infarction) (Acute) Influenza (Acute) Influenza A COPD with acute exacerbation (Acute) KARRIE (obstructive sleep apnea) (Suspected) RECOMMENDATIONS: 1. Continue scheduled aerosol treatments and steroids. At discharge, recommend prednisone taper over 12 days. 2. Cardiac catheterization plans for this morning 3. Continue Tamiflu as ordered 4. Wean supplemental oxygen as tolerated 5. Encourage incentive spirometer use 6. The patient can be offered a follow-up visit in the pulmonary medicine clinic upon discharge from the hospital. With strongly recommended the patient undergo a formal polysomnogram for evaluation of underlying obstructive sleep apnea. IMPRESSIONS: 1. Acute hypoxic respiratory insufficiency secondary to influenza A infection/Questionable COPD with exacerbation Continue aerosol treatments. Wean supplemental oxygen to maintain saturations at or above 90%. Continue prednisone 40 mg daily by mouth with plans to taper over the next 12 days. Continue Tamiflu as ordered. Strongly recommend outpatient pulmonary follow-up to that baseline PFTs can be obtained. 2. Non-ST elevation myocardial infarction/history of coronary artery disease status post CABG Continue Plavix as ordered. Cardiology is following. Tentative plans for cardiac catheterization this morning. 3. Personal history of VTE The patient is chronically anticoagulated on Coumadin. She also has an IVC filter in place. At the present time, the patient's Coumadin is on hold. Agree with initiation of Lovenox once the patient's INR is less than 2.0. 4. Morbid obesity/diabetes/hypertension/hyperlipidemia/sleep disordered breathing Complicates care, management, recovery and prognosis. Continue 2 L/min of supplemental oxygen nightly per home regimen. Ideally, the patient should undergo a polysomnogram for evaluation of obstructive sleep apnea. This note was generated with [employer] software. It may contain incorrect words, spelling, and punctuation that were not noted in checking the note before signing. Given the lack of ongoing ICU needs, will sign off. As above, the patient can be offered a follow-up office visit in the pulmonary medicine clinic upon discharge from the hospital. Please call with any additional questions. Code Visit Inpatient E&M: 19118 Subs Hosp L2
[2017-06-18] MEDS: Ipratropium/Albuterol Sulfate 3 ML AMPUL.NEB INHALATION ×3 (06:44→18:59)
[2017-06-18 07:05] LABS: Bedside Glucose 244 mg/dL (70-110)
[2017-06-18] MEDS: Carvedilol 6.25 MG Tablet PO ×2 (07:05→21:55)
--- NOTE | 2017-06-18 07:08 | PN_ITS ---
Patient Problems: Active and Suspected Problems NSTEMI (non-ST elevated myocardial infarction) (Acute) Influenza (Acute) Influenza A COPD with acute exacerbation (Acute) KARRIE (obstructive sleep apnea) (Suspected) Subjective: She continues to be afebrile. Blood pressures have come down somewhat they are still mildly increased with the increase in the Coreg to 6.25. INR today is 1.5 and patient will be scheduled for cardiac catheterization. All lab was personally reviewed. Hemoglobin is stable at 13. Platelets and white blood cell count are within normal limits. Serum bicarb is 39 today, up from 32 at admission. Fluid balance since admission is -7230. - Physical Exam General: Alert, Cooperative, - - very anxious Oral: Dry Mucosa Neck: Supple, No JVD, Trachea Midline Lungs: Clear to auscultation, No rhonchi, No wheeze, No rales Cardiovascular: Regular rate, Regular Rhythm, Normal S1, Normal S2, No rub noted , No Gallop Abdomen: Bowel Sounds Present, Soft, Non Tender, Non-Distended Extremities: Edema - + 1 pretibial edema - much improved Skin: No rashes, No breakdown Neurological: Cranial nerves II-XII grossly intact, Neuro grossly intact Vital Signs Temp Pulse Resp BP Pulse Ox 97.7 F L 71 26 H 145/66 H 93 06/18/17 06:00 06/18/17 06:00 06/18/17 06:00 06/18/17 06:00 06/18/17 06:00 Oxygen Flow Rate (L/min) 2 Oxygen Delivery Method Nasal Cannula Weight: 244 lb 7.882 oz Body Mass Index (BMI) 40.8 Intake and Output for Last 24 Hours 06/16/17 06/17/17 06/18/17 23:59 23:59 23:59 Intake Total 650 / 650 1635 / 1635 60 / 60 Output Total 5775 / 5775 3150 / 3150 650 / 650 Balance -5125 / -5125 -1515 / -1515 -590 / -590 Microbiology Past 72 Hours 06/16/17 10:00 Urine Culture - Preliminary Urine Catheter - Catheter Culture exhibits no growth. Laboratory Tests Past 24 Hrs 06/17/17 06/18/17 06/18/17 15:00 04:00 04:00 WBC RBC Hgb Hct MCV MCH MCHC RDW RDW Differential Plt Count MPV Immature Gran % (Auto) Neut % (Auto) Lymph % (Auto) [place] % (Auto) Eos % (Auto) Baso % (Auto) Absolute Neuts (auto) Absolute Lymphs (auto) Total Counted PT 30.5 H 18.5 H INR 2.9 1.5 APTT 30.3 Sodium 136 Potassium 3.9 Chloride 92 L Carbon Dioxide 39.0 H Anion Gap 5 BUN 41 H Creatinine 0.98 Estim Creat Clear Calc 50.00 Est GFR (MDRD) Af Amer 72 Est GFR (MDRD) Non-Af 59 L BUN/Creatinine Ratio 41.7 H Glucose 237 H Calcium 8.9 06/18/17 04:00 WBC 6.6 RBC 4.65 Hgb 13.0 Hct 41.8 MCV 89.9 MCH 28.0 MCHC 31.1 L RDW 14.3 RDW Differential 46.7 H Plt Count 153 MPV 9.4 Immature Gran % (Auto) 0.200 Neut % (Auto) 78.6 H Lymph % (Auto) 14.0 L [place] % (Auto) 7.0 Eos % (Auto) 0.0 Baso % (Auto) 0.2 Absolute Neuts (auto) 5.2 Absolute Lymphs (auto) 0.92 Total Counted Not Reportable PT INR APTT Sodium Potassium Chloride Carbon Dioxide Anion Gap BUN Creatinine Estim Creat Clear Calc Est GFR (MDRD) Af Amer Est GFR (MDRD) Non-Af BUN/Creatinine Ratio Glucose Calcium POC Glucose 06/17/17 06/17/17 06/17/17 21:25 16:53 11:26 POC Glucose 295 H 371 H 322 H 06/17/17 06:44 POC Glucose 250 H Medical Necessity - Tobacco Use Smoking Status: Never smoker Tobacco Use: Non-smoker Assessment/Plan Active and Suspected Problems NSTEMI (non-ST elevated myocardial infarction) (Acute) Influenza (Acute) Influenza A COPD with acute exacerbation (Acute) KARRIE (obstructive sleep apnea) (Suspected) Impressions 1. non-STEMI 2. influenza A 3. Acute exacerbation COPD 4. Drug reaction with Allergic dermatitis 5. CAD 6. CABG in 2011 7. DM II 8. HTN 9. HLD 10. Morbid obesity 11. suspected sleep apnea - wear O2 at 2 LPM at night only 12. Chronic anticoagulation with warfarin 13. 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 Status post PIOTR/BSO- for cervical cancer 16. Suspected sleep apnea - has never been tested but, she wears oxygen at night 17. Acute CHF due to ischemic/NSTEMI 18. Acute metabolic encephalopathy due to infection, CHF 19. S/P PTCA of the mid RCA and the proximal RCA and Mynx closure of the RFA Maintain in the ICU overnight continue the current meds. Given 0.5 mg of Ativan prior to the cath for severe anxiety She has an IVC filter.....hold Warfarin for a few days due to R groin puncture, size and increased risk for bleeding. sleep study as an OP Code Visit Inpatient E&M: 56124 Subs Hosp L3
--- NOTE | 2017-06-18 08:00 | NURSING ---
Patient left unit to go to [facility] lab technician for heart cath
[2017-06-18] MEDS: DiphenhydrAMINE 25 MG Capsule 50 MG PO (08:04)
--- NOTE | 2017-06-18 09:58 | CL.I_ITS ---
Patient Name: FRANCISCA ROY Study Date: 06/18/2017 Performing: Boone Wang MD Ht: 66 inches 168 cm : 1945 Wt: 247.2 lbs 112 kg Age: 71 Gender: female BSA: 2.19 PROCEDURE(S) PERFORMED KS35-ASF W OR WO PTCA, SINGLE CORONARY ARTERY [id number]/COR/LV/CABG CLINICAL PROFILE AND CO-MORBIDITIES INDICATIONS: Unstable Angina Stress/Imaging Stress/Image Study Performed: No Angina Classification Anginal Classification w/in 2 Weeks: CCS IV CAD Presentations: Non-STEMI. Symptom onset Date/Time: 06/16/2017 Time Not Available Comorbidities/Risk Factors: Hypertension Dyslipidemia Prior CABG Diabetes Mellitus: Diabetes Therapy: Insulin CONCLUSIONS Triple vessel CAD of the LAD, LCX and RCA. Segmented LV systolic dysfunction- Mild Successful PTCA/SANDOR of the of mid RCA with a 3.0 x 28 Promus Synergy, post dilated with a 3.5 x 12 NC balloon; 85%-->0%, no dissection. Successful PTCA/SANDOR of the proximal RCA with a 3.5 x 32 Promus Synergy, post dilated with a 3.5 x 12 NC Balloon; 75%-->0%, no dissection. Successful Mynx closure of RFA. RECOMMENDATIONS Referred for immediate PCI Highly recommend quitting all tobacco products Follow up with primary chemistry professor Risk factor modification ASA Indefinitley Plavix for at least 12 months Routine post interventional care Refer for Outpatient Cardiac Rehab Manual sheath removal per protocol Follow up with Dr. Wang per pt's request. DESCRIPTION OF PROCEDURE The patient arrived to the procedure lab. The risks and benefits of the procedure as well as a full d escription of our services here and lack of surgical backup were fully explained to the patient and/o r their significant other prior to the catheterization. The Timeout was completed, verifying the emani ect patient and procedure. The patient's procedural site was prepped and draped in the usual fashion. Local anesthetic was given subcutaneously to right groin region with Lidocaine 2%. Using a modified Seldinger technique, arterial access was obtained via the right femoral artery, a 4Fr sheath was inse rted. Left Coronary Artery selective angiography was performed in multiple views using a 4 Fr. JL5 c atheter. Right Coronary Artery selective angiography was then performed in multiple views using a 4 F r. 3DRC catheter. Saphenous Vein graft to the Circumflex selective angiography was performed in multi ple views using a 4 Fr. 3DRC catheter. Left internal mammary artery graft to the LAD selective angiog terese was performed in multiple views using a 4 Fr. 3DRC catheter. Left Ventriculography was performe d in FLORES projection using a 4 Fr. Pigtail catheter. LV to AO pullback pressures were then recordedThe images were reviewed and options discussed. A decision was then made to proceed with an Intervention , IVUS or other adjunct procedure. Arterial sheath was exchanged for a 6 Fr Sheath hs 2 with sh Guide catheter was inserted and engaged into the RCA. Angiogram performed pre balloon dilatation. bmw Guide wire was advanced to the RCA. moses rge 2.00 x 12 Balloon catheter was advanced across lesion in the right coronary, distal. PTCA balloon inflated at 8 atms for 10 secs Balloon catheter was advanced across lesion in the right coronary, pr oximal. PTCA balloon inflated at 10 atms for 13 secs Angiogram performed post balloon dilatation. 2.5 x 12 Balloon catheter was advanced across lesion in the right coronary, mid PTCA balloon inflated at 8 atms for 9 secs PTCA balloon inflated at 12 atms for 11 secs synergy 3.00 x 28 Drug Eluting stent was advanced across the lesion in the right coronary, mid. Angiogram performed post stent deployment. synergy 3.5 x 32 Drug Eluting stent was advanced across the lesion in the right coronary, proximal. Angiogram performed post stent deployment. nc emerge 3.5 x 12 Balloon catheter was advanced across le yamil in the right coronary, mid. Balloon catheter was advanced across lesion in the right coronary, p roximal. Angiogram performed post stent deployment.. . The arterial sheath was pulled and a Mynx yu sure device was deployed for hemostasis. CORONARY ANGIOGRAPHY DOMINANCE: Right Dominant LEFT HEART ASSESSMENT Left Ventricular Ejection Fraction: by LV Gram 50-55 % Normal Left Ventricular End Diastolic Pressure Depressed Left Ventricular systolic function Inferior Mid Hypokinesis - Mild LEFT MAIN: No significant disease noted LEFT ANTERIOR DECENDING ARTERY: MID LAD: is occluded DIAGONAL 1: Proximal - Mild luminal irregularities less than 30% CIRCUMFLEX ARTERY: PROX CIRC: is occluded RIGHT CORONARY ARTERY: PROX RCA: 75 % Stenosis MID RCA: 85 % Stenosis RT PDA: Proximal - No significant disease noted GRAFTS: SUERO graft to the LAD is patent Saphenous Vein graft to the 1st OM is patent COLLATERAL FLOW: Collateral flow from Right to Left INTERVENTION INFORMATION LESION SITE: RCA (Mid) Lesion Complexity: High/C, lesion at bifurcation: Yes, thrombus present: No, lesion length: 28 mm, cu lprit lesion: Yes Pre Stenosis: 85 % Pre intervention JOE flow: 3 PROCEDURE: Drug Eluting Stent with pre and post dilatation Post Stenosis: 0 % Post intervention JOE flow: 3 Lesion Devices: Mahamed Sci EMERGE MR 2.00x12 BALLOON Medtronic 6 Fr HSII SH 100cm Guide Catheter Jeronimo .014 [employer] [place] Straight 190cm Mahamed Sci NC EMERGE MR 3.50x12 BALLOON LESION SITE: RCA (Proximal) Lesion Complexity: High/C, lesion at bifurcation: No, thrombus present: No, lesion length: 32 mm, cul prit lesion: No Pre Stenosis: 75 % Pre intervention JOE flow: 3 PROCEDURE: Drug Eluting Stent with pre and post dilatation Post Stenosis: 0 % Post intervention JOE flow: 3 Lesion Devices: Mahamed Sci EMERGE MR 2.00x12 BALLOON Medtronic 6 Fr HSII SH 100cm Guide Catheter Jeronimo .014 [employer] [place] Straight 190cm Mahamed Sci Synergy MR SANDOR 3.00x28 Mahamed Sci EMERGE MR 2.50x12 BALLOON Mahamed Sci NC EMERGE MR 3.50x12 BALLOON Mahamed Sci Synergy MR SANDOR 3.50x32 COMPLICATIONS No Complications PROCEDURE MEDICATIONS Versed 1 mg IV Versed 1 mg IV Oxygen: 2 L/min via nasal cannula Heparin 6000 unit(s) IV 06/18/2017 08:57:45 Nitro 200 mcg IC 06/18/2017 08:59:48 SUMMARY OF HEMODYNAMIC DATA Time AIR REST ECG 08:29:26 AO 140/68 (99) SA 08:45:49 LV 128/-5, 5 08:53:38 LVp 127/-7, 2 08:53:44 AOp 127/43 (74) 08:53:49 Signed By Boone Wang MD On 06/18/2017 09:56:32 Boone Wang MD
--- NOTE | 2017-06-18 10:05 | EKG12_ITS ---
Test Reason : MORNING EKG Blood Pressure : / mmHG Vent. Rate : 075 BPM Atrial Rate : 075 BPM P-R Int : 314 ms QRS Dur : 090 ms QT Int : 414 ms P-R-T Axes : 078 036 -37 degrees QTc Int : 462 ms Sinus rhythm with 1st degree A-V block T wave abnormality, consider inferior ischemia T wave abnormality, consider anterior ischemia Abnormal ECG When compared with ECG of 17-JUN-2017 05:36, MANUAL COMPARISON REQUIRED, DATA IS UNCONFIRMED Confirmed by SOUTH PENDLETON ([id number]), graphics editor WILLIAM LNUSFORD ([id number]) on 06/21/2017 2:36:36 PM Referred By: MALISSA Confirmed By:SOUTH PENDLETON
[2017-06-18 10:26] LABS: Hematocrit 39.8 % (37-47); Hemoglobin 12.2 g/dl (12.0-15.0); Mean Corp Hgb Conc 30.7 g/gl (32-36); Mean Corpuscular Hgb 27.5 pg (27.0-32.0); Mean Corpuscular Volume 89.8 fL (81-99); Platelet Count 158 K/mm3 (150-450); RBC Distribution Width CV 14.2 % (11.6-14.6); RBC Distribution Width SD 46.1 fl (35.1-43.9); Red Blood Count 4.43 M/mm3 (4.2-5.4); Scan Indicated on CBC? Y/N NO; White Blood Count 6.9 K/mm3 (4.4-11.0)
[2017-06-18 10:38] LABS: CPK Total, Creatine Kinase 15 U/L (26-192)
[2017-06-18] MEDS: 0.9% Normal Saline 1,000 ML 150 ML IV (10:54)
--- NOTE | 2017-06-18 11:28 | CRPHASE1 ---
Patient Data/Charges Pigment Weigher:: Boone Wang Phase I Charge:: Level I - Education Risk Factors/Lifestyle Smoking Status: Never smoker Hx Hypertension: Yes - on meds Hx Diabetes Mellitus Type 2: Yes - on meds Hx Dyslipidemia: Yes Hx Obesity: Yes Height: 1.68 m Weight:: 110.677 kg BMI: 39.4 Post-Menopausal: Yes Caffeine: Yes Risk Factor for Sedentary Lifestyle: Highest Risk Family History: COPD, Diabetes, DVT, High Cholesterol, Heart Disease, Hypertension, Pulmonary Disease Past Cardiac Illness: Coronary Artery Disease, Coronary Artery Bypass Graft Laboratory Values: Cardiac Rehab Phase I Labs Triglycerides 58 mg/dL (-199) 06/17/17 04:00 Cholesterol 72 mg/dL (200) 06/17/17 04:00 LDL Cholesterol 11 mg/dL (0-130) 06/17/17 04:00 HDL Cholesterol 49 mg/dL (40-) 06/17/17 04:00 Phase I Education Given On:: [place], Nutrition, CHF, Smoking cessation, Diabetes - Type II Issues Affecting Care:: None Knowledge of Condition:: Yes Hospital Course Cardiac Cath Date:: 06/18/17 Medical/Surgical History CAD:: Yes Pulmonary:: Yes COPD:: Yes KARRIE:: Yes Diabetes Type II:: Yes Hypertension:: Yes Dyslipidemia:: Yes Arthritis:: Yes - mobility limited Cancer:: Yes CABG: Yes
--- NOTE | 2017-06-18 11:33 | CRPH1.INSTRU ---
General Education CAD and cardiac anatomy and function:: Patient communicates acknowledgment Explanation of diagnoses and procedures:: Patient communicates acknowledgment Sign/Symptoms of [place]:: Patient communicates acknowledgment Antiplatelet therapy: Patient communicates acknowledgment Proper use of NTG-SL: Patient communicates acknowledgment Emergency procedures and activation of EMS: Patient communicates acknowledgment Compliance of all prescribed medications: Patient communicates acknowledgment Smoking Patient Nicotine/Smoking Risk Factors Are:: Never smoked Dyslipidemia Patient Dyslipidemia Risk Factors Are:: Total Cholesterol - 72, Triglycerides - 58, HDL - 49, LDL - 11 Recommendations Include:: Lipid profile provided Dyslipidemia Response Code:: Patient communicates acknowledgment Overweight/Obesity Patient Overweight/Obesity Risk Factors Are:: BMI Normal [18-25 & < 65 years old] Recommendations Include:: Weight loss of 5-10%, Reduced calorie diet, Exercise 5-7 times/week Overweight/Obesity:: Patient communicates acknowledgment Hypertension Recommendations Include:: Maintain BP <130/85, BP <130/80 if diabetic, DASH dietary guidelines, Decrease/maintain normal body weight, Moderation of ETOH Hypertension:: Patient communicates acknowledgment Heart Disease Patient Heart Disease Risk Factors Are:: Family history of heart disease < 65 years old, Previous cardiac event Heart Disease Response Code:: Patient communicates acknowledgment Diabetes Patient Diabetes Risk Factors Are:: Elevated blood sugars Recommendations Include:: Maintain fasting blood sugars 70-110 md/dL Diabetes:: Patient communicates acknowledgment Metabolic Syndrome Patient Metabolic Syndrome Risk Factors Are [3 of 5]:: Fasting blood sugar > 100 mg/dL, Waist circumference > 35 [female] or 40 [male], High triglyceride >150, Hypertension Recommendations Include:: Patient is diabetic Metabolic Syndrome Response Code:: Patient communicates acknowledgment Sedentary Patient Sedentary Risk Factors Are:: Lack of regular exercise - limited mobility Stress Recommendations Include:: Identification of stressors, and assessment of coping skills
--- NOTE | 2017-06-18 11:36 | CRPH1.INST_ITS ---
General Education CAD and cardiac anatomy and function:: Patient communicates acknowledgment Explanation of diagnoses and procedures:: Patient communicates acknowledgment Sign/Symptoms of MA:: Patient communicates acknowledgment Antiplatelet therapy: Patient communicates acknowledgment Proper use of NTG-SL: Patient communicates acknowledgment Emergency procedures and activation of EMS: Patient communicates acknowledgment Compliance of all prescribed medications: Patient communicates acknowledgment Smoking Patient Nicotine/Smoking Risk Factors Are:: Never smoked Dyslipidemia Patient Dyslipidemia Risk Factors Are:: Total Cholesterol - 72, Triglycerides - 58, HDL - 49, LDL - 11 Recommendations Include:: Lipid profile provided Dyslipidemia Response Code:: Patient communicates acknowledgment Overweight/Obesity Patient Overweight/Obesity Risk Factors Are:: BMI Normal [18-25 & < 65 years old ] Recommendations Include:: Weight loss of 5-10%, Reduced calorie diet, Exercise 5 -7 times/week Overweight/Obesity:: Patient communicates acknowledgment Hypertension Recommendations Include:: Maintain BP <130/85, BP <130/80 if diabetic, DASH dietary guidelines, Decrease/maintain normal body weight, Moderation of ETOH Hypertension:: Patient communicates acknowledgment Heart Disease Patient Heart Disease Risk Factors Are:: Family history of heart disease < 65 years old, Previous cardiac event Heart Disease Response Code:: Patient communicates acknowledgment Diabetes Patient Diabetes Risk Factors Are:: Elevated blood sugars Recommendations Include:: Maintain fasting blood sugars 70-110 md/dL Diabetes:: Patient communicates acknowledgment Metabolic Syndrome Patient Metabolic Syndrome Risk Factors Are [3 of 5]:: Fasting blood sugar > 100 mg/dL, Waist circumference > 35 [female] or 40 [male], High triglyceride > 150, Hypertension Recommendations Include:: Patient is diabetic Metabolic Syndrome Response Code:: Patient communicates acknowledgment Sedentary Patient Sedentary Risk Factors Are:: Lack of regular exercise - limited mobility Stress Recommendations Include:: Identification of stressors, and assessment of coping skills
[2017-06-18] MEDS: guaiFENesin 1,200 MG Tablet 1200 MG PO ×2 (12:52→22:22)
[2017-06-18] MEDS: Psyllium 1 PACKET PO (12:52)
[2017-06-18] MEDS: Furosemide 40 MG Tablet PO (12:52)
[2017-06-18] MEDS: Oseltamivir Phosphate 30 MG Capsule PO ×2 (12:53→22:23)
[2017-06-18 12:56] LABS: Bedside Glucose 223 mg/dL (70-110)
--- NOTE | 2017-06-18 13:03 | PCM.PN.BLA ---
Progress Note Pt. is scheduled for a Cardiovascular office follow-up with the [facility] on July 12, 2017 at 11:00 AM. This appointment is with Joaquin Martínez Nurse Practitioner. She will follow-up with Dr. Wang going forward.
[2017-06-18 16:35] LABS: Hematocrit 40.5 % (37-47); Hemoglobin 12.5 g/dl (12.0-15.0); Mean Corp Hgb Conc 30.9 g/gl (32-36); Mean Corpuscular Volume 90.6 fL (81-99); Mean Platelet Vol. 9.6 fl (6.2-12.0); Platelet Count 134 K/mm3 (150-450); RBC Distribution Width CV 14.3 % (11.6-14.6); RBC Distribution Width SD 46.9 fl (35.1-43.9); Red Blood Count 4.47 M/mm3 (4.2-5.4); Scan Indicated on CBC? Y/N NO; White Blood Count 9.7 K/mm3 (4.4-11.0)
[2017-06-18 16:58] LABS: CPK Total, Creatine Kinase 23 U/L (26-192)
[2017-06-18 17:15] LABS: Bedside Glucose 304 mg/dL (70-110)
--- NOTE | 2017-06-18 20:48 | NURSING ---
Called and gave report to KAVITA Bates on PCU.
--- NOTE | 2017-06-18 20:53 | NURSING ---
Pt. being transferred via bed to PCU 121.
--- NOTE | 2017-06-18 20:56 | NURSING ---
Called pt's [id number] Jennifer to inform her that pt. is transferring to U 121.
[2017-06-18] MEDS: Atorvastatin Calcium 40 MG Tablet PO (21:55)
[2017-06-18 22:06] LABS: Bedside Glucose 346 mg/dL (70-110)
[2017-06-19] VITALS (17 sets, daily range): BP systolic 132–176; BP diastolic 60–76; PULSE 55–74; RESP 14–20; TEMP 36.3–36.7; O2SAT 92–96
[2017-06-19 02:56] LABS: Bedside Glucose 218 mg/dL (70-110)
[2017-06-19 04:48] LABS: Hematocrit 41.8 % (37-47); Hemoglobin 12.4 g/dl (12.0-15.0); Mean Corp Hgb Conc 29.7 g/gl (32-36); Mean Corpuscular Hgb 27.1 pg (27.0-32.0); Mean Corpuscular Volume 91.5 fL (81-99); Mean Platelet Vol. 9.6 fl (6.2-12.0); Platelet Count 157 K/mm3 (150-450); RBC Distribution Width CV 14.3 % (11.6-14.6); Red Blood Count 4.57 M/mm3 (4.2-5.4); White Blood Count 7.9 K/mm3 (4.4-11.0)
[2017-06-19 04:50] LABS: Scan Indicated on CBC? Y/N NO
[2017-06-19 05:00] LABS: International Normalized Ratio 1.2; Prothrombin Time (Protime)PT. 15.6 SECONDS (11.7-14.9)
[2017-06-19 05:07] LABS: Anion Gap 4 (5-15); BUN 39 mg/dL (7-18); BUN/Creat Ratio 47.5 RATIO (10-20); Calcium,Total 8.6 mg/dL (8.5-10.1); Chloride 94 mmol/L (98-107); Creatinine, Serum 0.82 mg/dL (0.55-1.02); EST Glomerular Filtration Rate 73 mL/min (>60); Est Glom Filt Rate - Afr Amer 88 mL/min (>60); Estimated Creatinine Clearance 59.76 ml/min; Glucose 187 mg/dL (74-106); Potassium 4.3 mmol/L (3.5-5.1); Sodium Level 137 mmol/L (136-145)
[2017-06-19] MEDS: Nitroglycerin Oint 1 INCH PACKET TRANSDERM. ×2 (05:35→12:09)
--- NOTE | 2017-06-19 05:55 | EKG12_ITS ---
Test Reason : CP Blood Pressure : / mmHG Vent. Rate : 068 BPM Atrial Rate : 068 BPM P-R Int : 308 ms QRS Dur : 090 ms QT Int : 402 ms P-R-T Axes : 077 009 -30 degrees QTc Int : 427 ms Sinus rhythm with 1st degree A-V block T wave abnormality, consider inferior ischemia Abnormal ECG Confirmed by MARTHA BABIN, DEVENDRA ([id number]), loan expeditor WILLIAM LUNSFORD ([id number]) on 06/25/2017 2:50:48 PM Referred By: Confirmed By:DEVENDRA THOMAS MD
[2017-06-19 07:41] LABS: Bedside Glucose 196 mg/dL (70-110)
[2017-06-19] MEDS: Ipratropium/Albuterol Sulfate 3 ML AMPUL.NEB INHALATION ×3 (07:51→19:08)
[2017-06-19] MEDS: Carvedilol 6.25 MG Tablet PO (08:59)
[2017-06-19] MEDS: guaiFENesin 1,200 MG Tablet 1200 MG PO (09:00)
[2017-06-19] MEDS: Aspirin E.C. 81 MG Tablet PO (09:00)
[2017-06-19] MEDS: Psyllium 1 PACKET PO (09:00)
[2017-06-19] MEDS: Furosemide 40 MG Tablet PO (09:00)
[2017-06-19] MEDS: Clopidogrel Bisulfate 75 MG Tablet PO (09:00)
[2017-06-19] MEDS: Losartan Potassium 25 MG Tablet PO ×2 (09:01→14:21)
[2017-06-19] MEDS: Oseltamivir Phosphate 30 MG Capsule PO ×2 (09:01→21:23)
--- NOTE | 2017-06-19 09:58 | PN.CARD_ITS ---
Subjectve: Patient doing well this morning, no 24 hour events. Telemetry shows normal sinus rhythm with occasional type I second-degree AV block. EKG this morning shows normal sinus rhythm with first-degree AV block, no acute changes. There is resolving inferior T-wave inversion. She is status post angioplasty and drug -eluting stents ?2 to the RCA yesterday. Her CKs are negative thus far. Her hemoglobin and creatinine have remained stable. Objective: Vital Signs Temp Pulse Resp BP Pulse Ox 98 F 67 18 148/65 H 94 06/19/17 03:29 06/19/17 07:54 06/19/17 07:54 06/19/17 05:35 06/19/17 07:54 Oxygen Flow Rate (L/min) 3 Oxygen Delivery Method Nasal Cannula Weight: 243 lb 13.3 oz Body Mass Index (BMI) 40.8 Intake and Output for Last 24 Hours 06/17/17 06/18/17 06/19/17 23:59 23:59 23:59 Intake Total 1635 / 1635 1697 / 1697 120 / 120 Output Total 3150 / 3150 3050 / 3050 350 / 350 Balance -1515 / -1515 -1353 / -1353 -230 / -230 General: Awake, Alert, Oriented x 3 HEENT: PERRL, EOMI, Sclera Non Icteric Neck: Supple, Good ROM, No Lymph Node Enlargement Lungs: Clear to auscultation Cardiovascular: Regular Rhythm, Normal S1, Normal S2, No Murmurs, No Rubs, No Gallops Vascular: No Carotid Bruits, Normal Femoral Pulses, Normal Radial Pulses, Normal Dorsalis Pedal Pulse, Normal Posterior Tibial Pulses Abdomen: Bowel Sounds Present, Soft, Non Tender, No HSM, No Organomegaly Extremities: No Cyanosis, No Clubbing, No edema Neurological: No Focal Motor or Sensory Deficit 06/18/17 10:10: WBC 6.9, RBC 4.43, Hgb 12.2, Hct 39.8, MCV 89.8, MCH 27.5, MCHC 30.7 L, RDW 14.2, RDW Differential 46.1 H, Plt Count 158, MPV 9.0 06/18/17 16:20: WBC 9.7, RBC 4.47, Hgb 12.5, Hct 40.5, MCV 90.6, MCH 28.0, MCHC 30.9 L, RDW 14.3, RDW Differential 46.9 H, Plt Count 134 L, MPV 9.6 06/19/17 04:25: PT 15.6 H, INR 1.2 06/19/17 04:25: WBC 7.9, RBC 4.57, Hgb 12.4, Hct 41.8, MCV 91.5, MCH 27.1, MCHC 29.7 L, RDW 14.3, RDW Differential 48.0 H, Plt Count 157, MPV 9.6 06/19/17 04:25: Sodium 137, Potassium 4.3, Chloride 94 L, Carbon Dioxide 39.0 H , Anion Gap 4 L, BUN 39 H, Creatinine 0.82, Est GFR (MDRD) Af Amer 88, Est GFR ( MDRD) Non-Af 73, BUN/Creatinine Ratio 47.5 H, Glucose 187 H, Calcium 8.6 Rhythm: EKG: Normal sinus rhythm with first-degree AV block, resolving inferior T-wave inversion. ECHO: Stress Test: Cardiac Cath: PCI: CT Surgery: Holter monitor: EPS: PPM: CXR: Chest CT Scan: Medical Necessity - Tobacco Use Smoking Status: Never smoker Tobacco Use: Non-smoker Assessment/Plan 1. Coronary artery disease: Patient presents with respiratory distress, wheezing, evidence of CHF by physical exam and chest x-ray, in the face of a adequately anticoagulated INR 3.1 and troponin I of 1.21. Troponin trending down now to 1.06, INR now 2.9 as of this afternoon. In addition she has new dynamic lateral ST segment changes with inferior T-wave inversion. Echocardiogram shows mild mid anterior hypokinesis but no significant lateral hypokinesis although the images are challenging. At this point would recommend continuing baby aspirin, continuing 75 mg a day. Patient underwent left heart catheterization yesterday which demonstrated widely patent SUERO to her LAD, saphenous vein graft to her obtuse marginal, severe occlusive disease of her LAD and left circumflex, and critical disease in her mid and proximal RCA which was not bypassed. The patient underwent angioplasty and drug-eluting stenting ?2 yesterday with an excellent result. At this point I would recommend continuing baby aspirin and Plavix going forward. Patient did very well with IV diuresis, and was on Lasix 20 mg daily at home. Recommend increasing Lasix to 40 mg p.o. daily at home. Patient may be discharged home today, and follow-up with either myself or Dr. Hameed. I called Dr. Hameed yesterday to give him report on the patient's condition and findings. 2. Congestive heart failure: Patient developed type I second-degree AV block with initiation of Coreg therapy. Will reduce Coreg therapy to 3.125 mg p.o. twice daily. The patient has had no syncopal events at home, and would not recommend pacemaker at this time. Recommend continuing losartan 25 mg's p.o. daily and titrating his up for afterload reduction and hypertension control. 3. Hyperlipidemia: Patient's LDL is 11 and HDL is 49. Patient may restart her rosuvastatin at home. 4. DVT: The patient has a history of DVT and has a Simone filter. She was on chronic Coumadin therapy prior to arrival. Recommend reinitiation of Coumadin therapy in 3 days time to allow her groin to heal. 5. Thank you very much for the opportunity to participate in the cardiac care of your patient. Patient may be discharged home today. Code Visit Inpatient E&M: [id number] Subs Hosp L2
[2017-06-19 10:48] LABS: Hemoglobin 12.7 g/dl (12.0-15.0); Mean Corpuscular Hgb 28.3 pg (27.0-32.0); Mean Corpuscular Volume 91.3 fL (81-99); Mean Platelet Vol. 9.5 fl (6.2-12.0); Platelet Count 157 K/mm3 (150-450); RBC Distribution Width CV 14.1 % (11.6-14.6); RBC Distribution Width SD 46.6 fl (35.1-43.9); Red Blood Count 4.49 M/mm3 (4.2-5.4); White Blood Count 9.5 K/mm3 (4.4-11.0)
[2017-06-19 10:50] LABS: Scan Indicated on CBC? Y/N NO
[2017-06-19 12:25] LABS: Bedside Glucose 200 mg/dL (70-110)
--- NOTE | 2017-06-19 12:39 | PCM.PROGNOTE ---
Patient Problems: Active and Suspected Problems NSTEMI (non-ST elevated myocardial infarction) (Acute) Influenza (Acute) Influenza A COPD with acute exacerbation (Acute) KARRIE (obstructive sleep apnea) (Suspected) Subjective: Afebrile since admission. Pressures remained mildly elevated. She still has an oxygen requirement and is currently 92% on a 2.5 L nasal cannula. Fluid balance since admission is -8023. CBC is within normal limits today BMP shows an elevated CO2 of 39 which is likely secondary to contraction alkalosis from diuretics. BUN is 39 and the creatinine is 0.82. Fasting blood sugar today is 196 and the blood sugar at noon was 200. She was seen by Dr. Wang today and cardiac rehab and she has been cleared for discharge from a cardiac standpoint. Unfortunately she has not really ambulated since admission and she is still requiring 2-1/2 L of oxygen to keep her at 92%. She is very alert today. She is wanting to get out of bed. She is C/O constipation. She denies chest pain, shortness of breath. She does have a dry cough which persists. she is also having mild lightheadedness - Physical Exam General: Alert, Oriented x3, Cooperative, No apparent distress, Well developed, Well nourished HEENT: Atraumatic, PERRLA, EOMI Oral: No Gingival or Mucosal Lesions/ Ulcerations, Dry Mucosa Neck: No JVD, Trachea Midline Lungs: Clear to auscultation, Wheezes Cardiovascular: Regular rate, Regular Rhythm, Normal S1, Normal S2, No Gallop, - - EKG shows second-degree AV block type I with the increase in the Coreg so will maintain the dose at 3.125 mg daily Abdomen: Bowel Sounds Present, Soft, Non Tender, Non-Distended Extremities: No clubbing, No cyanosis, No edema Neurological: Cranial nerves II-XII grossly intact, Neuro grossly intact Psych/Mental Status: Normal Affect, Appropriate Vital Signs Temp Pulse Resp BP Pulse Ox 97.6 F L 67 20 H 143/66 H 92 06/19/17 09:00 06/19/17 11:06 06/19/17 09:00 06/19/17 12:09 06/19/17 09:00 Oxygen Flow Rate (L/min) 2.5 Oxygen Delivery Method Nasal Cannula Weight: 243 lb 13.3 oz Body Mass Index (BMI) 40.8 Intake and Output for Last 24 Hours 06/17/17 06/18/17 06/19/17 23:59 23:59 23:59 Intake Total 1635 / 1635 1697 / 1697 620 / 620 Output Total 3150 / 3150 3050 / 3050 650 / 650 Balance -1515 / -1515 -1353 / -1353 -30 / -30 Microbiology Past 72 Hours 06/16/17 13:15 Blood Culture - Preliminary Blood Culture (Wb) - Line Draw No growth in 48 hours. 06/16/17 10:00 Urine Culture - Final Urine Catheter - Catheter Culture exhibits no growth. Laboratory Tests Past 24 Hrs 06/18/17 06/18/17 06/19/17 16:20 16:20 04:25 WBC 9.7 RBC 4.47 Hgb 12.5 Hct 40.5 MCV 90.6 MCH 28.0 MCHC 30.9 L RDW 14.3 RDW Differential 46.9 H Plt Count 134 L MPV 9.6 PT 15.6 H INR 1.2 Sodium Potassium Chloride Carbon Dioxide Anion Gap BUN Creatinine Estim Creat Clear Calc Est GFR (MDRD) Af Amer Est GFR (MDRD) Non-Af BUN/Creatinine Ratio Glucose Calcium Total Creatine Kinase 23 L 06/19/17 06/19/17 06/19/17 04:25 04:25 10:20 WBC 7.9 9.5 RBC 4.57 4.49 Hgb 12.4 12.7 Hct 41.8 41.0 MCV 91.5 91.3 MCH 27.1 28.3 MCHC 29.7 L 31.0 L RDW 14.3 14.1 RDW Differential 48.0 H 46.6 H Plt Count 157 157 MPV 9.6 9.5 PT INR Sodium 137 Potassium 4.3 Chloride 94 L Carbon Dioxide 39.0 H Anion Gap 4 L BUN 39 H Creatinine 0.82 Estim Creat Clear Calc 59.76 Est GFR (MDRD) Af Amer 88 Est GFR (MDRD) Non-Af 73 BUN/Creatinine Ratio 47.5 H Glucose 187 H Calcium 8.6 Total Creatine Kinase POC Glucose 06/19/17 06/19/17 06/19/17 12:05 06:51 02:48 POC Glucose 200 H 196 H 218 H 03/16/18 03/16/18 03/16/18 21:45 17:07 12:50 POC Glucose 346 H 304 H 223 H Medical Necessity - Tobacco Use Smoking Status: Never smoker Tobacco Use: Non-smoker Assessment/Plan Active and Suspected Problems NSTEMI (non-ST elevated myocardial infarction) (Acute) Influenza (Acute) Influenza A COPD with acute exacerbation (Acute) KARRIE (obstructive sleep apnea) (Suspected) Impressions 1. non-STEMI 2. influenza A 3. Acute exacerbation COPD 4. Drug reaction with Allergic dermatitis 5. CAD 6. CABG in 2011 7. DM II 8. HTN 9. HLD 10. Morbid obesity 11. suspected sleep apnea - wear O2 at 2 LPM at night only 12. Chronic anticoagulation with warfarin 13. 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 Status post PIOTR/BSO- for cervical cancer 16. Suspected sleep apnea - has never been tested but, she wears oxygen at night 17. Acute CHF due to ischemic/NSTEMI 18. Acute metabolic encephalopathy due to infection, CHF 19. S/P PTCA of the mid RCA and the proximal RCA and Mynx closure of the RFA 20. Second-degree type II AV block - coreg decreased to 3.[address] Wang. Continue the current care. continue to monitor with the decrease in the coreg.....if she continues to have Type II second degree AVB will possible need a PM She will need to follow up with pulmonary as an OP for PFT's and PSG Order PT and OT Code Visit Inpatient E&M: [id number] [facility] Hosp L2
--- NOTE | 2017-06-19 13:35 | CASEMGMT ---
SW was told that physician spoke with patient and she agreed to go to SNF. Her first choice was TCU and second was [facility]. SW met with patient and she asked why she cannot go stay with her sister who lives right behind [facility]. SW told her that may be a possibility, but we need to see how she does with therapy. CHRISSIE told her SW will follow up with her on Wednesday. She again said she would much rather go and stay with her sister for awhile. Gabbi VILLALTA MSW
[2017-06-19] MEDS: 0.9% NaCl Peripheral Flush Adult/Peds IV (14:18)
[2017-06-19] MEDS: Magnesium Hydroxide 30 ML UDC 60 ML PO (14:20)
[2017-06-19 16:40] LABS: Bedside Glucose 334 mg/dL (70-110)
[2017-06-19] MEDS: Atorvastatin Calcium 40 MG Tablet PO (21:53)
[2017-06-19] MEDS: Carvedilol 3.125 MG TABLET PO (21:53)
[2017-06-19 22:00] LABS: Bedside Glucose 315 mg/dL (70-110)
[2017-06-20] VITALS (17 sets, daily range): BP systolic 95–146; BP diastolic 51–67; PULSE 39–75; RESP 16–22; TEMP 36.4–36.8; O2SAT 92–96
[2017-06-20 03:46] LABS: Bedside Glucose 275 mg/dL (70-110)
--- NOTE | 2017-06-20 05:55 | EKG12_ITS ---
Test Reason : AM EKG Blood Pressure : / mmHG Vent. Rate : 065 BPM Atrial Rate : 065 BPM P-R Int : 326 ms QRS Dur : 088 ms QT Int : 412 ms P-R-T Axes : 085 001 -30 degrees QTc Int : 428 ms Sinus rhythm with 1st degree A-V block T wave abnormality, consider inferior ischemia Abnormal ECG When compared with ECG of 18-JUN-2017 09:59, MANUAL COMPARISON REQUIRED, DATA IS UNCONFIRMED Confirmed by SOUTH PENDLETON ([id number]), editorial specialist WILLIAM LUNSFORD ([id number]) on 06/24/2017 3:06:53 PM Referred By: MALISSA Confirmed By:SOUTH PENDLETON
[2017-06-20] MEDS: Acetaminophen 325 MG Tablet 650 MG PO (06:45)
[2017-06-20 07:01] LABS: Bedside Glucose 291 mg/dL (70-110)
[2017-06-20] MEDS: Ipratropium/Albuterol Sulfate 3 ML AMPUL.NEB INHALATION ×3 (07:36→18:59)
[2017-06-20 07:49] LABS: International Normalized Ratio 1.1; Prothrombin Time (Protime)PT. 14.1 SECONDS (11.7-14.9)
[2017-06-20 08:04] LABS: Anion Gap 5 (5-15); BUN 35 mg/dL (7-18); BUN/Creat Ratio 44.9 RATIO (10-20); Calcium,Total 8.8 mg/dL (8.5-10.1); Chloride 93 mmol/L (98-107); Creatinine, Serum 0.78 mg/dL (0.55-1.02); EST Glomerular Filtration Rate 78 mL/min (>60); Est Glom Filt Rate - Afr Amer 94 mL/min (>60); Glucose 289 mg/dL (74-106); Magnesium 2.2 mg/dL (1.6-2.6); Potassium 4.8 mmol/L (3.5-5.1); Sodium Level 134 mmol/L (136-145)
[2017-06-20] MEDS: Oseltamivir Phosphate 30 MG Capsule PO ×2 (08:20→21:14)
[2017-06-20] MEDS: Psyllium 1 PACKET PO (08:20)
[2017-06-20] MEDS: Carvedilol 3.125 MG TABLET PO (08:21)
[2017-06-20] MEDS: Aspirin E.C. 81 MG Tablet PO (08:21)
[2017-06-20] MEDS: Losartan Potassium 50 MG Tablet PO (08:21)
[2017-06-20] MEDS: Clopidogrel Bisulfate 75 MG Tablet PO (08:21)
[2017-06-20] MEDS: Isosorbide Mononitrate 30 MG Tablet PO (08:21)
[2017-06-20] MEDS: Magnesium Hydroxide 30 ML UDC PO (08:29)
[2017-06-20] MEDS: guaiFENesin Dm 10 ML UDC PO (08:29)
--- NOTE | 2017-06-20 09:28 | PN.CARD_ITS ---
Subjectve: Patient's pulmonary status is markedly improved however her sugars still remain elevated. She denies any chest pain, angina and her lungs have no further wheezing. Telemetry shows normal sinus rhythm with type I second-degree AV block. Coreg decreased yesterday. Objective: Vital Signs Temp Pulse Resp BP Pulse Ox 98.0 F 63 18 130/63 H 92 06/20/17 08:20 06/20/17 08:20 06/20/17 08:20 06/20/17 08:20 06/20/17 08:20 Oxygen Flow Rate (L/min) 3 Oxygen Delivery Method Nasal Cannula Weight: 243 lb 13.3 oz Body Mass Index (BMI) 40.8 Intake and Output for Last 24 Hours 06/18/17 06/19/17 06/20/17 23:59 23:59 23:59 Intake Total 1697 / 1697 1440 / 1440 120 / 120 Output Total 3050 / 3050 1850 / 1850 900 / 900 Balance -1353 / -1353 -410 / -410 -780 / -780 General: Awake, Alert, Oriented x 3 HEENT: PERRL, EOMI, Sclera Non Icteric Neck: Supple, Good ROM, No Lymph Node Enlargement Lungs: Clear to auscultation Cardiovascular: Regular Rhythm, Normal S1, Normal S2, No Murmurs, No Rubs, No Gallops Vascular: No Carotid Bruits, Normal Femoral Pulses, Normal Radial Pulses, Normal Dorsalis Pedal Pulse, Normal Posterior Tibial Pulses Abdomen: Bowel Sounds Present, Soft, Non Tender, No HSM, No Organomegaly Extremities: No Cyanosis, No Clubbing, No edema Neurological: No Focal Motor or Sensory Deficit 06/19/17 10:20: WBC 9.5, RBC 4.49, Hgb 12.7, Hct 41.0, MCV 91.3, MCH 28.3, MCHC 31.0 L, RDW 14.1, RDW Differential 46.6 H, Plt Count 157, MPV 9.5 06/20/17 07:26: PT 14.1, INR 1.1 06/20/17 07:26: Sodium 134 L, Potassium 4.8, Chloride 93 L, Carbon Dioxide 36.0 H, Anion Gap 5, BUN 35 H, Creatinine 0.78, Est GFR (MDRD) Af Amer 94, Est GFR ( MDRD) Non-Af 78, BUN/Creatinine Ratio 44.9 H, Glucose 289 H, Calcium 8.8, Magnesium 2.2 Rhythm: EKG: ECHO: Stress Test: Cardiac Cath: PCI: CT Surgery: Holter monitor: EPS: PPM: CXR: Chest CT Scan: Medical Necessity - Tobacco Use Smoking Status: Never smoker Tobacco Use: Non-smoker Assessment/Plan 1. Coronary artery disease: Patient presents with respiratory distress, wheezing, evidence of CHF by physical exam and chest x-ray, in the face of a adequately anticoagulated INR 3.1 and troponin I of 1.21. Troponin trending down now to 1.06. In addition she had new dynamic lateral ST segment changes with inferior T-wave inversion. Echocardiogram shows mild mid anterior hypokinesis but no significant lateral hypokinesis although the images are challenging. At this point would recommend continuing baby aspirin, continuing 75 mg a day. Patient underwent left heart catheterization yesterday which demonstrated widely patent SUERO to her LAD, saphenous vein graft to her obtuse marginal, severe occlusive disease of her LAD and left circumflex, and critical disease in her mid and proximal RCA which was not bypassed. The patient underwent angioplasty and drug-eluting stenting ?2 yesterday with an excellent result. At this point I would recommend continuing baby aspirin and Plavix going forward. Patient did very well with IV diuresis, and was on Lasix 20 mg daily at home. Recommend increasing Lasix to 40 mg p.o. daily at home. Patient may be discharged home today, and follow-up with either myself or Dr. Hameed. I called Dr. Hameed yesterday to give him report on the patient's condition and findings. 2. Congestive heart failure: Patient developed type I second-degree AV block with initiation of Coreg therapy. We reduced Coreg therapy to 3.125 mg p.o. twice daily and her heart rate blood pressure and rhythm and remained stable.. The patient has had no syncopal events at home, and would not recommend pacemaker at this time. Recommend continuing losartan 25 mg's p.o. daily and titrating his up for afterload reduction and hypertension control. Also recommend continuing Imdur and continuing Lasix 40 mg p.o. daily. 3. Hyperlipidemia: Patient's LDL is 11 and HDL is 49. Patient may restart her rosuvastatin at home. 4. DVT: The patient has a history of DVT and has a Simone filter. She was on chronic Coumadin therapy prior to arrival. Recommend reinitiation of Coumadin therapy in 2 days time to allow her groin to heal. 5. Thank you very much for the opportunity to participate in the cardiac care of your patient. Patient may be discharged home once secure from a diabetes and medical standpoint. We will sign off. Please call with any questions. Code Visit Inpatient E&M: [id number] Subs Hosp L2
--- NOTE | 2017-06-20 10:18 | EKG12_ITS ---
Test Reason : JOSEPH-ALYSSIA Blood Pressure : / mmHG Vent. Rate : 049 BPM Atrial Rate : 071 BPM P-R Int : 000 ms QRS Dur : 088 ms QT Int : 442 ms P-R-T Axes : 075 004 -26 degrees QTc Int : 399 ms Sinus rhythm with 2nd degree A-V block (Mobitz I) ST & T wave abnormality, consider inferior ischemia Abnormal ECG Confirmed by MARTHA BABIN, DEVENDRA ([id number]), photograph editor WILLIAM LUNSFORD ([id number]) on 06/25/2017 2:50:36 PM Referred By: MALISSA Confirmed By:DEVENDRA THOMAS MD
[2017-06-20 11:10] LABS: Bedside Glucose 331 mg/dL (70-110)
[2017-06-20 16:50] LABS: Bedside Glucose 227 mg/dL (70-110)
[2017-06-20] MEDS: Atorvastatin Calcium 40 MG Tablet PO (21:14)
[2017-06-20] MEDS: Enoxaparin 40 MG/0.4 ML Syringe SC (21:33)
[2017-06-20 22:40] LABS: Bedside Glucose 265 mg/dL (70-110)
--- NOTE | 2017-06-20 23:57 | PCM.PROGNOTE ---
Patient Problems: Active and Suspected Problems NSTEMI (non-ST elevated myocardial infarction) (Acute) Influenza (Acute) Influenza A COPD with acute exacerbation (Acute) KARRIE (obstructive sleep apnea) (Suspected) Subjective: 71-year-old female admitted to the intensive care unit on 06/16/2017 with NSTEMI and EKG changes, influenza A and acute exacerbation of COPD and pulmonary edema. INR was 3.1 on Warfarin. She was diuresed and the coumadin was held. She was seen in consult by dr. Wang and scheduled for cath on 06/18. She had a PTCA of the mid RCA and the proximal RCA and post procedure had a Mynx closure and was transferred back to the ICU. She was transferred to PCU on 06/19. She has had second degree AVB type II and the Coreg was initially decreased to 3.125 mg BID but, she continues to have AVB and the HR is in the 30's at times and the Coreg has now been discontinued. She was restarted on Coumadin for hx of recurrent VTE on 06/20 and received 5 mg. She has an IVC filter. She is c/o lightheadedness at times when sitting in the chair. Denies CP or SOB. She was only able to ambulate 15 feet today. PT is recommending Home PT at [place]. she is going to stay with her sister so she will have better supervision....her son is a winch truck operator and is not always home. she is forgetful and I question her safety if left alone,. - Physical Exam General: Alert, Cooperative, No apparent distress Oral: Dry Mucosa Neck: No JVD Lungs: Clear to auscultation Cardiovascular: Regular rate, Regular Rhythm, Normal S1, Normal S2, No Gallop Abdomen: Bowel Sounds Present, Soft, Non Tender, Non-Distended, Obese Extremities: No edema, - - she has hyperpigmentation of the LE's due to chronic venous insufficiency Skin: No rashes, No breakdown Neurological: Cranial nerves II-XII grossly intact, Neuro grossly intact Vital Signs Temp Pulse Resp BP Pulse Ox 97.6 F L 65 18 142/67 H 96 06/20/17 20:20 06/20/17 20:20 06/20/17 20:20 06/20/17 20:20 06/20/17 20:20 Oxygen Flow Rate (L/min) 3 Oxygen Delivery Method Nasal Cannula Weight: 243 lb 13.3 oz Body Mass Index (BMI) 40.8 Intake and Output for Last 24 Hours 06/18/17 06/19/17 06/20/17 23:59 23:59 23:59 Intake Total 1697 / 1697 1440 / 1440 1200 / 1200 Output Total 3050 / 3050 1850 / 1850 900 / 900 Balance -1353 / -1353 -410 / -410 300 / 300 Microbiology Past 72 Hours 06/16/17 13:15 Blood Culture - Preliminary Blood Culture (Wb) - Line Draw No growth in 48 hours. 06/16/17 10:00 Urine Culture - Final Urine Catheter - Catheter Culture exhibits no growth. Laboratory Tests Past 24 Hrs 06/20/17 06/20/17 07:26 07:26 PT 14.1 INR 1.1 Sodium 134 L Potassium 4.8 Chloride 93 L Carbon Dioxide 36.0 H Anion Gap 5 BUN 35 H Creatinine 0.78 Estim Creat Clear Calc 49.00 Est GFR (MDRD) Af Amer 94 Est GFR (MDRD) Non-Af 78 BUN/Creatinine Ratio 44.9 H Glucose 289 H Calcium 8.8 Magnesium 2.2 POC Glucose 06/20/17 06/20/17 06/20/17 21:13 16:39 11:00 POC Glucose 265 H 227 H 331 H 06/20/17 06/20/17 06:44 03:40 POC Glucose 291 H 275 H Medical Necessity - Tobacco Use Smoking Status: Never smoker Tobacco Use: Non-smoker Assessment/Plan Active and Suspected Problems NSTEMI (non-ST elevated myocardial infarction) (Acute) Influenza (Acute) Influenza A COPD with acute exacerbation (Acute) KARRIE (obstructive sleep apnea) (Suspected) Impressions 1. non-STEMI - S/P 2 stents to the RCA 2. influenza A 3. Acute exacerbation COPD 4. Drug reaction with Allergic dermatitis 5. CAD 6. CABG in 2011 7. DM II 8. HTN 9. HLD 10. Morbid obesity 11. suspected sleep apnea - wear O2 at 2 LPM at night only 12. Chronic anticoagulation with warfarin 13. 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 Status post PIOTR/BSO- for cervical cancer 16. Suspected sleep apnea - has never been tested but, she wears oxygen at night 17. Acute CHF due to ischemic/NSTEMI 18. Acute metabolic encephalopathy due to infection, CHF - with underlying dementia? 19. S/P PTCA of the mid RCA and the proximal RCA and Mynx closure of the RFA 20. Second-degree type II AV block - coreg decreased to 3.[address] Wang. 21. contraction alkalosis - improving with holding the Lasix Coreg has been discontinued. Will continue to monitor on telemetry and if she continues to have second degree type II AVB with HR's in the 30's will likely need a PM she needs to follow up in the pulmonary office in 2 weeks to arrange for PFT's and PSG If her forgetfulness does not improve with treatment of the KARRIE I suspect she has then would consider a referral to neurology to be evaluated for dementia Warfarin has been restarted today. recheck a BMP in the AM and consider restarting Lasix in the next 24 - 48 hours Will go home with her sister at [place] and will need [facility] for PT Code Visit Inpatient E&M: 79489 Subs Hosp L2
[2017-06-21] VITALS (15 sets, daily range): BP systolic 110–145; BP diastolic 54–87; PULSE 34–72; RESP 16–18; TEMP 36.1–37.1; O2SAT 93–97
--- NOTE | 2017-06-21 00:14 | PN_ITS ---
Patient Problems: Active and Suspected Problems NSTEMI (non-ST elevated myocardial infarction) (Acute) Influenza (Acute) Influenza A COPD with acute exacerbation (Acute) KARRIE (obstructive sleep apnea) (Suspected) Subjective: 71-year-old female admitted to the intensive care unit on 06/16/2017 with NSTEMI and EKG changes, influenza A and acute exacerbation of COPD and pulmonary edema. INR was 3.1 on Warfarin. She was diuresed and the coumadin was held. She was seen in consult by dr. Wang and scheduled for cath on 06/18. She had a PTCA of the mid RCA and the proximal RCA and post procedure had a Mynx closure and was transferred back to the ICU. She was transferred to PCU on . She has had second degree AVB type II and the Coreg was initially decreased to 3.125 mg BID but, she continues to have AVB and the HR is in the 30 's at times and the Coreg has now been discontinued. She was restarted on Coumadin for hx of recurrent VTE on 06/20 and received 5 mg. She has an IVC filter. She is c/o lightheadedness at times when sitting in the chair. Denies CP or SOB. She was only able to ambulate 15 feet today. PT is recommending Home PT at [place]. she is going to stay with her sister so she will have better supervision....her son is a truck leasing manager and is not always home. she is forgetful and I question her safety if left alone,. - Physical Exam General: Alert, Cooperative, No apparent distress Oral: Dry Mucosa Neck: No JVD Lungs: Clear to auscultation Cardiovascular: Regular rate, Regular Rhythm, Normal S1, Normal S2, No Gallop Abdomen: Bowel Sounds Present, Soft, Non Tender, Non-Distended, Obese Extremities: No edema, - - she has hyperpigmentation of the LE's due to chronic venous insufficiency Skin: No rashes, No breakdown Neurological: Cranial nerves II-XII grossly intact, Neuro grossly intact Vital Signs Temp Pulse Resp BP Pulse Ox 97.6 F L 65 18 142/67 H 96 06/20/17 20:20 06/20/17 20:20 06/20/17 20:20 06/20/17 20:20 06/20/17 20:20 Oxygen Flow Rate (L/min) 3 Oxygen Delivery Method Nasal Cannula Weight: 243 lb 13.3 oz Body Mass Index (BMI) 40.8 Intake and Output for Last 24 Hours 06/18/17 06/19/17 06/20/17 23:59 23:59 23:59 Intake Total 1697 / 1697 1440 / 1440 1200 / 1200 Output Total 3050 / 3050 1850 / 1850 900 / 900 Balance -1353 / -1353 -410 / -410 300 / 300 Microbiology Past 72 Hours 06/16/17 13:15 Blood Culture - Preliminary Blood Culture (Wb) - Line Draw No growth in 48 hours. 06/16/17 10:00 Urine Culture - Final Urine Catheter - Catheter Culture exhibits no growth. Laboratory Tests Past 24 Hrs 06/20/17 06/20/17 07:26 07:26 PT 14.1 INR 1.1 Sodium 134 L Potassium 4.8 Chloride 93 L Carbon Dioxide 36.0 H Anion Gap 5 BUN 35 H Creatinine 0.78 Estim Creat Clear Calc 49.00 Est GFR (MDRD) Af Amer 94 Est GFR (MDRD) Non-Af 78 BUN/Creatinine Ratio 44.9 H Glucose 289 H Calcium 8.8 Magnesium 2.2 POC Glucose 06/20/17 06/20/17 06/20/17 21:13 16:39 11:00 POC Glucose 265 H 227 H 331 H 06/20/17 06/20/17 06:44 03:40 POC Glucose 291 H 275 H Medical Necessity - Tobacco Use Smoking Status: Never smoker Tobacco Use: Non-smoker Assessment/Plan Active and Suspected Problems NSTEMI (non-ST elevated myocardial infarction) (Acute) Influenza (Acute) Influenza A COPD with acute exacerbation (Acute) KARRIE (obstructive sleep apnea) (Suspected) Impressions 1. non-STEMI - S/P 2 stents to the RCA 2. influenza A 3. Acute exacerbation COPD 4. Drug reaction with Allergic dermatitis 5. CAD 6. CABG in 2011 7. DM II 8. HTN 9. HLD 10. Morbid obesity 11. suspected sleep apnea - wear O2 at 2 LPM at night only 12. Chronic anticoagulation with warfarin 13. 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 Status post PIOTR/BSO- for cervical cancer 16. Suspected sleep apnea - has never been tested but, she wears oxygen at night 17. Acute CHF due to ischemic/NSTEMI 18. Acute metabolic encephalopathy due to infection, CHF - with underlying dementia? 19. S/P PTCA of the mid RCA and the proximal RCA and Mynx closure of the RFA 20. Second-degree type II AV block - coreg decreased to 3.[address] Wang. 21. contraction alkalosis - improving with holding the Lasix Coreg has been discontinued. Will continue to monitor on telemetry and if she continues to have second degree type II AVB with HR's in the 30's will likely need a PM she needs to follow up in the pulmonary office in 2 weeks to arrange for PFT's and PSG If her forgetfulness does not improve with treatment of the KARRIE I suspect she has then would consider a referral to neurology to be evaluated for dementia Warfarin has been restarted today. recheck a BMP in the AM and consider restarting Lasix in the next 24 - 48 hours Will go home with her sister at [place] and will need [facility] for PT Code Visit Inpatient E&M: [id number] Subs Hosp L2
[2017-06-21 03:15] LABS: Bedside Glucose 321 mg/dL (70-110)
[2017-06-21] MEDS: Enoxaparin 40 MG/0.4 ML Syringe SC (05:54)
--- NOTE | 2017-06-21 05:55 | EKG12_ITS ---
Test Reason : AM EKG Blood Pressure : / mmHG Vent. Rate : 051 BPM Atrial Rate : 072 BPM P-R Int : 000 ms QRS Dur : 088 ms QT Int : 422 ms P-R-T Axes : 081 003 -23 degrees QTc Int : 388 ms Sinus rhythm with 2nd degree A-V block (Mobitz I) T wave abnormality, consider inferior ischemia Abnormal ECG When compared with ECG of 20-JUN-2017 05:57, MANUAL COMPARISON REQUIRED, DATA IS UNCONFIRMED Confirmed by SOUTH PENDLETON ([id number]), editorial project manager WILLIAM LUNSFORD ([id number]) on 06/24/2017 3:08:45 PM Referred By: MALISSA Confirmed By:SOUTH PENDLETON
[2017-06-21 06:41] LABS: Anion Gap 3 (5-15); BUN 39 mg/dL (7-18); BUN/Creat Ratio 42.1 RATIO (10-20); Calcium,Total 8.8 mg/dL (8.5-10.1); Chloride 94 mmol/L (98-107); Creatinine, Serum 0.93 mg/dL (0.55-1.02); EST Glomerular Filtration Rate 63 mL/min (>60); Est Glom Filt Rate - Afr Amer 77 mL/min (>60); Estimated Creatinine Clearance 52.69 ml/min; Glucose 283 mg/dL (74-106); Potassium 5.1 mmol/L (3.5-5.1); Sodium Level 131 mmol/L (136-145)
[2017-06-21 07:00] LABS: Bedside Glucose 252 mg/dL (70-110)
[2017-06-21] MEDS: Ipratropium/Albuterol Sulfate 3 ML AMPUL.NEB INHALATION ×3 (07:39→21:23)
--- NOTE | 2017-06-21 09:01 | EKG12_ITS ---
Test Reason : RHYTHM Blood Pressure : / mmHG Vent. Rate : 047 BPM Atrial Rate : 357 BPM P-R Int : 000 ms QRS Dur : 088 ms QT Int : 412 ms P-R-T Axes : 000 001 -32 degrees QTc Int : 364 ms Atrial fibrillation T wave abnormality, consider inferior ischemia Abnormal ECG When compared with ECG of 21-JUN-2017 05:40, MANUAL COMPARISON REQUIRED, DATA IS UNCONFIRMED Confirmed by SOUTH PENDLETON ([id number]), legal editor WILLIAM LUNSFORD ([id number]) on 06/24/2017 3:09:18 PM Referred By: KEERTHI Confirmed By:SOUTH PENDLETON
[2017-06-21] MEDS: Losartan Potassium 50 MG Tablet PO (09:30)
[2017-06-21] MEDS: Psyllium 1 PACKET PO (09:30)
[2017-06-21] MEDS: Aspirin E.C. 81 MG Tablet PO (09:30)
[2017-06-21] MEDS: Oseltamivir Phosphate 30 MG Capsule PO ×2 (09:31→21:31)
[2017-06-21] MEDS: Clopidogrel Bisulfate 75 MG Tablet PO (09:32)
[2017-06-21] MEDS: Isosorbide Mononitrate 30 MG Tablet PO (09:36)
--- NOTE | 2017-06-21 10:24 | PCM.PN.CARD ---
Subjectve: Patient was doing well up until around 430 this morning when she progressed from normal sinus rhythm with type I second-degree AV block, to atrial fibrillation with slow ventricular response in the absence of beta-blockers or calcium channel blockers. Patient is completely asymptomatic and is still recovering from her influenza. She denied any chest pain or anginal symptoms. Objective: Vital Signs Temp Pulse Resp BP Pulse Ox 98.2 F 56 L 16 110/54 L 94 06/21/17 09:37 06/21/17 09:37 06/21/17 09:37 06/21/17 09:37 06/21/17 09:37 Oxygen Flow Rate (L/min) 3 Oxygen Delivery Method Nasal Cannula Weight: 242 lb 11.663 oz Body Mass Index (BMI) 40.8 Intake and Output for Last 24 Hours 06/19/17 06/20/17 06/21/17 23:59 23:59 23:59 Intake Total 1440 / 1440 1200 / 1200 240 / 240 Output Total 1850 / 1850 900 / 900 350 / 350 Balance -410 / -410 300 / 300 -110 / -110 General: Awake, Alert, Oriented x 3 HEENT: PERRL, EOMI, Sclera Non Icteric Neck: Supple, Good ROM, No Lymph Node Enlargement Lungs: Rales - Derian Bases Cardiovascular: Irregular Rhythm, Normal S1, Normal S2, No Murmurs, No Rubs, No Gallops Vascular: No Carotid Bruits, Normal Femoral Pulses, Normal Radial Pulses, Normal Dorsalis Pedal Pulse, Normal Posterior Tibial Pulses Abdomen: Bowel Sounds Present, Soft, Non Tender, No HSM, No Organomegaly Extremities: No Cyanosis, No Clubbing, No edema Neurological: No Focal Motor or Sensory Deficit 06/21/17 05:54: Sodium 131 L, Potassium 5.1, Chloride 94 L, Carbon Dioxide 34.0 H, Anion Gap 3 L, BUN 39 H, Creatinine 0.93, Est GFR (MDRD) Af Amer 77, Est GFR (MDRD) Non-Af 63, BUN/Creatinine Ratio 42.1 H, Glucose 283 H, Calcium 8.8 Rhythm: EKG: Atrial fibrillation with slow ventricular response, resolving inferior T-wave inversion, no acute changes. ECHO: Stress Test: Cardiac Cath: PCI: CT Surgery: Holter monitor: EPS: PPM: CXR: Chest CT Scan: Medical Necessity - Tobacco Use Smoking Status: Never smoker Tobacco Use: Non-smoker Assessment/Plan 1. Coronary artery disease: Patient presents with respiratory distress, wheezing, evidence of CHF by physical exam and chest x-ray, in the face of a adequately anticoagulated INR 3.1 and troponin I of 1.21. Troponin trending down now to 1.06. In addition she had new dynamic lateral ST segment changes with inferior T-wave inversion. Echocardiogram shows mild mid anterior hypokinesis but no significant lateral hypokinesis although the images are challenging. At this point would recommend continuing baby aspirin, continuing 75 mg a day. Patient underwent left heart catheterization yesterday which demonstrated widely patent SUERO to her LAD, saphenous vein graft to her obtuse marginal, severe occlusive disease of her LAD and left circumflex, and critical disease in her mid and proximal RCA which was not bypassed. The patient underwent angioplasty and drug-eluting stenting ?2 yesterday with an excellent result. At this point I would recommend continuing baby aspirin and Plavix going forward. Patient did very well with IV diuresis, and was on Lasix 20 mg daily at home. We had tried her on 40 mg a day however she has developed atrial fibrillation with slow ventricular response and her sodium has been trending downwards. Recommend holding her Lasix today, and hopefully her rhythm will improve. Given her bilateral crackles, would recommend repeat chest x-ray. Patient may be discharged home today, and follow-up with either myself or Dr. Hameed. I called Dr. Hameed yesterday to give him report on the patient's condition and findings. 2. Congestive heart failure: Patient developed type I second-degree AV block with initiation of Coreg therapy. We reduced Coreg therapy to 3.125 mg p.o. twice daily and her heart rate blood pressure and rhythm and remained stable however she now has atrial fibrillation with slow ventricular response. Would recommend holding Coreg at this time. The patient has had no syncopal events at home, and would not recommend pacemaker at this time. Recommend continuing losartan 25 mg's p.o. daily and titrating his up for afterload reduction and hypertension control. Also recommend continuing Imdur and continuing Lasix 40 mg p.o. daily. 3. Hyperlipidemia: Patient's LDL is 11 and HDL is 49. Patient may restart her rosuvastatin at home. 4. DVT: The patient has a history of DVT and has a [place] filter. She was on chronic Coumadin therapy prior to arrival. Recommend reinitiation of Coumadin therapy in 2 days time to allow her groin to heal. We will start Coumadin 5 mg ?1 tonight followed by her usual daily dosage. 5. Atrial fibrillation: The patient had conduction disturbances prior to her atrial fibrillation deterioration. She is asymptomatic from an atrial fibrillation standpoint. She is on no beta-blockers, digoxin or calcium channel blockers, and would recommend considering dual-chamber pacemaker once her influenza has resolved. Would not recommend pacemaker placement at this time given her infection. I discussed the option with patient as well as Dr. Clayton,, who would place the pacemaker. 6. Thank you very much for the opportunity to participate in the cardiac care of your patient. Code Visit Inpatient E&M: [id number] Subs Hosp L2
--- NOTE | 2017-06-21 11:25 | RAD_ITS ---
STUDY: X-RAY CHEST REASON FOR EXAM: Female, 71 years old. Dyspnea and shortness of breath. History of influenza A infection. TECHNIQUE: PA and lateral views of the chest. COMPARISON: Comparison is made with prior study June 16, 2017. FINDINGS: EKG electrodes are seen. Mild increased linear markings at the left lung base suggestive of atelectasis superimposed on the mild bibasilar scarring. There is no demonstrated pleural abnormality. Sternal cerclage wires and vascular clips are present from a prior sternotomy and coronary artery bypass graft procedure (CABG). Stable appearance of the left perihilar surgical changes. Normal visualized pulmonary arteries. Normal visualized aortic arch and descending thoracic aorta. Normal visualized thoracic spine. Normal visualized ribs, clavicles, and shoulders. There is no demonstrated abnormality of the visualized soft tissue structures of the upper abdomen. RAD/Chest PA and Lateral IMPRESSION: Mild increased markings at the lung bases suggesting bibasilar scarring. Electronically Signed: Cory Babin MD at 14:54 EDT Tel [phone], Service support ,
[2017-06-21 11:30] LABS: Bedside Glucose 276 mg/dL (70-110)
--- NOTE | 2017-06-21 12:52 | CASEMGMT ---
RN CM was informed by social work that patient does not want SNF placement, and would be agreeable to [facility]. RN CM made referral to [facility], and per Saray, she would let this RN CM know if they are unable to accept. Anoop Steel BSN, RN-BC, CCM
--- NOTE | 2017-06-21 15:52 | PCM.PN.HOSP ---
Patient Problems: Active and Suspected Problems (Last Updated 06/22/17 @ 07:15 by Katie Quigley) NSTEMI (non-ST elevated myocardial infarction) (Acute) Influenza (Acute) Influenza A COPD with acute exacerbation (Acute) KARRIE (obstructive sleep apnea) (Suspected) Subjective: Patient was seen and examined, denies any new complaints, feels improved. Denies any fever or chills. No acute events overnight Objective: Physical Exam General: Alert, Cooperative, No apparent distress Oral: Dry Mucosa Neck: No JVD Lungs: Clear to auscultation Cardiovascular: Regular rate, Regular Rhythm, Normal S1, Normal S2, No Gallop Abdomen: Bowel Sounds Present, Soft, Non Tender, Non-Distended, Obese Extremities: No edema, - - she has hyperpigmentation of the LE's due to chronic venous insufficiency Skin: No rashes, No breakdown Neurological: Cranial nerves II-XII grossly intact, Neuro grossly intact Vitals/I&O's: Vital Signs Temp Pulse Resp BP Pulse Ox 98.2 F 54 L 16 110/54 L 94 06/21/17 09:37 06/21/17 15:00 06/21/17 13:37 06/21/17 09:37 06/21/17 09:37 Oxygen Flow Rate (L/min) 3 Oxygen Delivery Method Nasal Cannula Weight: 110.1 kg Body Mass Index (BMI) 40.8 Intake and Output for Last 24 Hours 06/19/17 06/20/17 06/21/17 23:59 23:59 23:59 Intake Total 1440 / 1440 1200 / 1200 720 / 720 Output Total 1850 / 1850 900 / 900 350 / 350 Balance -410 / -410 300 / 300 370 / 370 Microbiology Past 72 Hours 06/16/17 13:15 Blood Culture (Wb) - Line Draw Blood Culture - Final No growth in 5 days. Laboratory Results 06/20/17 16:39: POC Glucose 227 H 06/20/17 21:13: POC Glucose 265 H 06/21/17 02:54: POC Glucose 321 H 06/21/17 05:54: Sodium 131 L, Potassium 5.1, Chloride 94 L, Carbon Dioxide 34.0 H, Anion Gap 3 L, BUN 39 H, Creatinine 0.93, Estim Creat Clear Calc 52.69, Est GFR (MDRD) Af Amer 77, Est GFR (MDRD) Non-Af 63, BUN/Creatinine Ratio 42.1 H, Glucose 283 H, Calcium 8.8 06/21/17 06:52: POC Glucose 252 H 06/21/17 11:07: POC Glucose 276 H Current Medications Acetaminophen (Tylenol) 650 mg PO Q6H PRN PRN PRN Reason: Non-cardiac pain (mod-severe) Last Admin: 06/20/17 06:45 Dose: 650 mg Albuterol/Ipratropium (Duoneb) 3 ml INHALATION Q6HWA.RT [facility] Last Admin: 06/21/17 13:36 Dose: 3 ml Aspirin (Ecotrin) 81 mg PO DAILY [facility] Last Admin: 06/21/17 09:30 Dose: 81 mg Atorvastatin Calcium (Lipitor) 40 mg PO QHS [facility] Last Admin: 06/20/17 21:14 Dose: 40 mg Atropine Sulfate () 0.5 mg IV UD PRN PRN Reason: HR <50 bpm Clopidogrel Bisulfate (Plavix) 75 mg PO DAILY [facility] Last Admin: 06/21/17 09:32 Dose: 75 mg Enoxaparin Sodium (Lovenox) 40 mg SC DAILY@0600 [facility] Last Admin: 06/21/17 05:54 Dose: 40 mg Ergocalciferol (Vitamin D) 50,000 unit PO QWEEK [facility] Last Admin: 06/20/17 08:21 Dose: 50,000 unit Furosemide (Lasix) 40 mg PO DAILY [facility] Last Admin: 06/19/17 09:00 Dose: 40 mg Guaifenesin (Robitussin Dm) 10 ml PO Q6H PRN PRN PRN Reason: COUGH Last Admin: 06/20/17 08:29 Dose: 10 ml Sodium Chloride () 1,000 mls @ 0 mls/hr IV .Q0M [facility] PRN Reason: KVO Insulin Aspart (Novolog Flexpen (Bkc)) 10 units SC TIDAC [facility] Last Admin: 06/21/17 11:11 Dose: 10 u Insulin Aspart (Novolog Flexpen (Bkc)) 0 units SC TIDAC [facility] PRN Reason: Protocol Last Admin: 06/21/17 11:11 Dose: 9 u Insulin Detemir (Levemir (Bkc)) 32 units SC 2200 [facility] Last Admin: 06/20/17 21:15 Dose: 32 u Isosorbide Mononitrate (Imdur) 30 mg PO DAILY [facility] Last Admin: 06/21/17 09:36 Dose: 30 mg Losartan Potassium (Cozaar) 25 mg PO DAILY [facility] Magnesium Hydroxide (Milk Of Magnesia) 30 ml PO DAILY PRN PRN PRN Reason: Constipation Last Admin: 06/20/17 08:29 Dose: 30 ml Morphine Sulfate () 2 mg IV Q3H PRN PRN PRN Reason: SEVERE PAIN (6-10/10) Last Admin: 06/18/17 11:23 Dose: 2 mg Nitroglycerin (Nitrostat) 0.4 mg SUBLINGUAL Q5M PRN PRN Reason: CHEST PAIN Oseltamivir Phosphate (Tamiflu) 30 mg PO BID [facility] Last Admin: 06/21/17 09:31 Dose: 30 mg Potassium Chloride (K-Dur) 20 meq PO DAILY [facility] Last Admin: 06/21/17 09:30 Dose: 20 meq Prednisone (Prednisone) 30 mg PO DAILY@0800 [facility] Last Admin: 06/21/17 09:31 Dose: 30 mg Psyllium Hydrophilic Mucilloid (Metamucil) 1 packet PO DAILY [facility] Last Admin: 06/21/17 09:30 Dose: 1 packet Sodium Chloride () 5 - 30 ml IV UD PRN PRN Reason: SALINE FLUSH Last Admin: 06/19/17 14:18 Dose: 5 ml Sodium Chloride () 500 ml IV BOLUS PRN PRN Reason: VASO-VAGAL PROTOCOL Tramadol HCl (Ultram (G)) 50 mg PO BID PRN PRN Reason: PAIN Last Admin: 06/19/17 21:53 Dose: 50 mg Warfarin Sodium 1 mg/ Warfarin (Sodium 0.5 mg) 1.5 mg PO DAILY@1700 [facility] Last Admin: 06/21/17 10:04 Dose: Not Given Warfarin Sodium (Coumadin (Pbkc)) 5 mg PO X1 ONE Stop: 06/21/17 17:01 Medical Necessity - Tobacco Use Smoking Status: Never smoker Tobacco Use: Non-smoker Assessment/Plan Active and Suspected Problems (Last Updated 06/22/17 @ 07:15 by Katie Quigley) NSTEMI (non-ST elevated myocardial infarction) (Acute) Influenza (Acute) Influenza A COPD with acute exacerbation (Acute) KARRIE (obstructive sleep apnea) (Suspected) 71-year-old female admitted on 06/16/2017 with NSTEMI, acute influenza E, acute exacerbation of COPD. Patient is status post heart cath on 04/10/2017 which there was PTCA of the mid RCA and proximal RCA. Patient was transferred from ICU to the PCU on 04/11/2016. She developed second-degree AV block type I and her Coreg was decreased to 3.125 twice daily but continues to have heart blocks with heart rates in the 30s and Coreg was subsequently discontinued. 1. Acute NSTEMI status post PTCA to mid RCA and proximal RCA, on aspirin, Plavix, and coreg held on account of type I second-degree AV block 2. Acute systolic CHF exacerbation, EF 55%, is held on account of patient's arrhythmias, of Coreg, on statin, on aspirin and Plavix 3. Acute influenza A with acute bronchitis/acute COPD exacerbation, remains on Tamiflu, steroid taper, breathing treatments, continue the same 4. Atrial fibrillation, on Coumadin, INR is pending, continue to monitor 5. CAD status post CABG 6. Type 2DM, sugars are stable, home insulin regimen of Levemir, and insulin sliding scale as well as Accu-Cheks 7. Hypertension, controlled, will continue to monitor vitals closely 8. Hyperlipidemia, statin 9. Morbid Obesity/better sleep apnea, on oxygen at night 10. 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 Metabolic encephalopathy secondary to multiple concurrent comorbidities, patient will be reassessed in the outpatient, will need a polysomnogram on discharge 12. DVT prophylaxison Coumadin and Lovenox pending INR being therapeutic Code Visit Inpatient E&M: 75137 [facility] Hosp L2
--- NOTE | 2017-06-21 16:14 | PN_ITS ---
Patient Problems: Active and Suspected Problems (Last Updated 06/22/17 @ 07:15 by Katie Quigley) NSTEMI (non-ST elevated myocardial infarction) (Acute) Influenza (Acute) Influenza A COPD with acute exacerbation (Acute) KARRIE (obstructive sleep apnea) (Suspected) Subjective: Patient was seen and examined, denies any new complaints, feels improved. Denies any fever or chills. No acute events overnight Objective: Physical Exam General: Alert, Cooperative, No apparent distress Oral: Dry Mucosa Neck: No JVD Lungs: Clear to auscultation Cardiovascular: Regular rate, Regular Rhythm, Normal S1, Normal S2, No Gallop Abdomen: Bowel Sounds Present, Soft, Non Tender, Non-Distended, Obese Extremities: No edema, - - she has hyperpigmentation of the LE's due to chronic venous insufficiency Skin: No rashes, No breakdown Neurological: Cranial nerves II-XII grossly intact, Neuro grossly intact Vitals/I&O's: Vital Signs Temp Pulse Resp BP Pulse Ox 98.2 F 54 L 16 110/54 L 94 06/21/17 09:37 06/21/17 15:00 06/21/17 13:37 06/21/17 09:37 06/21/17 09:37 Oxygen Flow Rate (L/min) 3 Oxygen Delivery Method Nasal Cannula Weight: 110.1 kg Body Mass Index (BMI) 40.8 Intake and Output for Last 24 Hours 06/19/17 06/20/17 06/21/17 23:59 23:59 23:59 Intake Total 1440 / 1440 1200 / 1200 720 / 720 Output Total 1850 / 1850 900 / 900 350 / 350 Balance -410 / -410 300 / 300 370 / 370 Microbiology Past 72 Hours 06/16/17 13:15 Blood Culture (Wb) - Line Draw Blood Culture - Final No growth in 5 days. Laboratory Results 06/20/17 16:39: POC Glucose 227 H 06/20/17 21:13: POC Glucose 265 H 06/21/17 02:54: POC Glucose 321 H 06/21/17 05:54: Sodium 131 L, Potassium 5.1, Chloride 94 L, Carbon Dioxide 34.0 H, Anion Gap 3 L, BUN 39 H, Creatinine 0.93, Estim Creat Clear Calc 52.69, Est GFR (MDRD) Af Amer 77, Est GFR (MDRD) Non-Af 63, BUN/Creatinine Ratio 42.1 H, Glucose 283 H, Calcium 8.8 06/21/17 06:52: POC Glucose 252 H 06/21/17 11:07: POC Glucose 276 H Current Medications Acetaminophen (Tylenol) 650 mg PO Q6H PRN PRN PRN Reason: Non-cardiac pain (mod-severe) Last Admin: 06/20/17 06:45 Dose: 650 mg Albuterol/Ipratropium (Duoneb) 3 ml INHALATION Q6HWA.RT [facility] Last Admin: 06/21/17 13:36 Dose: 3 ml Aspirin (Ecotrin) 81 mg PO DAILY [facility] Last Admin: 06/21/17 09:30 Dose: 81 mg Atorvastatin Calcium (Lipitor) 40 mg PO QHS [facility] Last Admin: 06/20/17 21:14 Dose: 40 mg Atropine Sulfate () 0.5 mg IV UD PRN PRN Reason: HR <50 bpm Clopidogrel Bisulfate (Plavix) 75 mg PO DAILY [facility] Last Admin: 06/21/17 09:32 Dose: 75 mg Enoxaparin Sodium (Lovenox) 40 mg SC DAILY@0600 [facility] Last Admin: 06/21/17 05:54 Dose: 40 mg Ergocalciferol (Vitamin D) 50,000 unit PO QWEEK [facility] Last Admin: 06/20/17 08:21 Dose: 50,000 unit Furosemide (Lasix) 40 mg PO DAILY [facility] Last Admin: 06/19/17 09:00 Dose: 40 mg Guaifenesin (Robitussin Dm) 10 ml PO Q6H PRN PRN PRN Reason: COUGH Last Admin: 06/20/17 08:29 Dose: 10 ml Sodium Chloride () 1,000 mls @ 0 mls/hr IV .Q0M [facility] PRN Reason: KVO Insulin Aspart (Novolog Flexpen (Bkc)) 10 units SC TIDAC [facility] Last Admin: 06/21/17 11:11 Dose: 10 u Insulin Aspart (Novolog Flexpen (Bkc)) 0 units SC TIDAC [facility] PRN Reason: Protocol Last Admin: 06/21/17 11:11 Dose: 9 u Insulin Detemir (Levemir (Bkc)) 32 units SC 2200 [facility] Last Admin: 06/20/17 21:15 Dose: 32 u Isosorbide Mononitrate (Imdur) 30 mg PO DAILY [facility] Last Admin: 06/21/17 09:36 Dose: 30 mg Losartan Potassium (Cozaar) 25 mg PO DAILY [facility] Magnesium Hydroxide (Milk Of Magnesia) 30 ml PO DAILY PRN PRN PRN Reason: Constipation Last Admin: 06/20/17 08:29 Dose: 30 ml Morphine Sulfate () 2 mg IV Q3H PRN PRN PRN Reason: SEVERE PAIN (6-10/10) Last Admin: 06/18/17 11:23 Dose: 2 mg Nitroglycerin (Nitrostat) 0.4 mg SUBLINGUAL Q5M PRN PRN Reason: CHEST PAIN Oseltamivir Phosphate (Tamiflu) 30 mg PO BID [facility] Last Admin: 06/21/17 09:31 Dose: 30 mg Potassium Chloride (K-Dur) 20 meq PO DAILY [facility] Last Admin: 06/21/17 09:30 Dose: 20 meq Prednisone (Prednisone) 30 mg PO DAILY@0800 [facility] Last Admin: 06/21/17 09:31 Dose: 30 mg Psyllium Hydrophilic Mucilloid (Metamucil) 1 packet PO DAILY [facility] Last Admin: 06/21/17 09:30 Dose: 1 packet Sodium Chloride () 5 - 30 ml IV UD PRN PRN Reason: SALINE FLUSH Last Admin: 06/19/17 14:18 Dose: 5 ml Sodium Chloride () 500 ml IV BOLUS PRN PRN Reason: VASO-VAGAL PROTOCOL Tramadol HCl (Ultram (G)) 50 mg PO BID PRN PRN Reason: PAIN Last Admin: 06/19/17 21:53 Dose: 50 mg Warfarin Sodium 1 mg/ Warfarin (Sodium 0.5 mg) 1.5 mg PO DAILY@1700 [facility] Last Admin: 06/21/17 10:04 Dose: Not Given Warfarin Sodium (Coumadin (Pbkc)) 5 mg PO X1 ONE Stop: 06/21/17 17:01 Medical Necessity - Tobacco Use Smoking Status: Never smoker Tobacco Use: Non-smoker Assessment/Plan Active and Suspected Problems (Last Updated 06/22/17 @ 07:15 by Katie Quigley) NSTEMI (non-ST elevated myocardial infarction) (Acute) Influenza (Acute) Influenza A COPD with acute exacerbation (Acute) KARRIE (obstructive sleep apnea) (Suspected) 71-year-old female admitted on 06/16/2017 with NSTEMI, acute influenza E, acute exacerbation of COPD. Patient is status post heart cath on 04/10/2017 which there was PTCA of the mid RCA and proximal RCA. Patient was transferred from ICU to the PCU on 04/11/2016. She developed second-degree AV block type I and her Coreg was decreased to 3.125 twice daily but continues to have heart blocks with heart rates in the 30s and Coreg was subsequently discontinued. 1. Acute NSTEMI status post PTCA to mid RCA and proximal RCA, on aspirin, Plavix, and coreg held on account of type I second-degree AV block 2. Acute systolic CHF exacerbation, EF 55%, is held on account of patient's arrhythmias, of Coreg, on statin, on aspirin and Plavix 3. Acute influenza A with acute bronchitis/acute COPD exacerbation, remains on Tamiflu, steroid taper, breathing treatments, continue the same 4. Atrial fibrillation, on Coumadin, INR is pending, continue to monitor 5. CAD status post CABG 6. Type 2DM, sugars are stable, home insulin regimen of Levemir, and insulin sliding scale as well as Accu-Cheks 7. Hypertension, controlled, will continue to monitor vitals closely 8. Hyperlipidemia, statin 9. Morbid Obesity/better sleep apnea, on oxygen at night 10. 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 Metabolic encephalopathy secondary to multiple concurrent comorbidities, patient will be reassessed in the outpatient, will need a polysomnogram on discharge 12. DVT prophylaxison Coumadin and Lovenox pending INR being therapeutic Code Visit Inpatient E&M: 19483 [facility] Hosp L2
[2017-06-21 16:25] LABS: Bedside Glucose 306 mg/dL (70-110)
[2017-06-21] MEDS: Acetaminophen 325 MG Tablet 650 MG PO (17:38)
[2017-06-21] MEDS: 0.9% NaCl Peripheral Flush Adult/Peds IV (20:24)
[2017-06-21] MEDS: Atorvastatin Calcium 40 MG Tablet PO (21:31)
[2017-06-21 21:40] LABS: Bedside Glucose 323 mg/dL (70-110)
[2017-06-21] MEDS: LORazepam 0.5 MG Tablet PO (23:39)
[2017-06-22] VITALS (17 sets, daily range): BP systolic 124–159; BP diastolic 58–83; PULSE 30–69; RESP 16–21; TEMP 35.9–37; O2SAT 93–98
[2017-06-22 02:16] LABS: Bedside Glucose 295 mg/dL (70-110)
[2017-06-22] MEDS: Enoxaparin 40 MG/0.4 ML Syringe SC (06:19)
[2017-06-22 06:29] LABS: International Normalized Ratio 1.5; Prothrombin Time (Protime)PT. 18.1 SECONDS (11.7-14.9)
[2017-06-22] MEDS: Ipratropium/Albuterol Sulfate 3 ML AMPUL.NEB INHALATION ×3 (06:49→19:43)
[2017-06-22 07:05] LABS: Bedside Glucose 276 mg/dL (70-110)
[2017-06-22 09:46] LABS: ACT Activated Clotting Time 197 sec (74-137)
[2017-06-22] MEDS: Aspirin E.C. 81 MG Tablet PO (09:54)
[2017-06-22] MEDS: Losartan Potassium 25 MG Tablet PO (09:54)
[2017-06-22] MEDS: Clopidogrel Bisulfate 75 MG Tablet PO (09:55)
[2017-06-22] MEDS: Oseltamivir Phosphate 30 MG Capsule PO ×2 (09:55→21:57)
[2017-06-22] MEDS: Isosorbide Mononitrate 30 MG Tablet PO (09:55)
[2017-06-22] MEDS: Psyllium 1 PACKET PO (09:55)
[2017-06-22] MEDS: Furosemide 20 MG Tablet PO (10:05)
[2017-06-22 12:20] LABS: Bedside Glucose 306 mg/dL (70-110)
[2017-06-22 16:51] LABS: Bedside Glucose 194 mg/dL (70-110)
[2017-06-22] MEDS: Enoxaparin 100 MG/ML Syringe SC (17:39)
--- NOTE | 2017-06-22 18:26 | PCM.PN.HOSP ---
Patient Problems: Active and Suspected Problems (Last Updated 06/22/17 @ 07:15 by Katie Quigley) NSTEMI (non-ST elevated myocardial infarction) (Acute) Influenza (Acute) Influenza A COPD with acute exacerbation (Acute) KARRIE (obstructive sleep apnea) (Suspected) Subjective: Patient seen and examined. Patient feels slightly better. Complains of coughing with sputum production. Denies fever, chills, chest pain. Has had bradycardic with HR going down to 27s. Objective: Physical Exam General: Alert, Cooperative, No apparent distress, not pale, not jaundiced Oral: Moist Mucosa Neck: No JVD Lungs: Clear to auscultation Cardiovascular: Regular rate, Regular Rhythm, Normal S1, Normal S2, No Gallop Abdomen: Bowel Sounds Present, Soft, Non Tender, Non-Distended, Obese Extremities: No edema, - - she has hyperpigmentation of the LE's due to chronic venous insufficiency Skin: No rashes, No breakdown Neurological: Cranial nerves II-XII grossly intact, Neuro grossly intact Vitals/I&O's: Vital Signs Temp Pulse Resp BP Pulse Ox 97.4 F L 50 L 18 124/61 H 93 06/22/17 14:42 06/22/17 15:01 06/22/17 14:42 06/22/17 14:42 06/22/17 14:42 Oxygen Flow Rate (L/min) 2 Oxygen Delivery Method Nasal Cannula Weight: 103.5 kg Body Mass Index (BMI) 40.8 Intake and Output for Last 24 Hours 06/20/17 06/21/17 06/22/17 23:59 23:59 23:59 Intake Total 1200 / 1200 1500 / 1500 600 / 600 Output Total 900 / 900 350 / 350 450 / 450 Balance 300 / 300 1150 / 1150 150 / 150 Microbiology Past 72 Hours 06/16/17 13:15 Blood Culture (Wb) - Line Draw Blood Culture - Final No growth in 5 days. Laboratory Results 06/18/17 09:24: Activated Clotting Time 197 H 06/21/17 21:30: POC Glucose 323 H 06/22/17 02:07: POC Glucose 295 H 06/22/17 06:00: PT 18.1 H, INR 1.5 06/22/17 06:58: POC Glucose 276 H 06/22/17 11:56: POC Glucose 306 H 06/22/17 16:41: POC Glucose 194 H Current Medications Acetaminophen (Tylenol) 650 mg PO Q6H PRN PRN PRN Reason: Non-cardiac pain (mod-severe) Last Admin: 06/21/17 17:38 Dose: 650 mg Albuterol/Ipratropium (Duoneb) 3 ml INHALATION Q6HWA.RT [facility] Last Admin: 06/22/17 13:08 Dose: 3 ml Aspirin (Ecotrin) 81 mg PO DAILY [facility] Last Admin: 06/22/17 09:54 Dose: 81 mg Atorvastatin Calcium (Lipitor) 40 mg PO QHS [facility] Last Admin: 06/21/17 21:31 Dose: 40 mg Atropine Sulfate () 0.5 mg IV UD PRN PRN Reason: HR <50 bpm Clopidogrel Bisulfate (Plavix) 75 mg PO DAILY [facility] Last Admin: 06/22/17 09:55 Dose: 75 mg Enoxaparin Sodium (Lovenox) 100 mg 1 mg/kg (100 mg) SC Q12@0600,1800 [facility] Last Admin: 06/22/17 17:39 Dose: 100 mg Ergocalciferol (Vitamin D) 50,000 unit PO QWEEK [facility] Last Admin: 06/20/17 08:21 Dose: 50,000 unit Furosemide (Lasix) 20 mg PO DAILY [facility] Last Admin: 06/22/17 10:05 Dose: 20 mg Guaifenesin (Robitussin Dm) 10 ml PO Q6H PRN PRN PRN Reason: COUGH Last Admin: 06/20/17 08:29 Dose: 10 ml Sodium Chloride () 1,000 mls @ 0 mls/hr IV .Q0M [facility] PRN Reason: KVO Insulin Aspart (Novolog Flexpen (Bkc)) 10 units SC TIDAC [facility] Last Admin: 06/22/17 16:42 Dose: 10 u Insulin Aspart (Novolog Flexpen (Bkc)) 0 units SC TIDAC [facility] PRN Reason: Protocol Last Admin: 06/22/17 16:43 Dose: 3 u Insulin Detemir (Levemir (Bkc)) 36 units SC 2200 [facility] Isosorbide Mononitrate (Imdur) 30 mg PO DAILY [facility] Last Admin: 06/22/17 09:55 Dose: 30 mg Losartan Potassium (Cozaar) 25 mg PO DAILY [facility] Last Admin: 06/22/17 09:54 Dose: 25 mg Magnesium Hydroxide (Milk Of Magnesia) 30 ml PO DAILY PRN PRN PRN Reason: Constipation Last Admin: 06/20/17 08:29 Dose: 30 ml Morphine Sulfate () 2 mg IV Q3H PRN PRN PRN Reason: SEVERE PAIN (6-10/10) Last Admin: 06/21/17 20:23 Dose: 2 mg Nitroglycerin (Nitrostat) 0.4 mg SUBLINGUAL Q5M PRN PRN Reason: CHEST PAIN Oseltamivir Phosphate (Tamiflu) 30 mg PO BID [facility] Last Admin: 06/22/17 09:55 Dose: 30 mg Potassium Chloride (K-Dur) 20 meq PO DAILY [facility] Last Admin: 06/22/17 09:55 Dose: 20 meq Prednisone (Prednisone) 30 mg PO DAILY@0800 [facility] Last Admin: 06/22/17 09:54 Dose: 30 mg Psyllium Hydrophilic Mucilloid (Metamucil) 1 packet PO DAILY [facility] Last Admin: 06/22/17 09:55 Dose: 1 packet Sodium Chloride () 5 - 30 ml IV UD PRN PRN Reason: SALINE FLUSH Last Admin: 06/21/17 20:24 Dose: 10 ml Sodium Chloride () 500 ml IV BOLUS PRN PRN Reason: VASO-VAGAL PROTOCOL Tramadol HCl (Ultram (G)) 50 mg PO BID PRN PRN Reason: PAIN Last Admin: 06/19/17 21:53 Dose: 50 mg Warfarin Sodium 1 mg/ Warfarin (Sodium 0.5 mg) 1.5 mg PO DAILY@1700 [facility] Last Admin: 06/21/17 10:04 Dose: Not Given Medical Necessity - Tobacco Use Smoking Status: Never smoker Tobacco Use: Non-smoker Assessment/Plan Active and Suspected Problems (Last Updated 06/22/17 @ 07:15 by Katie Quigley) NSTEMI (non-ST elevated myocardial infarction) (Acute) Influenza (Acute) Influenza A COPD with acute exacerbation (Acute) KARRIE (obstructive sleep apnea) (Suspected) 71-year-old female admitted on 06/16/2017 with NSTEMI, acute influenza A, acute exacerbation of COPD. Patient is status post heart cath on 06/18/2017 which there was PTCA of the mid RCA and proximal RCA. Patient was transferred from ICU to the PCU on 06/19/2016. She developed second-degree AV block type I and her Coreg was decreased to 3.125 twice daily but continues to have heart blocks with heart rates in the 30s and Coreg was subsequently discontinued. 1. Bradycardic, episodic, cardiology following to decide on possible pacemaker insertion. 2. Acute NSTEMI status post PTCA to mid RCA and proximal RCA, on aspirin, Plavix. Coreg has been held on account of type I second-degree AV block. 3. Acute systolic CHF exacerbation, EF 55%, off Coreg, on statin, on aspirin and Plavix, lasix held on account of arrhythmias. 3. Acute influenza A with acute bronchitis/acute COPD exacerbation, remains on Tamiflu, steroid taper, breathing treatments, continue the same 4. Atrial fibrillation, on Coumadin, INR is subtherapeutic, continue to monitor 5. CAD status post CABG 6. Type 2DM, sugars are stable, home insulin regimen of Levemir, and insulin sliding scale as well as Accu-Cheks 7. Hypertension, controlled 8. Hyperlipidemia on statin 9. Morbid Obesity/better sleep apnea, on oxygen at night 10. 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 Metabolic encephalopathy secondary to multiple concurrent comorbidities, patient will be reassessed in the outpatient, will need a polysomnogram on discharge 12. DVT prophylaxis -on Coumadin and Lovenox pending INR being therapeutic Code Visit Inpatient E&M: 26539 [facility] Hosp L2
[2017-06-22] MEDS: Atorvastatin Calcium 40 MG Tablet PO (21:57)
[2017-06-22 22:21] LABS: Bedside Glucose 288 mg/dL (70-110)
[2017-06-23] VITALS (13 sets, daily range): BP systolic 115–149; BP diastolic 42–67; PULSE 43–69; RESP 14–18; TEMP 35.7–36.9; O2SAT 92–97
[2017-06-23 03:21] LABS: Bedside Glucose 249 mg/dL (70-110)
[2017-06-23] MEDS: Enoxaparin 100 MG/ML Syringe SC ×2 (06:47→17:27)
[2017-06-23 06:56] LABS: Bedside Glucose 235 mg/dL (70-110)
[2017-06-23] MEDS: Ipratropium/Albuterol Sulfate 3 ML AMPUL.NEB INHALATION ×3 (07:09→19:20)
[2017-06-23 07:15] LABS: International Normalized Ratio 1.9; Prothrombin Time (Protime)PT. 22.1 SECONDS (11.7-14.9)
[2017-06-23] MEDS: Oseltamivir Phosphate 30 MG Capsule PO ×2 (09:13→21:59)
[2017-06-23] MEDS: Isosorbide Mononitrate 30 MG Tablet PO (09:13)
[2017-06-23] MEDS: Furosemide 20 MG Tablet PO (09:13)
[2017-06-23] MEDS: Aspirin E.C. 81 MG Tablet PO (09:13)
[2017-06-23] MEDS: Losartan Potassium 25 MG Tablet PO (09:13)
[2017-06-23] MEDS: Clopidogrel Bisulfate 75 MG Tablet PO (09:13)
[2017-06-23] MEDS: Psyllium 1 PACKET PO (09:13)
[2017-06-23 11:56] LABS: Bedside Glucose 197 mg/dL (70-110)
--- NOTE | 2017-06-23 14:03 | CASEMGMT ---
Addendum entered by Gabbi Villa 06/23/17 15:03: Received call from Natasha at [facility] and they can accept patient. CHRISSIE told her patient will likely be d/c tomorrow. SW spoke with patient and let her know this information. She was tearful as she didn't want to go through all of this again. She said she had a heart attack several years ago. SW provided emotional support. SW let physician know the plan is [facility]. Gabbi GARCIA Original Note: Patient has gone back and forth with her d/c plan. She has now told the home health nurse that came to see her here in hospital that she is going to go home and not her sisters. SW spoke with patient and she asked if she could go to [facility] hospital. SW told her SW can make a referral. SW let physician know. CHRISSIE called [facility] and spoke with Natasha. She told SW to fax the referral. SW faxed the referral. Gabbi VILLALTA [employer]
[2017-06-23 17:26] LABS: Bedside Glucose 283 mg/dL (70-110)
[2017-06-23] MEDS: Atorvastatin Calcium 40 MG Tablet PO (21:59)
[2017-06-23] MEDS: Magnesium Hydroxide 30 ML UDC PO (21:59)
--- NOTE | 2017-06-23 23:12 | PN_ITS ---
Patient Problems: Active and Suspected Problems (Last Updated 06/22/17 @ 07:15 by Katie Quigley) NSTEMI (non-ST elevated myocardial infarction) (Acute) Influenza (Acute) Influenza A COPD with acute exacerbation (Acute) KARRIE (obstructive sleep apnea) (Suspected) Subjective: Patient was seen and examined. Still feels about the same. Denies any fever or chills. Cardiology plans on reevaluating patient and possible pacemaker placement later. Objective: Physical Exam General: Alert, Cooperative, No apparent distress, not pale, not jaundiced Oral: Moist Mucosa Neck: No JVD Lungs: Clear to auscultation Cardiovascular: Regular rate, Regular Rhythm, Normal S1, Normal S2, No Gallop Abdomen: Bowel Sounds Present, Soft, Non Tender, Non-Distended, Obese Extremities: No edema, - - she has hyperpigmentation of the LE's due to chronic venous insufficiency Skin: No rashes, No breakdown Neurological: Cranial nerves II-XII grossly intact, Neuro grossly intact Vitals/I&O's: Vital Signs Temp Pulse Resp BP Pulse Ox 96.2 F L 49 L 18 142/67 H 95 06/23/17 21:45 06/23/17 23:04 06/23/17 21:45 06/23/17 21:45 06/23/17 21:45 Oxygen Flow Rate (L/min) 2 Oxygen Delivery Method Nasal Cannula Weight: 111.8 kg Body Mass Index (BMI) 40.8 Intake and Output for Last 24 Hours 06/21/17 06/22/17 06/23/17 23:59 23:59 23:59 Intake Total 1500 / 1500 600 / 600 1020 / 1020 Output Total 350 / 350 450 / 450 700 / 700 Balance 1150 / 1150 150 / 150 320 / 320 Microbiology Past 72 Hours 06/16/17 13:15 Blood Culture (Wb) - Line Draw Blood Culture - Final No growth in 5 days. Laboratory Results 06/23/17 02:10: POC Glucose 249 H 06/23/17 06:49: POC Glucose 235 H 06/23/17 06:50: PT 22.1 H, INR 1.9 06/23/17 11:39: POC Glucose 197 H 06/23/17 17:19: POC Glucose 283 H 06/23/17 22:20: Glucose Pending Current Medications Acetaminophen (Tylenol) 650 mg PO Q6H PRN PRN PRN Reason: Non-cardiac pain (mod-severe) Last Admin: 06/21/17 17:38 Dose: 650 mg Albuterol/Ipratropium (Duoneb) 3 ml INHALATION Q6HWA.RT COUNT INCLUDES THE [facility] Last Admin: 06/23/17 19:20 Dose: 3 ml Aspirin (Ecotrin) 81 mg PO DAILY COUNT INCLUDES THE [facility] Last Admin: 06/23/17 09:13 Dose: 81 mg Atorvastatin Calcium (Lipitor) 40 mg PO QHS COUNT INCLUDES THE [facility] Last Admin: 06/23/17 21:59 Dose: 40 mg Atropine Sulfate () 0.5 mg IV UD PRN PRN Reason: HR <50 bpm Clopidogrel Bisulfate (Plavix) 75 mg PO DAILY COUNT INCLUDES THE [facility] Last Admin: 06/23/17 09:13 Dose: 75 mg Enoxaparin Sodium (Lovenox) 100 mg 1 mg/kg (100 mg) SC Q12@0600,1800 COUNT INCLUDES THE [facility] Last Admin: 06/23/17 17:27 Dose: 100 mg Ergocalciferol (Vitamin D) 50,000 unit PO QWEEK COUNT INCLUDES THE [facility] Last Admin: 06/20/17 08:21 Dose: 50,000 unit Furosemide (Lasix) 20 mg PO DAILY COUNT INCLUDES THE [facility] Last Admin: 06/23/17 09:13 Dose: 20 mg Guaifenesin (Robitussin Dm) 10 ml PO Q6H PRN PRN PRN Reason: COUGH Last Admin: 06/20/17 08:29 Dose: 10 ml Sodium Chloride () 1,000 mls @ 0 mls/hr IV .Q0M COUNT INCLUDES THE [facility] PRN Reason: KVO Insulin Aspart (Novolog Flexpen (Bkc)) 10 units SC TIDAC COUNT INCLUDES THE [facility] Last Admin: 06/23/17 17:21 Dose: 10 u Insulin Aspart (Novolog Flexpen (Bkc)) 0 units SC TIDAC COUNT INCLUDES THE [facility] PRN Reason: Protocol Last Admin: 06/23/17 17:21 Dose: 9 u Insulin Detemir (Levemir (Bkc)) 36 units SC 2200 COUNT INCLUDES THE [facility] Last Admin: 06/22/17 21:58 Dose: 36 u Isosorbide Mononitrate (Imdur) 30 mg PO DAILY COUNT INCLUDES THE [facility] Last Admin: 06/23/17 09:13 Dose: 30 mg Losartan Potassium (Cozaar) 25 mg PO DAILY COUNT INCLUDES THE [facility] Last Admin: 06/23/17 09:13 Dose: 25 mg Magnesium Hydroxide (Milk Of Magnesia) 30 ml PO DAILY PRN PRN PRN Reason: Constipation Last Admin: 06/23/17 21:59 Dose: 30 ml Morphine Sulfate () 2 mg IV Q3H PRN PRN PRN Reason: SEVERE PAIN (6-10/10) Last Admin: 06/22/17 21:57 Dose: 2 mg Nitroglycerin (Nitrostat) 0.4 mg SUBLINGUAL Q5M PRN PRN Reason: CHEST PAIN Oseltamivir Phosphate (Tamiflu) 30 mg PO BID COUNT INCLUDES THE [facility] Last Admin: 06/23/17 21:59 Dose: 30 mg Potassium Chloride (K-Dur) 20 meq PO DAILY COUNT INCLUDES THE [facility] Last Admin: 06/23/17 09:13 Dose: 20 meq Prednisone (Prednisone) 30 mg PO DAILY@0800 COUNT INCLUDES THE [facility] Last Admin: 06/23/17 09:12 Dose: 30 mg Psyllium Hydrophilic Mucilloid (Metamucil) 1 packet PO DAILY COUNT INCLUDES THE [facility] Last Admin: 06/23/17 09:13 Dose: 1 packet Sodium Chloride () 5 - 30 ml IV UD PRN PRN Reason: SALINE FLUSH Last Admin: 06/21/17 20:24 Dose: 10 ml Sodium Chloride () 500 ml IV BOLUS PRN PRN Reason: VASO-VAGAL PROTOCOL Tramadol HCl (Ultram (G)) 50 mg PO BID PRN PRN Reason: PAIN Last Admin: 06/19/17 21:53 Dose: 50 mg Warfarin Sodium 1 mg/ Warfarin (Sodium 0.5 mg) 1.5 mg PO DAILY@1700 COUNT INCLUDES THE [facility] Last Admin: 06/21/17 10:04 Dose: Not Given Medical Necessity - Tobacco Use Smoking Status: Never smoker Tobacco Use: Non-smoker Assessment/Plan Active and Suspected Problems (Last Updated 06/22/17 @ 07:15 by Katie Quigley) NSTEMI (non-ST elevated myocardial infarction) (Acute) Influenza (Acute) Influenza A COPD with acute exacerbation (Acute) KARRIE (obstructive sleep apnea) (Suspected) 71-year-old female admitted on 06/16/2017 with NSTEMI, acute influenza A, acute exacerbation of COPD. Patient is status post heart cath on 06/18/2017 which there was PTCA of the mid RCA and proximal RCA. Patient was transferred from ICU to the PCU on 06/19/2016. She developed second-degree AV block type I and her Coreg was decreased to 3.125 twice daily but continues to have heart blocks with heart rates in the 30s and Coreg was subsequently discontinued. 1. Bradycardic, episodic, cardiology following to decide on possible pacemaker insertion. 2. Acute NSTEMI status post PTCA to mid RCA and proximal RCA, on aspirin, Plavix. Coreg has been held on account of type I second-degree AV block. 3. Acute systolic CHF exacerbation, EF 55%, off Coreg, on statin, on aspirin and Plavix, lasix held on account of arrhythmias. 3. Acute influenza A with acute bronchitis/acute COPD exacerbation, remains on Tamiflu, steroid taper, breathing treatments, continue the same 4. Atrial fibrillation, on Coumadin, INR is subtherapeutic, continue to monitor 5. CAD status post CABG 6. Type 2DM, sugars are stable, home insulin regimen of Levemir, and insulin sliding scale as well as Accu-Cheks 7. Hypertension, controlled 8. Hyperlipidemia on statin 9. Morbid Obesity/better sleep apnea, on oxygen at night 10. 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 Metabolic encephalopathy secondary to multiple concurrent comorbidities, patient will be reassessed in the outpatient, will need a polysomnogram on discharge 12. DVT prophylaxis -on Coumadin and Lovenox pending INR being therapeutic Code Visit Inpatient E&M: 56571 Subs Hosp L2
[2017-06-23 23:25] LABS: Glucose 485 mg/dL (74-106)
[2017-06-24] VITALS (8 sets, daily range): BP systolic 114–165; BP diastolic 54–69; PULSE 47–65; RESP 16–18; TEMP 35.9–36.7; O2SAT 94–96
[2017-06-24 03:16] LABS: Bedside Glucose 388 mg/dL (70-110)
[2017-06-24] MEDS: Enoxaparin 100 MG/ML Syringe SC (06:17)
[2017-06-24 06:48] LABS: International Normalized Ratio 2.1; Prothrombin Time (Protime)PT. 23.2 SECONDS (11.7-14.9)
[2017-06-24 06:51] LABS: Bedside Glucose 328 mg/dL (70-110)
[2017-06-24 07:06] LABS: Bedside Glucose 455 mg/dL (70-110)
[2017-06-24 07:06] LABS: Bedside Glucose > 500 mg/dL (70-110)
[2017-06-24] MEDS: Ipratropium/Albuterol Sulfate 3 ML AMPUL.NEB INHALATION (07:43)
[2017-06-24] MEDS: predniSONE 20 MG Tablet PO (08:18)
[2017-06-24] MEDS: Psyllium 1 PACKET PO (10:20)
[2017-06-24] MEDS: Clopidogrel Bisulfate 75 MG Tablet PO (10:21)
[2017-06-24] MEDS: Isosorbide Mononitrate 30 MG Tablet PO (10:21)
[2017-06-24] MEDS: Furosemide 20 MG Tablet PO (10:21)
[2017-06-24] MEDS: Aspirin E.C. 81 MG Tablet PO (10:21)
[2017-06-24] MEDS: Losartan Potassium 25 MG Tablet PO (10:21)
[2017-06-24] MEDS: Oseltamivir Phosphate 30 MG Capsule PO (10:22)
[2017-06-24] MEDS: guaiFENesin Dm 10 ML UDC PO (10:26)
--- NOTE | 2017-06-24 10:28 | PCM.PN.CARD ---
Subjectve: Patient continues to complain of cough. Heart rate is improved but not appreciably so. Heart rate in the high 50s to low 60s. No symptoms other than her dry hacking cough, no fevers or chills. Coumadin loading in progress. No chest pain or angina. Tolerating aspirin Plavix without difficulty. Objective: Vital Signs Temp Pulse Resp BP Pulse Ox 98.0 F 56 L 18 114/54 L 96 06/24/17 10:15 06/24/17 10:15 06/24/17 10:15 06/24/17 10:15 06/24/17 10:15 Oxygen Flow Rate (L/min) 2 Oxygen Delivery Method Room Air Weight: 246 lb 7.629 oz Body Mass Index (BMI) 40.8 Intake and Output for Last 24 Hours 06/22/17 06/23/17 06/24/17 23:59 23:59 23:59 Intake Total 600 / 600 1480 / 1480 Output Total 450 / 450 700 / 700 Balance 150 / 150 780 / 780 General: Awake, Alert, Oriented x 3 HEENT: PERRL, EOMI, Sclera Non Icteric Neck: Supple, Good ROM, No Lymph Node Enlargement Lungs: Clear to auscultation Cardiovascular: Irregular Rhythm, Normal S1, Normal S2, No Murmurs, No Rubs, No Gallops Vascular: No Carotid Bruits, Normal Femoral Pulses, Normal Radial Pulses, Normal Dorsalis Pedal Pulse, Normal Posterior Tibial Pulses Abdomen: Bowel Sounds Present, Soft, Non Tender, No HSM, No Organomegaly Extremities: No Cyanosis, No Clubbing, No edema Neurological: No Focal Motor or Sensory Deficit 06/23/17 22:20: Glucose 485 H* 06/24/17 06:04: PT 23.2 H, INR 2.1 Rhythm: Atrial fibrillation with slow ventricular response EKG: ECHO: Stress Test: Cardiac Cath: PCI: CT Surgery: Holter monitor: EPS: PPM: CXR: Chest CT Scan: Medical Necessity - Tobacco Use Smoking Status: Never smoker Tobacco Use: Non-smoker Assessment/Plan 1. Coronary artery disease: Patient presents with respiratory distress, wheezing, evidence of CHF by physical exam and chest x-ray, in the face of a adequately anticoagulated INR 3.1 and troponin I of 1.21. Troponin trending down now to 1.06. In addition she had new dynamic lateral ST segment changes with inferior T-wave inversion. Echocardiogram shows mild mid anterior hypokinesis but no significant lateral hypokinesis although the images are challenging. At this point would recommend continuing baby aspirin, continuing Plavix at 75 mg a day. Patient underwent left heart catheterization yesterday which demonstrated widely patent SUERO to her LAD, saphenous vein graft to her obtuse marginal, severe occlusive disease of her LAD and left circumflex, and critical disease in her mid and proximal RCA which was not bypassed. The patient underwent angioplasty and drug-eluting stenting ?2 yesterday with an excellent result. At this point I would recommend continuing baby aspirin and Plavix going forward. Patient did very well with IV diuresis, and was on Lasix 20 mg daily at home. We had tried her on 40 mg a day however she has developed atrial fibrillation with slow ventricular response and her sodium has been trending downwards. Lasix 20 mg p.o. daily restarted. Patient may be transferred to a longterm facility once things are appropriate from a pulmonary standpoint, and follow-up with either myself or Dr. Hameed. I called Dr. Hameed yesterday to give him report on the patient's condition and findings. 2. Congestive heart failure: Patient developed type I second-degree AV block with initiation of Coreg therapy. We reduced Coreg therapy to 3.125 mg p.o. twice daily and her heart rate blood pressure and rhythm and remained stable however she now has atrial fibrillation with slow ventricular response. Would recommend holding Coreg at this time. The patient has had no syncopal events at home, and would not recommend pacemaker at this time while she clears her infection. Recommend continuing losartan 25 mg's p.o. daily and titrating his up for afterload reduction and hypertension control. Also recommend continuing Imdur and continuing Lasix 40 mg p.o. daily. 3. Hyperlipidemia: Patient's LDL is 11 and HDL is 49. Patient may restart her rosuvastatin at home. 4. DVT: The patient has a history of DVT and has a [place] filter. She was on chronic Coumadin therapy prior to arrival. Coumadin restarted several days ago, now INR is 2.1. We will give 1 more dose of Lovenox today, and restart her on her Coumadin regimen going forward. We will give her 1 more dose of Coumadin 5 mg ?1 tonight followed by her usual daily dosage. 5. Atrial fibrillation: The patient had conduction disturbances prior to her atrial fibrillation deterioration. She is asymptomatic from an atrial fibrillation standpoint. She is on no beta-blockers, digoxin or calcium channel blockers, and would recommend considering dual-chamber pacemaker once her influenza has resolved, assuming her heart rate and rhythm remained bradycardic. Would not recommend pacemaker placement at this time given her infection. I discussed the option with patient as well as Dr. Clayton,, who would place the pacemaker. 6. Thank you very much for the opportunity to participate in the cardiac care of your patient. We will sign off. Please call with any questions.
[2017-06-24 11:21] LABS: Bedside Glucose 219 mg/dL (70-110)
--- NOTE | 2017-06-24 12:21 | PCM.TXEXTCAR ---
- Diet 06/18/17 12:21 Diet: Cardiac: Calorie-Controlled Is pt able to select menu?: Yes How many daily calories?: 1800 calorie - Routine Orders/Code Status Routine Lab Work: CBC - in 3 days, BMP - in 3 days, INR - daily - Wound(s) R groin Wound Type: Puncture - Therapies Weight Bearing: Weight bearing as tolerated Extremity Affected:: Bilateral Lower Physical Therapy: Eval and Treat Occupational Therapy: Eval and Treat - Allergies/Procedures Done in Hospital Allergies/Adverse Reactions: Allergies vancomycin Allergy (Verified 06/16/17 05:34) Shortness of breath Zldyetg-Iaa-Gri Reductase Inhibitor Adverse Reaction (Verified 06/16/17 05:34) Other MUSCLE ACHES Procedures: 2-D Echocardiogram, Cardiac catheterization - Type of Care/Length of Stay Estimated LOS: Convalescent Care Less Than 30 days Type of Care Needed: Skilled Rehab Potential: Good Prognosis: Good - Additional Orders/Day of Discharge Day of Discharge: 06/24/17 - Dietary and Speech Recommendations Dietitian Recommendations/Changes: As medically able, rec BRIAN to 1800 joaquina Cardiac - Follow Up Care Primary Care Physician: Carli Carballo MD [Primary Care Provider] - Please follow up with your Primary Care Physician in: within 2 weeks of discharge from rehab Please Follow Up With: Boone Wang MD When: 2 weeks
--- NOTE | 2017-06-24 12:24 | TREXTCAR_ITS ---
- Diet 06/18/17 12:21 Diet: Cardiac: Calorie-Controlled Is pt able to select menu?: Yes How many daily calories?: 1800 calorie - Routine Orders/Code Status Routine Lab Work: CBC - in 3 days, BMP - in 3 days, INR - daily - Wound(s) R groin Wound Type: Puncture - Therapies Weight Bearing: Weight bearing as tolerated Extremity Affected:: Bilateral Lower Physical Therapy: Eval and Treat Occupational Therapy: Eval and Treat - Allergies/Procedures Done in Hospital Allergies/Adverse Reactions: Allergies vancomycin Allergy (Verified 06/16/17 05:34) Shortness of breath Mnxorqn-Yxd-Top Reductase Inhibitor Adverse Reaction (Verified 06/16/17 05:34) Other MUSCLE ACHES Procedures: 2-D Echocardiogram, Cardiac catheterization - Type of Care/Length of Stay Estimated LOS: Convalescent Care Less Than 30 days Type of Care Needed: Skilled Rehab Potential: Good Prognosis: Good - Additional Orders/Day of Discharge Day of Discharge: 06/24/17 - Dietary and Speech Recommendations Dietitian Recommendations/Changes: As medically able, rec BRIAN to 1800 joaquina Cardiac - Follow Up Care Primary Care Physician: Carli Carballo MD [Primary Care Provider] - Please follow up with your Primary Care Physician in: within 2 weeks of discharge from rehab Please Follow Up With: Boone Wang MD When: 2 weeks
--- NOTE | 2017-06-24 12:24 | PCM.DC.SUM ---
Discharge Date and Diagnosis Date of Admission: 06/16/17 Date of Discharge: 06/25/17 - Primary Discharge Diagnosis Active and Suspected Problems (Last Updated 06/22/17 @ 07:15 by Katie Quigley) NSTEMI (non-ST elevated myocardial infarction) (Acute) Influenza (Acute) Influenza A COPD with acute exacerbation (Acute) KARRIE (obstructive sleep apnea) (Suspected) - Secondary Discharge Diagnosis Chronic Problems (Last Updated 06/22/17 @ 07:15 by Katie Quigley) H/O coronary artery bypass surgery (Chronic ~2012) Atherosclerosis of coronary artery bypass graft without angina pectoris (Chronic) PCI-SANDOR-Mid RCA 3.0 x 28mm Promus Synergy and SANDOR-Prox RCA 3.5 x 32 mm Promus Synergy 06/18/17 CABG 2012 COPD (chronic obstructive pulmonary disease) (Chronic) Nocturnal hypoxemia (Chronic) Presence of IVC filter (Chronic) Status post PIOTR-BSO (Chronic) she thinks she may have had uterine CA Morbid obesity (Chronic) BMI 49 Lung nodules (Chronic) History of DVT (deep vein thrombosis) (Chronic) on coumadin lifelong Diabetes mellitus (Chronic) diabetic foot ulcerations Anticoagulation goal of INR 2 to 3 (Chronic) Physical debility (Chronic) Constipation due to pain medication (Chronic) Hospital Course and Treatment Imaging Results: Clinical Impression(s) from Imaging Studies Chest X-Ray 06/16/17 05:43 IMPRESSION: Free soft interstitial prominence, slightly more left compared to right. Possible inflammatory process rather than asymmetric vascular congestion. Suspect underlying COPD component. Postsurgical changes as above. Electronically Signed: Suze Schuster MD at 6:48 EDT , Service support , Chest X-Ray 06/21/17 11:25 IMPRESSION: Mild increased markings at the lung bases suggesting bibasilar scarring. Electronically Signed: Cory Babin MD at 14:54 EDT Tel [phone], Service support , Cardiology Operations: None Procedures: 2-D Echocardiogram, Cardiac catheterization Summary of Care Provided: 71-year-old female admitted on 06/16/2017 with NSTEMI, acute influenza A, acute exacerbation of COPD. Patient is status post heart cath on 06/18/2017 with PTCA of the mid RCA and proximal RCA. Patient was transferred from ICU to the PCU on 06/19/2016. She developed second-degree AV block type I and her Coreg was decreased to 3.125 twice daily but continues to have heart blocks with heart rates in the 30s and Coreg was subsequently discontinued. 1. Bradycardic, episodic, HR went down as low as 27. Off Coreg, remained around 50s. Plan from cardiology is to re-evaluate in a acouple of weeks and then if persistently bradycardic, will work on pacemaker placement. 2. Acute NSTEMI status post PTCA to mid RCA and proximal RCA, on aspirin, Plavix. Coreg has been held on account of type I second-degree AV block. 3. Acute systolic CHF exacerbation, EF 55%, off Coreg, on statin, on aspirin and Plavix, resumed on lasix. 3. Acute influenza A with acute bronchitis/acute COPD exacerbation with hypoxia, on Tamiflu, steroid taper, breathing treatments 4. Atrial fibrillation, on Coumadin, INR is subtherapeutic, continued on coumadin 5. CAD status post CABG 6. Type 2DM, sugars are stable, home insulin regimen of Levemir, and insulin sliding scale as well as Accu-Cheks 7. Hypertension, controlled 8. Hyperlipidemia on statin 9. Morbid Obesity/better sleep apnea, on oxygen at night 10. 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 Metabolic encephalopathy secondary to multiple concurrent comorbidities, resolved at the time of discharged; recommended to have a polysomnogram on discharge Home Medications: Medications to take at Discharge Aspirin [Adult Low Dose Aspirin EC] 81 mg PO DAILY 06/16/17 Cholecalciferol (Vitamin D3) [Optimal D3] 50,000 unit PO QWEEK 06/16/17 Insulin Aspart [Novolog Vial] 13 unit SQ TID 06/16/17 Insulin Glargine [Lantus SoloStar Pen] 48 units SC QHS 06/16/17 Lidocaine [Aspercreme] 1 each TP DAILY 06/16/17 Losartan Potassium 25 mg PO DAILY 06/16/17 Nitroglycerin [Nitrostat] 0.4 mg SUBLINGUAL Q5M PRN 06/16/17 Potassium Chloride [K-Dur] 20 meq PO DAILY 06/16/17 Rosuvastatin Calcium [Crestor] 20 mg PO QHS 06/16/17 Clopidogrel Bisulfate [Plavix] 75 mg PO DAILY tablet 06/24/17 Furosemide [Lasix] 40 mg PO DAILY #30 tablet 06/24/17 Guaifenesin Dm [Robitussin Dm] 10 ml PO Q6H PRN PRN udc 06/24/17 Insulin Aspart [Novolog Flexpen] 12 units SC TIDAC flexpen 06/24/17 Insulin Aspart [Novolog Flexpen] See Protocol SC TIDAC flexpen 06/24/17 Ipratropium/Albuterol Sulfate [Duoneb] 3 ml INHALATION Q6HWA.RT ampul.neb 06/24/17 Isosorbide Mononitrate [Imdur] 30 mg PO DAILY tablet 06/24/17 Nitroglycerin [Nitrostat] 0.4 mg SUBLINGUAL Q5M PRN tablet 06/24/17 Prednisone 10 mg PO DAILY #15 tablet 06/24/17 Warfarin [Coumadin] 5 mg PO DAILY@1700 tablet 06/24/17 traMADol [Ultram] 50 mg PO BID PRN #10 tab 06/24/17 Following Prescrptions Were Given to Patient: Furosemide [Lasix] 40 mg PO DAILY #30 tablet Prednisone 10 mg PO DAILY #15 tablet traMADol [Ultram] 50 mg PO BID PRN #10 tab PRN Reason: Pain Primary Care Physician: Carli Carballo MD [Primary Care Provider] - Please follow up with your Primary Care Physician in: within 2 weeks of discharge from rehab Please Follow Up With: Boone Wang MD When: 2 weeks Medical Necessity - Tobacco Use Smoking Status: Never smoker Tobacco Use: Non-smoker Meaningful Use Info Meaningful Use Diagnoses (Choose all that apply): AMI - AMI Aspirin given w/in 24hrs of arrival?: Yes ASA at discharge?: Yes Statins at discharge?: Yes Yossi/ARB at discharge?: Yes Beta Debi at discharge?: No Reason Beta Debi not ordered:: Hypotension Done w/ Acute NH measure.: Yes Code Visit Inpatient E&M: 97700 Disch Hosp
--- NOTE | 2017-06-24 12:49 | CASEMGMT ---
Patient is ready for d/c to [facility]. CHRISSIE faxed orders to [place]. Called [facility] to arrange transport via van, but they could not do it until 4:30p. CHRISSIE called [facility] and they said patient would have to go by cot due to being on oxygen. CHRISSIE arranged picker/puller for 2p via cot. CHRISSIE notified RN and patient. CHRISSIE also called Natasha at [facility] and let her know this information. All in agreement with d/c plan. Plan: d/c to [facility] under skilled level of care. [facility] transported her via cot as [facility] said she had to go by cot due to her O2.
== END 2017-06-24 15:00 | disposition skilled nursing facility (03) | DRG 246 ==
LOC: ED 06:38 → ICU 08:51 → PCU 06-18 21:15
PROVIDERS: Family Medicine; Internal Medicine Cardiovascular Disease; Internal Medicine Critical Care Medicine; Admitting Provider Internal Medicine; Emergency Provider Emergency Medicine; Family Provider Internal Medicine; PCP Internal Medicine; Visit Provider Internal Medicine
DX: I21.4 Non-ST elevation (NSTEMI) myocardial infarction (principal); I50.23 Acute on chronic systolic (congestive) heart failure; G93.41 Metabolic encephalopathy; J44.0 Chronic obstructive pulmonary disease with (acute) lower respiratory infection; J44.1 Chronic obstructive pulmonary disease with (acute) exacerbation; Z68.41 Body mass index [BMI] 40.0-44.9, adult; Z99.81 Dependence on supplemental oxygen; E66.01 Morbid (severe) obesity due to excess calories; I48.91 Unspecified atrial fibrillation; I44.1 Atrioventricular block, second degree; E11.9 Type 2 diabetes mellitus without complications; I25.10 Atherosclerotic heart disease of native coronary artery without angina pectoris; J10.1 Influenza due to other identified influenza virus with other respiratory manifestations; J20.9 Acute bronchitis, unspecified; I11.0 Hypertensive heart disease with heart failure; L27.0 Generalized skin eruption due to drugs and medicaments taken internally; T50.905A Adverse effect of unspecified drugs, medicaments and biological substances, initial encounter; Z79.4 Long term (current) use of insulin; Z86.718 Personal history of other venous thrombosis and embolism; Z79.899 Other long term (current) drug therapy; Z95.1 Presence of aortocoronary bypass graft; Z95.828 Presence of other vascular implants and grafts; Z79.01 Long term (current) use of anticoagulants; Z89.432 Acquired absence of left foot; Z86.711 Personal history of pulmonary embolism; R00.1 Bradycardia, unspecified; G47.33 Obstructive sleep apnea (adult) (pediatric); R09.02 Hypoxemia; E78.5 Hyperlipidemia, unspecified
CPT/HCPCS: 36415; 71045; 71046; 80048; 80053; 80061; 81001; 82550; 82947; 82962; 83605; 83735; 83880; 84484; 85025; 85027; 85347; 85610; 85730; 87040; 87086; 87641; 87804; 92928; 93005; 93306; 93458; 93798; 94640; 94667; 94668; 97110; 97116; 97162; 97165; 97530; 97535; 99152; 99153; 99285; C1760; J7030; J7040; Q9957; Q9967; A4216; C1725; C1769; C1874; C1887; C1894; C8929; C9600; J1940; J2310

== ENCOUNTER 2017-08-18 18:38 | Outpatient (RCR) | payer MEDICARE, MEDICAID, SELFPAY ==
[2017-06-18 11:32] VITALS: BMI 39.4
[2017-08-18 18:53] LABS: Anion Gap 5 (5-15); BUN 29 mg/dL (7-18); Calcium,Total 9.4 mg/dL (8.5-10.1); Chloride 101 mmol/L (98-107); Creatinine, Serum 1.21 mg/dL (0.55-1.02); EST Glomerular Filtration Rate 47 mL/min (>60); Est Glom Filt Rate - Afr Amer 56 mL/min (>60); Glucose 89 mg/dL (74-106); Potassium 3.9 mmol/L (3.5-5.1); Sodium Level 140 mmol/L (136-145)
== END 2017-09-02 23:59 ==
LOC: HHLAB 18:38
PROVIDERS: Family Provider Internal Medicine; PCP Internal Medicine; Visit Provider Internal Medicine
DX: E11.42 Type 2 diabetes mellitus with diabetic polyneuropathy (principal); J44.1 Chronic obstructive pulmonary disease with (acute) exacerbation; I25.10 Atherosclerotic heart disease of native coronary artery without angina pectoris; Z51.81 Encounter for therapeutic drug level monitoring
CPT/HCPCS: 80048

== ENCOUNTER → 2017-10-15 15:13 | Outpatient (CLI) | payer MEDICARE, MEDICAID, SELFPAY ==
[2017-06-18 11:32] VITALS: BMI 39.4
[2017-10-15 16:20] LABS: Absolute Lymphocyte Count 1.49 X10^3/ul (0.83-4.51); Absolute Neutrophil Count 4.9 X10^3/uL (2.0-7.7); Basophil# 0.01 X10^3/uL; Basophil% 0.1 % (0-1); Eosinophil# 0.15 X10^3/uL; Eosinophils% 2.1 % (0-5); Hematocrit 43.8 % (37-47); Lymphocyte # 1.49 X10^3/ul (4.0); Mean Corp Hgb Conc 29.7 g/gl (32-36); Mean Corpuscular Hgb 26.6 pg (27.0-32.0); Mean Corpuscular Volume 89.8 fL (81-99); Mean Platelet Vol. 9.8 fl (6.2-12.0); Monocyte# 0.55 X10^3/uL; Monocyte% 7.8 % (0-10); Neutrophil # 4.88 X10^3/uL (2.7-7.7); Neutrophil % 68.9 % (47-70); Platelet Count 187 K/mm3 (150-450); RBC Distribution Width CV 15.4 % (11.6-14.6); RBC Distribution Width SD 50.3 fl (35.1-43.9); Red Blood Count 4.88 M/mm3 (4.2-5.4); White Blood Count 7.1 K/mm3 (4.4-11.0)
[2017-10-15 16:25] LABS: POSITIVE COUNT NO; POSITIVE DIFFERENTIAL NO; POSITIVE MORPHOLOGY NO
[2017-10-15 16:47] LABS: Prothrombin Time (Protime)PT. 23.1 SECONDS (11.7-14.9)
[2017-10-15 17:10] LABS: Anion Gap 7 (5-15); BUN 28 mg/dL (7-18); BUN/Creat Ratio 25.7 RATIO (10-20); Calcium,Total 8.9 mg/dL (8.5-10.1); Chloride 104 mmol/L (98-107); Creatinine, Serum 1.09 mg/dL (0.55-1.02); EST Glomerular Filtration Rate 53 mL/min (>60); Est Glom Filt Rate - Afr Amer 64 mL/min (>60); Glucose 111 mg/dL (74-106); Potassium 3.7 mmol/L (3.5-5.1); Sodium Level 141 mmol/L (136-145); T4 Free Direct 0.98 ng/dL (0.76-1.46); Thyroid Stim Hormone (TSH) 4.41 uIU/mL (0.358-3.74)
== END ==
PROVIDERS: Family Provider Internal Medicine; PCP Internal Medicine; Visit Provider Nurse Practitioner Family
DX: I25.810 Atherosclerosis of coronary artery bypass graft(s) without angina pectoris (principal); I48.0 Paroxysmal atrial fibrillation; I11.0 Hypertensive heart disease with heart failure; I50.32 Chronic diastolic (congestive) heart failure; R53.83 Other fatigue; Z95.5 Presence of coronary angioplasty implant and graft
CPT/HCPCS: 36415; 80048; 84439; 84443; 85025; 85610

== ENCOUNTER 2018-07-31 10:39 | Inpatient (IN) | payer MEDICARE, MEDICAID, SELFPAY ==
[2017-06-18 11:32] VITALS: BMI 39.4
[2018-07-31] VITALS (13 sets, daily range): BP systolic 106–165; BP diastolic 45–112; PULSE 62–79; RESP 16–20; TEMP 36.8–37.9; O2SAT 85–99; BMI 39.9; BMI 40.3; BMI 40.4
--- NOTE | 2018-07-31 10:58 | EKG12_ITS ---
Test Reason : GEN ILLNESS Blood Pressure : / mmHG Vent. Rate : 072 BPM Atrial Rate : 074 BPM P-R Int : 000 ms QRS Dur : 080 ms QT Int : 402 ms P-R-T Axes : 000 009 -63 degrees QTc Int : [address] & T wave abnormality, consider inferior ischemia ST & T wave abnormality, consider anterolateral ischemia Abnormal ECG Confirmed by EUFEMIA BABIN, BENJAMIN ([id number]), food expeditor LYNDA MARTINEZ ([id number]) on 08/02/2018 11:09:33 AM Referred By: ERNA Confirmed By:BENJAMIN FALL MD
--- NOTE | 2018-07-31 11:05 | RAD_ITS ---
STUDY: X-RAY CHEST REASON FOR EXAM: Female, 72 years old. Shortness of breath. TECHNIQUE: Single AP portable view of the chest. COMPARISON: Chest radiograph dated June 21, 2017. FINDINGS: The patient has a left-sided intracardiac pacemaker. Cardiac monitoring leads are present. Patient has had a sternotomy. The lungs are hyperexpanded. There appears to be right upper lobe airspace consolidation probably representing pneumonia. Bronchovascular markings are prominent in both lungs. There is no demonstrated pleural abnormality. There is mild cardiac enlargement. There are calcified mediastinal and hilar lymph nodes. There is prominence of the pulmonary hilar arteries without peripheral pulmonary vascular congestion. There is atherosclerotic calcification of the aortic arch with tortuosity. There is demineralization of the osseous structures. Normal visualized ribs, clavicles, and shoulders. There is no demonstrated abnormality of the visualized soft tissue structures of the upper abdomen. RAD/Chest 1 View (Portable) IMPRESSION: Right upper lobe airspace consolidation probably represents pneumonia. Electronically Signed: Sintia Osorio MD at 11:20 EDT , Service support ,
[2018-07-31 11:17] LABS: Bacteria 0 SEEN /hpf (None Seen); Mucous, Urine 0 SEEN /hpf (<or=2+); Red Blood Cells-Urine 0 SEEN /hpf (0-5); White Blood Cells 0 SEEN /hpf (0-5)
--- NOTE | 2018-07-31 11:30 | EKG12_ITS ---
Test Reason : REPEAT Blood Pressure : / mmHG Vent. Rate : 071 BPM Atrial Rate : 202 BPM P-R Int : 000 ms QRS Dur : 084 ms QT Int : 414 ms P-R-T Axes : 000 086 -69 degrees QTc Int : 449 ms Atrial fibrillation with occasional PVC's ST & T wave abnormality, consider anterolateral ischemia Abnormal ECG Confirmed by EUFEMIA BABIN, BENJAMIN ([id number]), editor at large LYNDA MARTINEZ ([id number]) on 08/02/2018 11:10:03 AM Referred By: ERNA Confirmed By:BENJAMIN FALL MD
[2018-07-31] MEDS: 0.9% Normal Saline 1,000 ML 150 ML IV (11:31)
[2018-07-31 11:33] LABS: Color, Urine Yellow (Yellow); Glucose, Dipstick Normal (Normal); Ketone-Dipstick Negative (Negative); Leukocyte Esterase-Dipstick Negative /ul (Negative); Nitrite-Dipstick Negative (Negative); Occult Blood-Urine 50 /ul (Negative); Protein-Dipstick 100 mg/dl (Negative); Urine Bilirubin Dipstick Negative (Negative); Urine Clarity Clear (Clear); Urine Urobilinogen 1 mg/dl (Normal); Urine pH 6.5 (5.0 - 8.0)
[2018-07-31 11:36] LABS: Absolute Neutrophil Count 17.6 X10^3/uL (2.0-7.7); Basophil# 0.01 X10^3/uL; Eosinophil# 0.02 X10^3/uL; Eosinophils% 0.1 % (0-5); Hematocrit 42.5 % (37-47); Hemoglobin 13.5 g/dl (12.0-15.0); Mean Corp Hgb Conc 31.8 g/gl (32-36); Mean Corpuscular Hgb 29.8 pg (27.0-32.0); Mean Corpuscular Volume 93.8 fL (81-99); Mean Platelet Vol. 9.2 fl (6.2-12.0); Monocyte# 1.64 X10^3/uL; Monocyte% 8.2 % (0-10); Neutrophil # 17.56 X10^3/uL (2.7-7.7); Neutrophil % 87.5 % (47-70); Platelet Count 167 K/mm3 (150-450); RBC Distribution Width CV 15.6 % (11.6-14.6); RBC Distribution Width SD 53.7 fl (35.1-43.9); Red Blood Count 4.53 M/mm3 (4.2-5.4); White Blood Count 20.1 K/mm3 (4.4-11.0)
[2018-07-31 11:38] LABS: Differential Indicated SCAN CRITERIA MET; POSITIVE COUNT NO; POSITIVE DIFFERENTIAL YES; POSITIVE MORPHOLOGY NO
[2018-07-31 11:40] LABS: International Normalized Ratio 1.9; Prothrombin Time (Protime)PT. 21.7 SECONDS (11.7-14.9)
[2018-07-31 11:43] LABS: Squamous Epithelial Cells - UA 0-5 SEEN /hpf (5-10)
[2018-07-31 11:48] LABS: Anion Gap 6 (5-15); BUN 31 mg/dL (7-18); BUN/Creat Ratio 25.6 RATIO (10-20); Calcium,Total 8.9 mg/dL (8.5-10.1); Chloride 99 mmol/L (98-107); Creatinine, Serum 1.21 mg/dL (0.55-1.02); EST Glomerular Filtration Rate 47 mL/min (>60); Est Glom Filt Rate - Afr Amer 56 mL/min (>60); Estimated Creatinine Clearance 38.37 ml/min; Glucose 205 mg/dL (74-106); Potassium 4.3 mmol/L (3.5-5.1); Sodium Level 136 mmol/L (136-145)
[2018-07-31 11:56] LABS: Differential Comment SCANNED
[2018-07-31 11:59] LABS: Lactic Acid 2.2 mmol/L (0.4-2.0)
--- NOTE | 2018-07-31 12:01 | NURSING ---
CALL FROM LAB , LACTIC ACID 2.2 , DR. UMANZOR MADE AWARE
[2018-07-31] MEDS: Ceftriaxone 1 GM/50 ML BAG IV ×2 (12:10→21:40)
--- NOTE | 2018-07-31 12:25 | ED.VISSUMM ---
- ER Visit Summary Date of Service: 07/31/18 Chief Complaint: Fever History of Present Illness: The patient is a 72 F with fever up to 100.3 this morning along with confusion. She had a dry cough and shortness of breath recently. She wears O2 at night. Family did not check her oxygen saturation this morning when she was confused. Is a chronic wound to her medial right lower leg that has not been giving her trouble recently. Past history significant for MS, CHF, COPD, DVT, paroxysmal A. fib. She is an IVC filter and is on Coumadin. Physical Examination: Blood pressure is 147/112, temperature 98.2, heart rate 79, respiratory rate 16, pulse ox 85% on room air. Patient is helped into the bed. Oxygen is placed and sats are 90 to 94% on 2 L. Head and neck examination unremarkable. Heart is slightly irregular. Lung sounds are diminished at the bases. Abdomen is soft, obese, nontender. Extremity examination was 1 x 3 cm wound to the medial right lower leg. It has clean wound edges. Test Results: EKG is A. fib at 72. She has inferior and lateral ST depression and T wave inversions. Compared to prior study from June 2017 inferior T inversions were noted at that time. Lateral leads were significant for T wave flattening. CBC was a white count of 20.1 with 87% neutrophils. Chemistry studies reveal glucose of 205, BUN 31, creatinine 1.21. INR is 1.9. Urinalysis is normal. Troponin is 0.039. Lactate is 2.2. Chest x-ray reveals a right upper lobe pneumonia. Blood and wound culture were sent. Emergency Department Course and Treatment: Patient is given IV fluids, Rocephin, and Zithromax. She remains afebrile here. She will be admitted for further treatment. Treatment Plan: [] Disposition: Admit Impression: 1. Pneumonia 2. Severe sepsis This note was generated with [employer] dictation software. It may contain incorrect words, spelling, and punctuation that were not noted in review of the chart prior to signing ED Disposition - Plan for ED Patient: Referrals: Carli Carballo MD [Primary Care Provider] -
--- NOTE | 2018-07-31 12:28 | ED.DCSUM_ITS ---
- ER Visit Summary Date of Service: 07/31/18 Chief Complaint: Fever History of Present Illness: The patient is a 72 F with fever up to 100.3 this morning along with confusion. She had a dry cough and shortness of breath recently. She wears O2 at night. Family did not check her oxygen saturation this morning when she was confused. Is a chronic wound to her medial right lower leg that has not been giving her trouble recently. Past history significant for MT, CHF, COPD, DVT, paroxysmal A. fib. She is an IVC filter and is on Coumadin. Physical Examination: Blood pressure is 147/112, temperature 98.2, heart rate 79, respiratory rate 16, pulse ox 85% on room air. Patient is helped into the bed. Oxygen is placed and sats are 90 to 94% on 2 L. Head and neck examination unremarkable. Heart is slightly irregular. Lung sounds are diminished at the bases. Abdomen is soft, obese, nontender. Extremity examination was 1 x 3 cm wound to the medial right lower leg. It has clean wound edges. Test Results: EKG is A. fib at 72. She has inferior and lateral ST depression and T wave inversions. Compared to prior study from June 2017 inferior T inversions were noted at that time. Lateral leads were significant for T wave flattening. CBC was a white count of 20.1 with 87% neutrophils. Chemistry studies reveal glucose of 205, BUN 31, creatinine 1.21. INR is 1.9. Urinalysis is normal. Troponin is 0.039. Lactate is 2.2. Chest x-ray reveals a right upper lobe pneumonia. Blood and wound culture were sent. Emergency Department Course and Treatment: Patient is given IV fluids, Rocephin, and Zithromax. She remains afebrile here. She will be admitted for further treatment. Treatment Plan: [] Disposition: Admit Impression: 1. Pneumonia 2. Severe sepsis This note was generated with [employer] dictation software. It may contain incorrect words, spelling, and punctuation that were not noted in review of the chart prior to signing ED Disposition - Plan for ED Patient: Referrals: Carli Carballo MD [Primary Care Provider] -
--- NOTE | 2018-07-31 12:33 | HP.PCM_ITS ---
History of Present Illness Date of Admission: 07/31/18 Chief Complaint: geneal malaise, cough, shortness of breath The patient is a 72 year old F with an extensive past medical history as listed. She was admitted through the ED on 07/31/2018 with a complaint of general feeling of malaise for 2 days. She had assisted fever and chills and a dry cough. She was also noted to be getting progressively short of breath. Patient has oxygen at home which she uses intermittently at night but has not used it in a while. However last night, have him not to put oxygen on her as she was getting very short of breath and was also getting progressively confused. Her [id number] checked her temperature at home and was noted to be 100.3 Fahrenheit. On admission in the ED, she was afebrile but saturation dropped to the 80s and she required 2 L of oxygen to bring saturation above 90%. She was tachypneic and also significant for creatinine of 1.2 on a white cell count of 20.1. Lactic acid was also 2.2 and troponin was 0.039. EKG done showed evidence of ST depression in the anterolateral leads. Chest x-ray done showed evidence of right upper lobe airspace consolidation likely pneumonia. She has been admitted to manage with sepsis due to pneumonia as well as acute hypoxic respiratory insufficiency due to pneumonia. [] Past Medical History Past Medical History (Chronic Problems): Chronic Problems (Last Reviewed 04/12/18 @ 18:45 by Radha Lind) Mitral valve disease (Chronic) Diastolic congestive heart failure (Chronic) Paroxysmal atrial fibrillation (Chronic) H/O coronary artery bypass surgery (Chronic ~2012) CABG 2012 with SUERO to LAD and SVG to OM 1; Atherosclerosis of coronary artery bypass graft without angina pectoris (Chronic) PCI-SANDOR-Mid RCA 3.0 x 28mm Promus Synergy and SANDOR-Prox RCA 3.5 x 32 mm Promus Synergy 06/18/17; CABG 2012 COPD (chronic obstructive pulmonary disease) (Chronic) Nocturnal hypoxemia (Chronic) Presence of IVC filter (Chronic) Status post PIOTR-BSO (Chronic) she thinks she may have had uterine CA Morbid obesity (Chronic) BMI 49 Lung nodules (Chronic) History of DVT (deep vein thrombosis) (Chronic) on coumadin lifelong Diabetes mellitus (Chronic) diabetic foot ulcerations Anticoagulation goal of INR 2 to 3 (Chronic) Physical debility (Chronic) Constipation due to pain medication (Chronic) Medical History: Medical History (Last Reviewed 04/12/18 @ 18:45 by Radha Lind) Diastolic congestive heart failure (Chronic) I50.30 Paroxysmal atrial fibrillation (Chronic) I48.0 Atherosclerosis of coronary artery bypass graft without angina pectoris (Chronic) I25.810 PCI-SANDOR-Mid RCA 3.0 x 28mm Promus Synergy and SANDOR-Prox RCA 3.5 x 32 mm Promus Synergy 06/18/17; CABG 2012 NSTEMI (non-ST elevated myocardial infarction) (Acute) I21.4 Influenza (Acute) J11.1 Influenza A COPD with acute exacerbation (Acute) J44.1 COPD (chronic obstructive pulmonary disease) (Chronic) J44.9 KARRIE (obstructive sleep apnea) (Suspected) G47.33 Nocturnal hypoxemia (Chronic) G47.34 Presence of IVC filter (Chronic) Z95.828 Morbid obesity (Chronic) E66.01 BMI 49 Lung nodules (Chronic) History of DVT (deep vein thrombosis) (Chronic) Z86.718 on coumadin lifelong Diabetes mellitus (Chronic) E11.9 diabetic foot ulcerations Anticoagulation goal of INR 2 to 3 (Chronic) Z51.81, Z79.01 Physical debility (Chronic) R53.81 Constipation due to pain medication (Chronic) K59.03 Allergies levofloxacin [From Levaquin] Allergy (Verified 07/31/18 11:30) Other vancomycin Allergy (Verified 07/31/18 11:30) Shortness of breath simvastatin [From Zocor] Adverse Reaction (Verified 07/31/18 11:30) Other Jrtwoen-Iqh-Avc Reductase Inhibitor Adverse Reaction (Verified 07/31/18 11:30) Other MUSCLE ACHES Home Medications: Ambulatory Orders Medication Instructions Recorded Aspirin [Adult Low Dose Aspirin EC] 81 mg PO DAILY 06/16/17 Cholecalciferol (Vitamin D3) 50,000 unit PO BUCK 06/16/17 [Optimal D3] Nitroglycerin [Nitrostat] 0.4 mg SUBLINGUAL Q5M PRN 06/16/17 Potassium Chloride [K-Dur] 20 meq PO BID 06/16/17 Rosuvastatin Calcium [Crestor] 20 mg PO QHS 06/16/17 Ipratropium/Albuterol Sulfate 3 ml INHALATION Q6HWA.RT ampul.neb 06/24/17 [Duoneb] clopidogrel 75 mg tablet 75 mg PO DAILY #90 tab 07/12/17 furosemide 20 mg tablet 180 mg PO BID tab 07/12/17 gabapentin 300 mg capsule 300 mg PO TID cap 07/12/17 Ascorbic Acid [Vitamin C] 500 mg PO DAILY 07/31/18 Famotidine [Pepcid] 20 mg PO BID 07/31/18 Insulin Aspart [Novolog Flexpen See Protocol SC TIDCM 07/31/18 ([facility])] Insulin Aspart [Novolog Flexpen] 10 units SC TIDAC 07/31/18 Insulin Glargine,Hum.rec.anlog 48 unit SQ QHS 07/31/18 [Basaglar Kwikpen U-100] Warfarin [Coumadin ([facility])] 1.5 mg PO DAILY 07/31/18 Surgical History: Surgical History (Last Reviewed 04/12/18 @ 18:46 by Radha Lind) H/O coronary artery bypass surgery (Chronic) Onset Date: ~2012 Z95.1 CABG 2012 with SUERO to LAD and SVG to OM 1; History of coronary artery stent placement (Acute) Onset Date: ~06/18/17 Z95.5 PCI-SANDOR-Mid RCA 3.0 x 28mm Promus Synergy and SANDOR-Prox RCA 3.5 x 32 mm Promus Synergy 06/18/17 Status post IPOTR-BSO (Chronic) Z90.710, Z90.722, Z90.79 she thinks she may have had uterine CA Surgical History: cataract, cholecystectomy, coronary bypass surgery, hysterectomy - Possibly for endometrial cancer-patient is a poor historian and cannot really remember, tonsillectomy, - - Transmetatarsal amputation of the left foot for infection 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 Smoking Status: Never smoker - *Family History Maternal Family History: Family History (Last Reviewed 04/12/18 @ 18:46 by Radha Lind) Brother pacemaker Sister CHF (congestive heart failure) Mother Diabetes Brother Cancer Brother Cancer Diabetes History Items: No pertinent history Paternal Family History: Family History (Last Reviewed 04/12/18 @ 18:46 by Radha Lind) Brother pacemaker Sister CHF (congestive heart failure) Mother Diabetes Brother Cancer Brother Cancer Diabetes History Items: No pertinent history Review of Systems Constitutional: Reports: Anorexia, Chills, Fever, Malaise, Weakness, Fatigue. Denies: Night Sweats Eyes: Denies: Blurred vision HEENT: Denies: Head Aches, Sinus Congestion, Sinus Drainage Cardiovascular: Denies: Chest Pain, Chest Pressure, Chest Tightness, Edema, Orthopnea, Palpitations, Paroxysmal Noc. Dyspnea, Syncope Respiratory: Reports: Cough, Shortness of Breath, Shortness of breath at rest, Shortness of breath upon exertion. Denies: Pleuritic Pain, Sputum production, Wheezing Gastrointestinal: Denies: Abdominal Pain, Nausea, Vomiting Genitourinary: Denies: Dysuria Musculoskeletal: Denies: Joint Pain, Joint Tenderness Skin: Denies: Rash, Wounds Neurological: Reports: Confusion. Denies: Focal weakness, Numbness, Tingling Psychiatric: Denies: Anxiety, Depression, Homicidal Ideations, Suicidal Ideations Hematologic/ Lymphatic: Denies: Easy Bruising, Easy Bleeding VTE Information - Inpt Only VTE Present on Admission: No VTE Pharm Prophylaxis ordered?: Yes - Physical Exam General: Alert, Cooperative, No apparent distress, Confused - but able to answer questions HEENT: Atraumatic, PERRLA, EOMI, Normocephalic Oral: Dry Mucosa Neck: Supple, No JVD, Negative Carotid Bruits Lungs: - - decreased breath sounds bibasally, with coarse crackles in mid and lower lung peña bilaterally. on 2L of oxygen by nasal canula Cardiovascular: Regular rate, Regular Rhythm, Normal S1, Normal S2, No murmurs Abdomen: Bowel Sounds Present, Soft, Non Tender, Non-Distended, No Hepato- splenomegaly Extremities: No clubbing, No cyanosis, - - mild bipedal pitting edema Skin: - - superficial ulceration on right spencer, due to ruptured blisters. RLE wrapped in SERENITY bandage Musculoskeletal: No Tenderness to Palpation of Joints or Extremities Lymphatic: No Cervical, Supraclavicular, or Inguinal Adenopathy Neurological: Cranial nerves II-XII grossly intact, Deep Tendon Reflexes 2+/4 and Symmetrical, Neuro grossly intact, - - has peripheral neuropathy due to diabetes mellitus Psych/Mental Status: - - confused and restless Vital Signs Temp Pulse Resp BP Pulse Ox 98.5 F 76 20 H 110/78 96 07/31/18 12:00 07/31/18 12:00 07/31/18 12:00 07/31/18 12:00 07/31/18 12:00 Oxygen Flow Rate (L/min) 2 Oxygen Delivery Method Nasal Cannula Weight: 240 lb Body Mass Index (BMI) 39.9 Finger Stick Blood Glucose 85 Laboratory Tests Past 24 Hrs 07/31/18 07/31/18 07/31/18 11:10 11:15 11:15 WBC 20.1 H RBC 4.53 Hgb 13.5 Hct 42.5 MCV 93.8 MCH 29.8 MCHC 31.8 L RDW 15.6 H RDW Differential 53.7 H Plt Count 167 MPV 9.2 Immature Gran % (Auto) 0.200 Neut % (Auto) 87.5 H Lymph % (Auto) 4.0 L [place] % (Auto) 8.2 Eos % (Auto) 0.1 Baso % (Auto) 0.0 Absolute Neuts (auto) 17.6 H Absolute Lymphs (auto) 0.80 L Total Counted Not Reportable Differential Comment SCANNED PT 21.7 H INR 1.9 Sodium Potassium Chloride Carbon Dioxide Anion Gap BUN Creatinine Estim Creat Clear Calc Est GFR (MDRD) Af Amer Est GFR (MDRD) Non-Af BUN/Creatinine Ratio Glucose Lactic Acid Calcium Troponin I Urine Color Yellow Urine Clarity Clear Urine pH 6.5 Ur Specific [place] 1.010 Urine Protein 100 H Urine Glucose (UA) Normal Urine Ketones Negative Urine Occult Blood 50 H Urine Nitrite Negative Urine Bilirubin Negative Urine Urobilinogen 1 H Ur Leukocyte Esterase Negative Urine RBC 0 SEEN Urine WBC 0 SEEN Ur Squamous Epith Cells 0-5 SEEN Urine Bacteria 0 SEEN Urine Mucus 0 SEEN 07/31/18 07/31/18 11:15 11:15 WBC RBC Hgb Hct MCV MCH MCHC RDW RDW Differential Plt Count MPV Immature Gran % (Auto) Neut % (Auto) Lymph % (Auto) [place] % (Auto) Eos % (Auto) Baso % (Auto) Absolute Neuts (auto) Absolute Lymphs (auto) Total Counted Differential Comment PT INR Sodium 136 Potassium 4.3 Chloride 99 Carbon Dioxide 31.0 Anion Gap 6 BUN 31 H Creatinine 1.21 H Estim Creat Clear Calc 38.37 Est GFR (MDRD) Af Amer 56 L Est GFR (MDRD) Non-Af 47 L BUN/Creatinine Ratio 25.6 H Glucose 205 H Lactic Acid 2.2 H Calcium 8.9 Troponin I 0.039 Urine Color Urine Clarity Urine pH Ur Specific [place] Urine Protein Urine Glucose (UA) Urine Ketones Urine Occult Blood Urine Nitrite Urine Bilirubin Urine Urobilinogen Ur Leukocyte Esterase Urine RBC Urine WBC Ur Squamous Epith Cells Urine Bacteria Urine Mucus Diagnostic Data Chest X-Ray 07/31/18 11:05 IMPRESSION: Right upper lobe airspace consolidation probably represents pneumonia. Electronically Signed: Sintia Osorio MD at 11:20 EDT , Service support , Assessment/Plan All Active Problems (Last Reviewed 04/12/18 @ 18:45 by Radha Lind) History of coronary artery stent placement (Acute ~06/18/17) NSTEMI (non-ST elevated myocardial infarction) (Acute) Influenza (Acute) COPD with acute exacerbation (Acute) Anemia (Resolved) 72-year-old female admitted with a complaint of generalized malaise with fever and shortness of breath. 1. Severe sepsis due to community acquired pneumonia * SIRS criteria was 2/4 (tachypnea and leucocytosis) with elevated lactic acid of 2.2 * CXR showed right upper lobe airspace consolidation * admit to PCU with telemetry * hydrate with IVF per sepsis protocl and recheck lactic acid * start IV ceftriaxone and IV azithromycin * give breathing treatments * titrate oxygen to maintain sats>90% * check sputum culture, blood culture and respiratory panel * 2. Acute on chronic hypoxic respiratory insufficiency due to community acquired pneumonia * usually wears 2L of oxygen at home as needed, mainly at night * saturation was in 80s on admission, and she required supplemental oxygenation * titrate oxygen to maintain sats>90% * give breathing treatments * 3. Lactic acidosis: likely due to pneumonia. Hydrate with IVF and repeat per sepsis protocol 4. Bradycardia s/p recent pacemaker placement: stable. Will monitor. To follow up with veterinarian helper in [place] upon discharge 5. Community acquired pneumonia: as under 1 6. Acute metabolic encephalopathy due to pneumonia * Family reports patient was quite confused at home. * Management is under 1. * 7. Paroxysmal A. fib: On Coumadin. INR is 1.7. We will continue Coumadin once INR. 8. Diabetes mellitus with peripheral neuropathy: * Basaglar 48 units nightly lispro 10 units 3 times daily. * Insulin sliding scale. Accuchecks ACHS * 9. COPD: on duonebs 10. CAD: on statin, aspirin and plavix. 11. Heart failure: EF unknown. Lasix 20 mg twice daily. DVT Prophylaxis: On Coumadin.
--- NOTE | 2018-07-31 12:36 | ED.RN ---
[facility] CATH PLACED WITHOUT DIFFICULTY AND LOW/CONT SUCTION APPLIED.
[2018-07-31 15:25] LABS: Reflex Lactate? Y
[2018-07-31] MEDS: Insulin Lispro 100 UNIT/ML INSULN.PEN 10 UNIT SC (16:25)
[2018-07-31] MEDS: Insulin Lispro 100 UNIT/ML INSULN.PEN SQ ×2 (16:25→21:39)
[2018-07-31 16:26] LABS: Bedside Glucose 210 mg/dL (70-110)
[2018-07-31] MEDS: Furosemide 20 MG Tablet 60 MG PO (16:26)
[2018-07-31] MEDS: Warfarin 1 MG, Warfarin 0.5 MG 1.5 MG PO (16:26)
[2018-07-31] MEDS: Gabapentin 300 MG Capsule PO (16:28)
[2018-07-31 16:41] LABS: Lactic Acid 1.8 mmol/L (0.4-2.0)
[2018-07-31] MEDS: Atorvastatin Calcium 40 MG Tablet PO (21:44)
[2018-07-31 21:55] LABS: Bedside Glucose 247 mg/dL (70-110)
[2018-08-01] VITALS (11 sets, daily range): BP systolic 119–137; BP diastolic 38–58; PULSE 60–69; RESP 16–18; TEMP 37.2–37.4; O2SAT 93–97
[2018-08-01 06:34] LABS: Absolute Lymphocyte Count 2.25 X10^3/ul (0.83-4.51); Basophil# 0.02 X10^3/uL; Basophil% 0.1 % (0-1); Eosinophil# 0.03 X10^3/uL; Eosinophils% 0.1 % (0-5); Hematocrit 39.4 % (37-47); Hemoglobin 12.2 g/dl (12.0-15.0); Lymphocyte # 2.25 X10^3/ul (4.0); Lymphocyte % 9.9 % (19-41); Mean Corpuscular Hgb 29.5 pg (27.0-32.0); Mean Corpuscular Volume 95.4 fL (81-99); Mean Platelet Vol. 9.4 fl (6.2-12.0); Monocyte# 1.39 X10^3/uL; Monocyte% 6.1 % (0-10); Neutrophil # 18.98 X10^3/uL (2.7-7.7); Neutrophil % 83.6 % (47-70); Platelet Count 148 K/mm3 (150-450); RBC Distribution Width CV 16.3 % (11.6-14.6); RBC Distribution Width SD 56.9 fl (35.1-43.9); Red Blood Count 4.13 M/mm3 (4.2-5.4); White Blood Count 22.7 K/mm3 (4.4-11.0)
[2018-08-01 06:37] LABS: POSITIVE COUNT NO; POSITIVE DIFFERENTIAL NO; POSITIVE MORPHOLOGY NO
[2018-08-01 06:40] LABS: International Normalized Ratio 2.1; Prothrombin Time (Protime)PT. 23.7 SECONDS (11.7-14.9)
[2018-08-01 06:51] LABS: Bedside Glucose 186 mg/dL (70-110)
[2018-08-01 07:06] LABS: Anion Gap 6 (5-15); BUN 34 mg/dL (7-18); BUN/Creat Ratio 26.2 RATIO (10-20); Calcium,Total 8.7 mg/dL (8.5-10.1); Chloride 102 mmol/L (98-107); EST Glomerular Filtration Rate 43 mL/min (>60); Est Glom Filt Rate - Afr Amer 52 mL/min (>60); Estimated Creatinine Clearance 35.72 ml/min; Glucose 179 mg/dL (74-106); Potassium 3.9 mmol/L (3.5-5.1); Sodium Level 139 mmol/L (136-145)
[2018-08-01] MEDS: Ipratropium/Albuterol Sulfate 3 ML AMPUL.NEB INHALATION ×2 (07:10→13:14)
[2018-08-01] MEDS: Clopidogrel Bisulfate 75 MG Tablet PO (07:43)
[2018-08-01] MEDS: Insulin Lispro 100 UNIT/ML INSULN.PEN 10 UNIT SC ×3 (07:43→16:43)
[2018-08-01] MEDS: Gabapentin 300 MG Capsule PO ×3 (07:43→16:45)
[2018-08-01] MEDS: Aspirin E.C. 81 MG Tablet PO (07:43)
[2018-08-01] MEDS: Famotidine 20 MG Tablet PO (07:43)
[2018-08-01] MEDS: Insulin Lispro 100 UNIT/ML INSULN.PEN SQ ×4 (07:43→21:49)
[2018-08-01] MEDS: Ascorbic Acid 500 MG Tablet PO (07:43)
[2018-08-01] MEDS: 0.9% Normal Saline 1,000 ML 75 ML IV (09:18)
[2018-08-01] MEDS: Ceftriaxone 1 GM/50 ML BAG IV ×2 (09:18→21:48)
[2018-08-01 11:21] LABS: Bedside Glucose 297 mg/dL (70-110)
--- NOTE | 2018-08-01 11:50 | CASEMGMT ---
RN ULICES Face to Face with patient for initial transition planning/care coordination assessment. RN CM introduced self and role at [facility]. Patient sitting in chair, alert and oriented. Patient willing to participate in assessment and is able to answer all questions appropriately. Care providers, pharmacy, and demographics verified. Patient wishes to discharge to son's home with resumption of HHC through [facility]. Patient states she has no further needs or concerns at this time. CM to follow for discharge planning needs that may arise. PCP: Haris Specialists: Psychometric Examiner at [facility] who placed her pace maker Preferred Pharmacy: [facility] Insurance: [employer] Prescription Benefit: yes Living Will/HPOA: None LNOK: sons, Carlos Enrique and Jaya Living Arrangements: Patient is currently staying with son Carlos Enrique and daughter in law. Patient is independent with self care. Transportation: family DME/HHC: Patient states she has shower chair, raised toilet, cane, walker, wc and oxygen through [facility] at . Patient has beed to the [facility], [facility], and [facility] in the past. Patient is current with [facility] with SN, PT/OT. Disposition Plan: Patient to discharge to son's home with resumption of HHC and follow-up plans in place. Negar WU, RN, CM
--- NOTE | 2018-08-01 13:29 | CASEMGMT ---
Per Sophia WALLS CM, pt is active with [facility] at this time. Call to [facility] to make aware of pt admission and to verify pt services. Per rep, pt is current with them for RN and PT at this time. H&P faxed to them at this time. JENNI order placed and will fax d/c info to them once pt ready for disposition. Clarissa WALLS CM
--- NOTE | 2018-08-01 13:44 | PCM.PROGNOTE ---
<Dayami Marin - Last Filed: 08/01/18 13:51> Subjective: Patient seen and examined. Reports improvement in breathing. Fever improved as well. Denies current complaints. - Physical Exam General: Alert, Oriented x3, Cooperative HEENT: Atraumatic, PERRLA, EOMI, Normocephalic Neck: Supple, No JVD, Negative Carotid Bruits Lungs: Diminished, - - Crackles bilateral bases Cardiovascular: Regular rate, Regular Rhythm, Normal S1, Normal S2, No murmurs Abdomen: Bowel Sounds Present, Soft, Non Tender, Non-Distended, Obese Extremities: No clubbing, No cyanosis, Capillary Refill Less than 3 Seconds, Edema - Nonpitting bilateral lower extremities Skin: No rashes, No breakdown, - - Right lower extremity wound, present on admission. Musculoskeletal: No Tenderness to Palpation of Joints or Extremities Neurological: Cranial nerves II-XII grossly intact, Neuro grossly intact Psych/Mental Status: Normal Affect, Appropriate Vital Signs Temp Pulse Resp BP Pulse Ox 99 F 60 16 128/58 H 93 08/01/18 09:12 08/01/18 13:14 08/01/18 13:14 08/01/18 09:12 08/01/18 09:12 Oxygen Flow Rate (L/min) 2 Oxygen Delivery Method Nasal Cannula Weight: 242 lb 8.136 oz Body Mass Index (BMI) 40.3 Finger Stick Blood Glucose 85 Intake and Output for Last 24 Hours 07/30/18 07/31/18 08/01/18 23:59 23:59 23:59 Intake Total 1526 / 1526 1395 / 1395 Balance 1526 / 1526 1395 / 1395 Microbiology Past 72 Hours 07/31/18 11:15 Gram Stain - Final Wound - Leg, Right Wound Culture - Preliminary Staphylococcus aureus Gram positive mario 07/31/18 15:44 Respiratory Panel (PCR) - Final Mucosa - Nasopharyngeal Laboratory Tests Past 24 Hrs 07/31/18 07/31/18 07/31/18 15:25 16:05 17:10 WBC RBC Hgb Hct MCV MCH MCHC RDW RDW Differential Plt Count MPV Immature Gran % (Auto) Neut % (Auto) Lymph % (Auto) Kern % (Auto) Eos % (Auto) Baso % (Auto) Absolute Neuts (auto) Absolute Lymphs (auto) Total Counted PT INR Sodium Potassium Chloride Carbon Dioxide Anion Gap BUN Creatinine Estim Creat Clear Calc Est GFR (MDRD) Af Amer Est GFR (MDRD) Non-Af BUN/Creatinine Ratio Glucose Lactic Acid 1.8 Calcium Troponin I 0.026 0.034 08/01/18 08/01/18 08/01/18 05:35 05:35 05:35 WBC 22.7 H RBC 4.13 L Hgb 12.2 Hct 39.4 MCV 95.4 MCH 29.5 MCHC 31.0 L RDW 16.3 H RDW Differential 56.9 H Plt Count 148 L MPV 9.4 Immature Gran % (Auto) 0.200 Neut % (Auto) 83.6 H Lymph % (Auto) 9.9 L Kern % (Auto) 6.1 Eos % (Auto) 0.1 Baso % (Auto) 0.1 Absolute Neuts (auto) 19.0 H Absolute Lymphs (auto) 2.25 Total Counted Not Reportable PT 23.7 H INR 2.1 Sodium 139 Potassium 3.9 Chloride 102 Carbon Dioxide 31.0 Anion Gap 6 BUN 34 H Creatinine 1.30 H Estim Creat Clear Calc 35.72 Est GFR (MDRD) Af Amer 52 L Est GFR (MDRD) Non-Af 43 L BUN/Creatinine Ratio 26.2 H Glucose 179 H Lactic Acid Calcium 8.7 Troponin I POC Glucose 08/01/18 08/01/18 07/31/18 11:14 06:39 21:37 POC Glucose 297 H 186 H 247 H 07/31/18 16:19 POC Glucose 210 H Medical Necessity - Tobacco Use Smoking Status: Never smoker Assessment/Plan All Active Problems (Last Reviewed 04/12/18 @ 18:45 by Radha Lind) History of coronary artery stent placement (Acute ~06/18/17) NSTEMI (non-ST elevated myocardial infarction) (Acute) Influenza (Acute) COPD with acute exacerbation (Acute) Anemia (Resolved) 1. Severe sepsis secondary to community-acquired pneumonia-chest x-ray admission with right upper lobe consolidation. Continue IV Rocephin and IV azithromycin. Albuterol and DuoNeb aerosols. Respiratory panel negative. Blood culture pending. Sputum culture preliminary shows staph, gram-positive mario. 2. Acute on chronic hypoxic respiratory failure secondary to #1-chronically wears supplemental oxygen at bedtime. Continue supple oxygen to maintain O2 sat above 90%. 3. Acute metabolic encephalopathy, secondary to #1/#2-improved. Continue to treat underlying processes. 4. Paroxysmal atrial fibrillation on anticoagulation with Coumadin.- 5. Recent pacemaker [id number] with primary associate pathologist in [place] following discharge. 6. CAD-continue aspirin, statin, Plavix. 7. Chronic diastolic CHF-hold Lasix regimen. Echocardiogram June 2017 with EF 55%. 8. Chronic COPD-no acute exacerbation. Albuterol aerosol as needed. 9. Type 2 diabetes [id number] AC at bedtime with sliding scale insulin. Continue home Lantus and scheduled Humalog regimen. 10. Chronic kidney disease stage III-appears mildly dehydrated. No acute kidney injury. Gentle IV fluids. Hold Lasix regimen today, plan to resume tomorrow. DVT prophylaxis-Coumadin This patient was seen by Dayami Marin NP-C under the supervision of Dr. Bunn. <Shahriar Bunn - Last Filed: 08/01/18 16:27> Subjective: Patient has improvement in shortness of breath. Still has mild cough, weakness and wheezing. On 2 L of oxygen. - Physical Exam General: Alert, Oriented x3, Cooperative HEENT: Atraumatic, PERRLA, EOMI, Normocephalic Neck: Supple, No JVD, Negative Carotid Bruits Lungs: Diminished, Rales, Rhonchi, - Cardiovascular: Regular rate, Regular Rhythm, Normal S1, Normal S2, No murmurs Abdomen: Bowel Sounds Present, Soft, Non Tender, Non-Distended Extremities: Capillary Refill Less than 3 Seconds, Edema Skin: No rashes, No breakdown, Ulcer/ Wound - Chronic about 2 cm superficial ulcer present on spencer of right leg. Seems most probably venous ulcer, nonhealing. Minimal discharge or dry. Musculoskeletal: No Tenderness to Palpation of Joints or Extremities Neurological: Cranial nerves II-XII grossly intact, Neuro grossly intact Psych/Mental Status: Normal Affect, Appropriate Vital Signs Temp Pulse Resp BP Pulse Ox 99 F 60 18 119/47 L 96 08/01/18 15:00 08/01/18 15:18 08/01/18 15:00 08/01/18 15:00 08/01/18 15:00 Oxygen Flow Rate (L/min) 2 Oxygen Delivery Method Nasal Cannula Weight: 242 lb 8.136 oz Body Mass Index (BMI) 40.3 Finger Stick Blood Glucose 85 Intake and Output for Last 24 Hours 07/30/18 07/31/18 08/01/18 23:59 23:59 23:59 Intake Total 1526 / 1526 1395 / 1395 Balance 1526 / 1526 1395 / 1395 Microbiology Past 72 Hours 07/31/18 11:15 Gram Stain - Final Wound - Leg, Right Wound Culture - Preliminary Staphylococcus aureus Gram positive mario 07/31/18 15:44 Respiratory Panel (PCR) - Final Mucosa - Nasopharyngeal Laboratory Tests Past 24 Hrs 07/31/18 07/31/18 08/01/18 16:05 17:10 05:35 WBC 22.7 H RBC 4.13 L Hgb 12.2 Hct 39.4 MCV 95.4 MCH 29.5 MCHC 31.0 L RDW 16.3 H RDW Differential 56.9 H Plt Count 148 L MPV 9.4 Immature Gran % (Auto) 0.200 Neut % (Auto) 83.6 H Lymph % (Auto) 9.9 L Kern % (Auto) 6.1 Eos % (Auto) 0.1 Baso % (Auto) 0.1 Absolute Neuts (auto) 19.0 H Absolute Lymphs (auto) 2.25 Total Counted Not Reportable PT INR Sodium Potassium Chloride Carbon Dioxide Anion Gap BUN Creatinine Estim Creat Clear Calc Est GFR (MDRD) Af Amer Est GFR (MDRD) Non-Af BUN/Creatinine Ratio Glucose Lactic Acid 1.8 Calcium Troponin I 0.034 08/01/18 08/01/18 05:35 05:35 WBC RBC Hgb Hct MCV MCH MCHC RDW RDW Differential Plt Count MPV Immature Gran % (Auto) Neut % (Auto) Lymph % (Auto) Kern % (Auto) Eos % (Auto) Baso % (Auto) Absolute Neuts (auto) Absolute Lymphs (auto) Total Counted PT 23.7 H INR 2.1 Sodium 139 Potassium 3.9 Chloride 102 Carbon Dioxide 31.0 Anion Gap 6 BUN 34 H Creatinine 1.30 H Estim Creat Clear Calc 35.72 Est GFR (MDRD) Af Amer 52 L Est GFR (MDRD) Non-Af 43 L BUN/Creatinine Ratio 26.2 H Glucose 179 H Lactic Acid Calcium 8.7 Troponin I POC Glucose 08/01/18 08/01/18 08/01/18 16:04 11:14 06:39 POC Glucose 264 H 297 H 186 H 07/31/18 07/31/18 21:37 16:19 POC Glucose 247 H 210 H Assessment/Plan This patient was seen in conjunction with ZINC PLATE GRAINERDayami. I have independently interviewed and examined the patient and reviewed pertinent history, examination findings, laboratory and plan of management. I have reviewed the note and agree with the documented findings with the few additional points. In brief, patient is admitted for severe sepsis secondary to right upper lobe community-acquired pneumonia. On IV Rocephin and Zithromax. Pneumonia work-up shows respiratory panel negative. Sputum culture, prelim gram-positive mario and staph. Patient also has acute on chronic hypoxic respiratory failure with baseline supplemental oxygen at bedtime. Other comorbidities include paroxysmal A. fib on Coumadin, recent pacemaker, and diabetes mellitus type 2 and COPD. I have discussed my assessment with ZINC PLATE GRAINERDayami and orders have been reviewed. Code Visit Inpatient E&M: 53603 Subs Hosp L2
--- NOTE | 2018-08-01 13:51 | PN_ITS ---
<Dayami Marin - Last Filed: 08/01/18 13:51> Subjective: Patient seen and examined. Reports improvement in breathing. Fever improved as well. Denies current complaints. - Physical Exam General: Alert, Oriented x3, Cooperative HEENT: Atraumatic, PERRLA, EOMI, Normocephalic Neck: Supple, No JVD, Negative Carotid Bruits Lungs: Diminished, - - Crackles bilateral bases Cardiovascular: Regular rate, Regular Rhythm, Normal S1, Normal S2, No murmurs Abdomen: Bowel Sounds Present, Soft, Non Tender, Non-Distended, Obese Extremities: No clubbing, No cyanosis, Capillary Refill Less than 3 Seconds, Edema - Nonpitting bilateral lower extremities Skin: No rashes, No breakdown, - - Right lower extremity wound, present on admission. Musculoskeletal: No Tenderness to Palpation of Joints or Extremities Neurological: Cranial nerves II-XII grossly intact, Neuro grossly intact Psych/Mental Status: Normal Affect, Appropriate Vital Signs Temp Pulse Resp BP Pulse Ox 99 F 60 16 128/58 H 93 08/01/18 09:12 08/01/18 13:14 08/01/18 13:14 08/01/18 09:12 08/01/18 09:12 Oxygen Flow Rate (L/min) 2 Oxygen Delivery Method Nasal Cannula Weight: 242 lb 8.136 oz Body Mass Index (BMI) 40.3 Finger Stick Blood Glucose 85 Intake and Output for Last 24 Hours 07/30/18 07/31/18 08/01/18 23:59 23:59 23:59 Intake Total 1526 / 1526 1395 / 1395 Balance 1526 / 1526 1395 / 1395 Microbiology Past 72 Hours 07/31/18 11:15 Gram Stain - Final Wound - Leg, Right Wound Culture - Preliminary Staphylococcus aureus Gram positive mario 07/31/18 15:44 Respiratory Panel (PCR) - Final Mucosa - Nasopharyngeal Laboratory Tests Past 24 Hrs 07/31/18 07/31/18 07/31/18 15:25 16:05 17:10 WBC RBC Hgb Hct MCV MCH MCHC RDW RDW Differential Plt Count MPV Immature Gran % (Auto) Neut % (Auto) Lymph % (Auto) Isabela % (Auto) Eos % (Auto) Baso % (Auto) Absolute Neuts (auto) Absolute Lymphs (auto) Total Counted PT INR Sodium Potassium Chloride Carbon Dioxide Anion Gap BUN Creatinine Estim Creat Clear Calc Est GFR (MDRD) Af Amer Est GFR (MDRD) Non-Af BUN/Creatinine Ratio Glucose Lactic Acid 1.8 Calcium Troponin I 0.026 0.034 08/01/18 08/01/18 08/01/18 05:35 05:35 05:35 WBC 22.7 H RBC 4.13 L Hgb 12.2 Hct 39.4 MCV 95.4 MCH 29.5 MCHC 31.0 L RDW 16.3 H RDW Differential 56.9 H Plt Count 148 L MPV 9.4 Immature Gran % (Auto) 0.200 Neut % (Auto) 83.6 H Lymph % (Auto) 9.9 L Isabela % (Auto) 6.1 Eos % (Auto) 0.1 Baso % (Auto) 0.1 Absolute Neuts (auto) 19.0 H Absolute Lymphs (auto) 2.25 Total Counted Not Reportable PT 23.7 H INR 2.1 Sodium 139 Potassium 3.9 Chloride 102 Carbon Dioxide 31.0 Anion Gap 6 BUN 34 H Creatinine 1.30 H Estim Creat Clear Calc 35.72 Est GFR (MDRD) Af Amer 52 L Est GFR (MDRD) Non-Af 43 L BUN/Creatinine Ratio 26.2 H Glucose 179 H Lactic Acid Calcium 8.7 Troponin I POC Glucose 08/01/18 08/01/18 07/31/18 11:14 06:39 21:37 POC Glucose 297 H 186 H 247 H 07/31/18 16:19 POC Glucose 210 H Medical Necessity - Tobacco Use Smoking Status: Never smoker Assessment/Plan All Active Problems (Last Reviewed 04/12/18 @ 18:45 by Radha Lind) History of coronary artery stent placement (Acute ~06/18/17) NSTEMI (non-ST elevated myocardial infarction) (Acute) Influenza (Acute) COPD with acute exacerbation (Acute) Anemia (Resolved) 1. Severe sepsis secondary to community-acquired pneumonia-chest x-ray admission with right upper lobe consolidation. Continue IV Rocephin and IV azithromycin. Albuterol and DuoNeb aerosols. Respiratory panel negative. Blood culture pending. Sputum culture preliminary shows staph, gram-positive mario. 2. Acute on chronic hypoxic respiratory failure secondary to #1-chronically wears supplemental oxygen at bedtime. Continue supple oxygen to maintain O2 sat above 90%. 3. Acute metabolic encephalopathy, secondary to #1/#2-improved. Continue to treat underlying processes. 4. Paroxysmal atrial fibrillation on anticoagulation with Coumadin.- 5. Recent pacemaker [id number] with primary powder loader in [place] following discharge. 6. CAD-continue aspirin, statin, Plavix. 7. Chronic diastolic CHF-hold Lasix regimen. Echocardiogram June 2017 with EF 55%. 8. Chronic COPD-no acute exacerbation. Albuterol aerosol as needed. 9. Type 2 diabetes [id number] AC at bedtime with sliding scale insulin. Continue home Lantus and scheduled Humalog regimen. 10. Chronic kidney disease stage III-appears mildly dehydrated. No acute kidney injury. Gentle IV fluids. Hold Lasix regimen today, plan to resume tomorrow. DVT prophylaxis-Coumadin This patient was seen by Dayami Marin NP-C under the supervision of Dr. Bunn. <Shahriar Bunn - Last Filed: 08/01/18 16:27> Subjective: Patient has improvement in shortness of breath. Still has mild cough, weakness and wheezing. On 2 L of oxygen. - Physical Exam General: Alert, Oriented x3, Cooperative HEENT: Atraumatic, PERRLA, EOMI, Normocephalic Neck: Supple, No JVD, Negative Carotid Bruits Lungs: Diminished, Rales, Rhonchi, - Cardiovascular: Regular rate, Regular Rhythm, Normal S1, Normal S2, No murmurs Abdomen: Bowel Sounds Present, Soft, Non Tender, Non-Distended Extremities: Capillary Refill Less than 3 Seconds, Edema Skin: No rashes, No breakdown, Ulcer/ Wound - Chronic about 2 cm superficial ulcer present on spencer of right leg. Seems most probably venous ulcer, nonhealing. Minimal discharge or dry. Musculoskeletal: No Tenderness to Palpation of Joints or Extremities Neurological: Cranial nerves II-XII grossly intact, Neuro grossly intact Psych/Mental Status: Normal Affect, Appropriate Vital Signs Temp Pulse Resp BP Pulse Ox 99 F 60 18 119/47 L 96 08/01/18 15:00 08/01/18 15:18 08/01/18 15:00 08/01/18 15:00 08/01/18 15:00 Oxygen Flow Rate (L/min) 2 Oxygen Delivery Method Nasal Cannula Weight: 242 lb 8.136 oz Body Mass Index (BMI) 40.3 Finger Stick Blood Glucose 85 Intake and Output for Last 24 Hours 07/30/18 07/31/18 08/01/18 23:59 23:59 23:59 Intake Total 1526 / 1526 1395 / 1395 Balance 1526 / 1526 1395 / 1395 Microbiology Past 72 Hours 07/31/18 11:15 Gram Stain - Final Wound - Leg, Right Wound Culture - Preliminary Staphylococcus aureus Gram positive mario 07/31/18 15:44 Respiratory Panel (PCR) - Final Mucosa - Nasopharyngeal Laboratory Tests Past 24 Hrs 07/31/18 07/31/18 08/01/18 16:05 17:10 05:35 WBC 22.7 H RBC 4.13 L Hgb 12.2 Hct 39.4 MCV 95.4 MCH 29.5 MCHC 31.0 L RDW 16.3 H RDW Differential 56.9 H Plt Count 148 L MPV 9.4 Immature Gran % (Auto) 0.200 Neut % (Auto) 83.6 H Lymph % (Auto) 9.9 L Isabela % (Auto) 6.1 Eos % (Auto) 0.1 Baso % (Auto) 0.1 Absolute Neuts (auto) 19.0 H Absolute Lymphs (auto) 2.25 Total Counted Not Reportable PT INR Sodium Potassium Chloride Carbon Dioxide Anion Gap BUN Creatinine Estim Creat Clear Calc Est GFR (MDRD) Af Amer Est GFR (MDRD) Non-Af BUN/Creatinine Ratio Glucose Lactic Acid 1.8 Calcium Troponin I 0.034 08/01/18 08/01/18 05:35 05:35 WBC RBC Hgb Hct MCV MCH MCHC RDW RDW Differential Plt Count MPV Immature Gran % (Auto) Neut % (Auto) Lymph % (Auto) Isabela % (Auto) Eos % (Auto) Baso % (Auto) Absolute Neuts (auto) Absolute Lymphs (auto) Total Counted PT 23.7 H INR 2.1 Sodium 139 Potassium 3.9 Chloride 102 Carbon Dioxide 31.0 Anion Gap 6 BUN 34 H Creatinine 1.30 H Estim Creat Clear Calc 35.72 Est GFR (MDRD) Af Amer 52 L Est GFR (MDRD) Non-Af 43 L BUN/Creatinine Ratio 26.2 H Glucose 179 H Lactic Acid Calcium 8.7 Troponin I POC Glucose 08/01/18 08/01/18 08/01/18 16:04 11:14 06:39 POC Glucose 264 H 297 H 186 H 07/31/18 07/31/18 21:37 16:19 POC Glucose 247 H 210 H Assessment/Plan This patient was seen in conjunction with STOPE MINERDayami. I have independently interviewed and examined the patient and reviewed pertinent history, examination findings, laboratory and plan of management. I have reviewed the note and agree with the documented findings with the few additional points. In brief, patient is admitted for severe sepsis secondary to right upper lobe community-acquired pneumonia. On IV Rocephin and Zithromax. Pneumonia work-up shows respiratory panel negative. Sputum culture, prelim gram-positive mario and staph. Patient also has acute on chronic hypoxic respiratory failure with baseline supplemental oxygen at bedtime. Other comorbidities include paroxysmal A. fib on Coumadin, recent pacemaker, and diabetes mellitus type 2 and COPD. I have discussed my assessment with STOPE MINERDayami and orders have been reviewed. Code Visit Inpatient E&M: 75186 Subs Hosp L2
[2018-08-01 16:11] LABS: Bedside Glucose 264 mg/dL (70-110)
[2018-08-01] MEDS: Warfarin 1 MG, Warfarin 0.5 MG 1.5 MG PO (16:45)
[2018-08-01] MEDS: Atorvastatin Calcium 40 MG Tablet PO (21:48)
[2018-08-01 22:56] LABS: Bedside Glucose 194 mg/dL (70-110)
[2018-08-02] VITALS (11 sets, daily range): BP systolic 128–141; BP diastolic 61–76; PULSE 60–64; RESP 16–18; TEMP 36.4–37.5; O2SAT 93–97
[2018-08-02] MEDS: Acetaminophen 325 MG Tablet 650 MG PO (03:07)
[2018-08-02] MEDS: 0.9% Normal Saline 1,000 ML 75 ML IV (03:19)
[2018-08-02 06:21] LABS: Hematocrit 34.7 % (37-47); Hemoglobin 10.7 g/dl (12.0-15.0); Mean Corp Hgb Conc 30.8 g/gl (32-36); Mean Corpuscular Hgb 29.6 pg (27.0-32.0); Mean Corpuscular Volume 95.9 fL (81-99); Mean Platelet Vol. 9.8 fl (6.2-12.0); Platelet Count 134 K/mm3 (150-450); RBC Distribution Width CV 15.6 % (11.6-14.6); RBC Distribution Width SD 53.1 fl (35.1-43.9); Red Blood Count 3.62 M/mm3 (4.2-5.4); White Blood Count 11.5 K/mm3 (4.4-11.0)
[2018-08-02 06:24] LABS: Scan Indicated on CBC? Y/N NO
[2018-08-02 06:33] LABS: Anion Gap 5 (5-15); BUN 35 mg/dL (7-18); BUN/Creat Ratio 31.8 RATIO (10-20); Calcium,Total 8.2 mg/dL (8.5-10.1); Chloride 104 mmol/L (98-107); EST Glomerular Filtration Rate 52 mL/min (>60); Est Glom Filt Rate - Afr Amer 63 mL/min (>60); Estimated Creatinine Clearance 42.21 ml/min; Glucose 183 mg/dL (74-106); Potassium 4.1 mmol/L (3.5-5.1); Sodium Level 138 mmol/L (136-145)
[2018-08-02 06:50] LABS: Bedside Glucose 176 mg/dL (70-110)
[2018-08-02] MEDS: Ipratropium/Albuterol Sulfate 3 ML AMPUL.NEB INHALATION ×3 (07:00→18:35)
[2018-08-02] MEDS: Insulin Lispro 100 UNIT/ML INSULN.PEN 10 UNIT SC ×3 (08:14→16:53)
[2018-08-02] MEDS: Insulin Lispro 100 UNIT/ML INSULN.PEN SQ ×4 (08:14→21:03)
[2018-08-02] MEDS: Aspirin E.C. 81 MG Tablet PO (08:15)
[2018-08-02] MEDS: Furosemide 20 MG Tablet 60 MG PO ×2 (08:15→16:55)
[2018-08-02] MEDS: Ascorbic Acid 500 MG Tablet PO (08:15)
[2018-08-02] MEDS: Gabapentin 300 MG Capsule PO ×3 (08:15→16:54)
[2018-08-02] MEDS: Famotidine 20 MG Tablet PO (08:16)
[2018-08-02] MEDS: Clopidogrel Bisulfate 75 MG Tablet PO (08:16)
[2018-08-02] MEDS: Ceftriaxone 1 GM/50 ML BAG IV ×2 (09:42→21:02)
--- NOTE | 2018-08-02 09:56 | NURSING ---
wound photo: right medial lower leg
[2018-08-02 11:51] LABS: Bedside Glucose 323 mg/dL (70-110)
--- NOTE | 2018-08-02 12:12 | PCM.PROGNOTE ---
<Dayami Marin - Last Filed: 08/02/18 12:21> Subjective: Patient seen and examined. Reports improvement in breathing and weakness. Denies fever, chills. - Physical Exam General: Alert, Oriented x3, Cooperative HEENT: Atraumatic, PERRLA, EOMI, Normocephalic Neck: Supple, No JVD, Negative Carotid Bruits Lungs: Diminished, - - Mild crackles bilateral bases Cardiovascular: Regular rate, Regular Rhythm, Normal S1, Normal S2, No murmurs Abdomen: Bowel Sounds Present, Soft, Non Tender, Non-Distended, Obese Extremities: No clubbing, No cyanosis, No edema, Capillary Refill Less than 3 Seconds Skin: No rashes, No breakdown, - - Right medial lower leg wound, dressing intact. Musculoskeletal: No Tenderness to Palpation of Joints or Extremities Neurological: Cranial nerves II-XII grossly intact, Neuro grossly intact Psych/Mental Status: Normal Affect, Appropriate Vital Signs Temp Pulse Resp BP Pulse Ox 97.5 F L 62 18 131/76 H 96 08/02/18 08:08 08/02/18 08:08 08/02/18 08:08 08/02/18 08:08 08/02/18 08:08 Oxygen Flow Rate (L/min) 2 Oxygen Delivery Method Nasal Cannula Weight: 242 lb 8.136 oz Body Mass Index (BMI) 40.3 Finger Stick Blood Glucose 85 Intake and Output for Last 24 Hours 07/31/18 08/01/18 08/02/18 23:59 23:59 23:59 Intake Total 1526 / 1526 3338 / 3338 1958 / 1958 Output Total 150 / 150 350 / 350 Balance 1526 / 1526 3188 / 3188 1609 / 1609 Microbiology Past 72 Hours 07/31/18 11:45 Blood Culture - Preliminary Blood Culture (Wb) - Right Hand No growth in 48 hours. 07/31/18 11:15 Blood Culture - Preliminary Blood Culture (Wb) - Left Hand No growth in 48 hours. 07/31/18 11:15 Gram Stain - Final Wound - Leg, Right Wound Culture - Final Staphylococcus aureus Gram positive mario 07/31/18 15:44 Respiratory Panel (PCR) - Final Mucosa - Nasopharyngeal Laboratory Tests Past 24 Hrs 08/02/18 08/02/18 05:40 05:40 WBC 11.5 H RBC 3.62 L Hgb 10.7 L Hct 34.7 L MCV 95.9 MCH 29.6 MCHC 30.8 L RDW 15.6 H RDW Differential 53.1 H Plt Count 134 L MPV 9.8 Sodium 138 Potassium 4.1 Chloride 104 Carbon Dioxide 29.0 Anion Gap 5 BUN 35 H Creatinine 1.10 H Estim Creat Clear Calc 42.21 Est GFR (MDRD) Af Amer 63 Est GFR (MDRD) Non-Af 52 L BUN/Creatinine Ratio 31.8 H Glucose 183 H Calcium 8.2 L POC Glucose 08/02/18 08/02/18 08/01/18 11:41 06:43 21:46 POC Glucose 323 H 176 H 194 H 08/01/18 16:04 POC Glucose 264 H Medical Necessity - Tobacco Use Smoking Status: Never smoker Assessment/Plan All Active Problems (Last Reviewed 04/12/18 @ 18:45 by Radha Lind) History of coronary artery stent placement (Acute ~06/18/17) NSTEMI (non-ST elevated myocardial infarction) (Acute) Influenza (Acute) COPD with acute exacerbation (Acute) Anemia (Resolved) 1. Severe sepsis secondary to community-acquired pneumonia-chest x-ray admission with right upper lobe consolidation. Continue IV Rocephin and IV azithromycin. Albuterol and DuoNeb aerosols. Respiratory panel negative. Blood culture shows no growth. Transition to oral antibiotic regimen tomorrow. 2. Acute on chronic hypoxic respiratory failure secondary to #1-chronically wears supplemental oxygen at bedtime. Continue supple oxygen to maintain O2 sat above 90%. 3. Acute metabolic encephalopathy, secondary to #1/#2-improved. Continue to treat underlying processes. 4. Paroxysmal atrial fibrillation on anticoagulation with Coumadin. 5. Recent pacemaker [id number] with primary instructional specialist in [place] following discharge. 6. CAD-continue aspirin, statin, Plavix. 7. Chronic diastolic CHF-hold Lasix regimen. Echocardiogram June 2017 with EF 55%. 8. Chronic COPD-no acute exacerbation. Albuterol aerosol as needed. 9. Type 2 diabetes gqsxptif-Qafv-[id number] AC at bedtime with sliding scale insulin. Continue home Lantus and scheduled Humalog regimen. 10. Chronic kidney disease stage III-stable. 11. Right lower extremity venous stasis ulceration, present on admission-wound RN consult. Wound culture with staph and gram-positive mario. Continue dressing changes per wound RN order. DVT prophylaxis-Coumadin Discharge planning: Anticipate discharge tomorrow, home with home health. This patient was seen by PAT Cole under the supervision of Dr. Bunn. <Shahriar Bunn - Last Filed: 08/02/18 16:26> Subjective: Seen and examined. Patient still has mild shortness of breath and wheezing. Cough is better. No Fever or chills. Objective: General: Alert, Oriented x3, Cooperative HEENT: Atraumatic, PERRLA, EOMI, Normocephalic Neck: Supple, No JVD, Negative Carotid Bruits Lungs: Air entry diminished in bilateral lung bases. Bilateral rhonchi Cardiovascular: Regular rate, Regular Rhythm, Normal S1, Normal S2, No murmurs Abdomen: Bowel Sounds Present, Soft, Non Tender, Non-Distended Extremities: Capillary Refill Less than 3 Seconds, Edema Skin: No rashes, No breakdown, Chronic about 2 cm superficial ulcer present on spencer of right leg. most probably venous ulcer, nonhealing. I. Dressing is done. Musculoskeletal: No Tenderness to Palpation of Joints or Extremities Neurological: Cranial nerves II-XII grossly intact, Neuro grossly intact Psych/Mental Status: Normal Affect, Appropriate - Physical Exam Vital Signs Temp Pulse Resp BP Pulse Ox 98.2 F 60 16 140/61 H 93 08/02/18 15:06 08/02/18 15:06 08/02/18 15:06 08/02/18 15:06 08/02/18 15:06 Oxygen Flow Rate (L/min) 2 Oxygen Delivery Method Nasal Cannula Weight: 242 lb 8.136 oz Body Mass Index (BMI) 40.3 Finger Stick Blood Glucose 85 Intake and Output for Last 24 Hours 07/31/18 08/01/18 08/02/18 23:59 23:59 23:59 Intake Total 1526 / 1526 3338 / 3338 195 / 1958 Output Total 150 / 150 350 / 350 Balance 1526 / 1526 3188 / 3188 1609 / 1609 Microbiology Past 72 Hours 07/31/18 11:45 Blood Culture - Preliminary Blood Culture (Wb) - Right Hand No growth in 48 hours. 07/31/18 11:15 Blood Culture - Preliminary Blood Culture (Wb) - Left Hand No growth in 48 hours. 07/31/18 11:15 Gram Stain - Final Wound - Leg, Right Wound Culture - Final Staphylococcus aureus Gram positive mario 07/31/18 15:44 Respiratory Panel (PCR) - Final Mucosa - Nasopharyngeal Laboratory Tests Past 24 Hrs 08/02/18 08/02/18 05:40 05:40 WBC 11.5 H RBC 3.62 L Hgb 10.7 L Hct 34.7 L MCV 95.9 MCH 29.6 MCHC 30.8 L RDW 15.6 H RDW Differential 53.1 H Plt Count 134 L MPV 9.8 Sodium 138 Potassium 4.1 Chloride 104 Carbon Dioxide 29.0 Anion Gap 5 BUN 35 H Creatinine 1.10 H Estim Creat Clear Calc 42.21 Est GFR (MDRD) Af Amer 63 Est GFR (MDRD) Non-Af 52 L BUN/Creatinine Ratio 31.8 H Glucose 183 H Calcium 8.2 L POC Glucose 08/02/18 08/02/18 08/01/18 11:41 06:43 21:46 POC Glucose 323 H 176 H 194 H Assessment/Plan This patient was seen in conjunction with SPEEDBOAT DRIVERDayami. I have independently interviewed and examined the patient and reviewed pertinent history, examination findings, laboratory and plan of management. I have reviewed the note and agree with the documented findings with the few additional points. In brief, patient is admitted for severe sepsis secondary to right upper lobe community-acquired pneumonia. On IV Rocephin and Zithromax. Pneumonia work-up shows respiratory panel negative. Patient also has acute on chronic hypoxic respiratory failure with baseline supplemental oxygen at bedtime. From right leg shows a staph aureus 2+, gram-positive rods 2+. MSSA. Gram-positive rods. Patient is on antibiotics. Other comorbidities include paroxysmal A. fib on Coumadin, recent pacemaker, and diabetes mellitus type 2 and COPD. I have discussed my assessment with Dayami CARVALHO and orders have been reviewed. Code Visit Inpatient E&M: 08484 Subs Hosp L2
--- NOTE | 2018-08-02 12:16 | PN_ITS ---
<Dayami Marin - Last Filed: 08/02/18 12:21> Subjective: Patient seen and examined. Reports improvement in breathing and weakness. Denies fever, chills. - Physical Exam General: Alert, Oriented x3, Cooperative HEENT: Atraumatic, PERRLA, EOMI, Normocephalic Neck: Supple, No JVD, Negative Carotid Bruits Lungs: Diminished, - - Mild crackles bilateral bases Cardiovascular: Regular rate, Regular Rhythm, Normal S1, Normal S2, No murmurs Abdomen: Bowel Sounds Present, Soft, Non Tender, Non-Distended, Obese Extremities: No clubbing, No cyanosis, No edema, Capillary Refill Less than 3 Seconds Skin: No rashes, No breakdown, - - Right medial lower leg wound, dressing intact. Musculoskeletal: No Tenderness to Palpation of Joints or Extremities Neurological: Cranial nerves II-XII grossly intact, Neuro grossly intact Psych/Mental Status: Normal Affect, Appropriate Vital Signs Temp Pulse Resp BP Pulse Ox 97.5 F L 62 18 131/76 H 96 08/02/18 08:08 08/02/18 08:08 08/02/18 08:08 08/02/18 08:08 08/02/18 08:08 Oxygen Flow Rate (L/min) 2 Oxygen Delivery Method Nasal Cannula Weight: 242 lb 8.136 oz Body Mass Index (BMI) 40.3 Finger Stick Blood Glucose 85 Intake and Output for Last 24 Hours 07/31/18 08/01/18 08/02/18 23:59 23:59 23:59 Intake Total 1526 / 1526 3338 / 3338 1958 / 1958 Output Total 150 / 150 350 / 350 Balance 1526 / 1526 3188 / 3188 1609 / 1609 Microbiology Past 72 Hours 07/31/18 11:45 Blood Culture - Preliminary Blood Culture (Wb) - Right Hand No growth in 48 hours. 07/31/18 11:15 Blood Culture - Preliminary Blood Culture (Wb) - Left Hand No growth in 48 hours. 07/31/18 11:15 Gram Stain - Final Wound - Leg, Right Wound Culture - Final Staphylococcus aureus Gram positive mario 07/31/18 15:44 Respiratory Panel (PCR) - Final Mucosa - Nasopharyngeal Laboratory Tests Past 24 Hrs 08/02/18 08/02/18 05:40 05:40 WBC 11.5 H RBC 3.62 L Hgb 10.7 L Hct 34.7 L MCV 95.9 MCH 29.6 MCHC 30.8 L RDW 15.6 H RDW Differential 53.1 H Plt Count 134 L MPV 9.8 Sodium 138 Potassium 4.1 Chloride 104 Carbon Dioxide 29.0 Anion Gap 5 BUN 35 H Creatinine 1.10 H Estim Creat Clear Calc 42.21 Est GFR (MDRD) Af Amer 63 Est GFR (MDRD) Non-Af 52 L BUN/Creatinine Ratio 31.8 H Glucose 183 H Calcium 8.2 L POC Glucose 08/02/18 08/02/18 08/01/18 11:41 06:43 21:46 POC Glucose 323 H 176 H 194 H 08/01/18 16:04 POC Glucose 264 H Medical Necessity - Tobacco Use Smoking Status: Never smoker Assessment/Plan All Active Problems (Last Reviewed 04/12/18 @ 18:45 by Radha Lind) History of coronary artery stent placement (Acute ~06/18/17) NSTEMI (non-ST elevated myocardial infarction) (Acute) Influenza (Acute) COPD with acute exacerbation (Acute) Anemia (Resolved) 1. Severe sepsis secondary to community-acquired pneumonia-chest x-ray admission with right upper lobe consolidation. Continue IV Rocephin and IV azithromycin. Albuterol and DuoNeb aerosols. Respiratory panel negative. Blood culture shows no growth. Transition to oral antibiotic regimen tomorrow. 2. Acute on chronic hypoxic respiratory failure secondary to #1-chronically wears supplemental oxygen at bedtime. Continue supple oxygen to maintain O2 sat above 90%. 3. Acute metabolic encephalopathy, secondary to #1/#2-improved. Continue to treat underlying processes. 4. Paroxysmal atrial fibrillation on anticoagulation with Coumadin. 5. Recent pacemaker [id number] with primary director global strategic publisher sales in [facility] discharge. 6. CAD-continue aspirin, statin, Plavix. 7. Chronic diastolic CHF-hold Lasix regimen. Echocardiogram June 2017 with EF 55%. 8. Chronic COPD-no acute exacerbation. Albuterol aerosol as needed. 9. Type 2 diabetes unzfudzf-Fngz-Aqega AC at bedtime with sliding scale insulin. Continue home Lantus and scheduled Humalog regimen. 10. Chronic kidney disease stage III-stable. 11. Right lower extremity venous stasis ulceration, present on admission-wound RN consult. Wound culture with staph and gram-positive mario. Continue dressing changes per wound RN order. DVT prophylaxis-Coumadin Discharge planning: Anticipate discharge tomorrow, home with home health. This patient was seen by PAT Cole under the supervision of Dr. Bunn. <Herve Bunnkash - Last Filed: 08/02/18 16:26> Subjective: Seen and examined. Patient still has mild shortness of breath and wheezing. Cough is better. No Fever or chills. Objective: General: Alert, Oriented x3, Cooperative HEENT: Atraumatic, PERRLA, EOMI, Normocephalic Neck: Supple, No JVD, Negative Carotid Bruits Lungs: Air entry diminished in bilateral lung bases. Bilateral rhonchi Cardiovascular: Regular rate, Regular Rhythm, Normal S1, Normal S2, No murmurs Abdomen: Bowel Sounds Present, Soft, Non Tender, Non-Distended Extremities: Capillary Refill Less than 3 Seconds, Edema Skin: No rashes, No breakdown, Chronic about 2 cm superficial ulcer present on spencer of right leg. most probably venous ulcer, nonhealing. I. Dressing is done. Musculoskeletal: No Tenderness to Palpation of Joints or Extremities Neurological: Cranial nerves II-XII grossly intact, Neuro grossly intact Psych/Mental Status: Normal Affect, Appropriate - Physical Exam Vital Signs Temp Pulse Resp BP Pulse Ox 98.2 F 60 16 140/61 H 93 08/02/18 15:06 08/02/18 15:06 08/02/18 15:06 08/02/18 15:06 08/02/18 15:06 Oxygen Flow Rate (L/min) 2 Oxygen Delivery Method Nasal Cannula Weight: 242 lb 8.136 oz Body Mass Index (BMI) 40.3 Finger Stick Blood Glucose 85 Intake and Output for Last 24 Hours 07/31/18 08/01/18 08/02/18 23:59 23:59 23:59 Intake Total 1526 / 1526 3338 / 3338 1958 / 1958 Output Total 150 / 150 350 / 350 Balance 1526 / 1526 3188 / 3188 1609 / 1609 Microbiology Past 72 Hours 07/31/18 11:45 Blood Culture - Preliminary Blood Culture (Wb) - Right Hand No growth in 48 hours. 07/31/18 11:15 Blood Culture - Preliminary Blood Culture (Wb) - Left Hand No growth in 48 hours. 07/31/18 11:15 Gram Stain - Final Wound - Leg, Right Wound Culture - Final Staphylococcus aureus Gram positive mario 07/31/18 15:44 Respiratory Panel (PCR) - Final Mucosa - Nasopharyngeal Laboratory Tests Past 24 Hrs 08/02/18 08/02/18 05:40 05:40 WBC 11.5 H RBC 3.62 L Hgb 10.7 L Hct 34.7 L MCV 95.9 MCH 29.6 MCHC 30.8 L RDW 15.6 H RDW Differential 53.1 H Plt Count 134 L MPV 9.8 Sodium 138 Potassium 4.1 Chloride 104 Carbon Dioxide 29.0 Anion Gap 5 BUN 35 H Creatinine 1.10 H Estim Creat Clear Calc 42.21 Est GFR (MDRD) Af Amer 63 Est GFR (MDRD) Non-Af 52 L BUN/Creatinine Ratio 31.8 H Glucose 183 H Calcium 8.2 L POC Glucose 08/02/18 08/02/18 08/01/18 11:41 06:43 21:46 POC Glucose 323 H 176 H 194 H Assessment/Plan This patient was seen in conjunction with CLINICAL AUDIOLOGISTDayami. I have independently interviewed and examined the patient and reviewed pertinent history, examination findings, laboratory and plan of management. I have reviewed the note and agree with the documented findings with the few additional points. In brief, patient is admitted for severe sepsis secondary to right upper lobe community-acquired pneumonia. On IV Rocephin and Zithromax. Pneumonia work-up shows respiratory panel negative. Patient also has acute on chronic hypoxic respiratory failure with baseline supplemental oxygen at bedtime. From right leg shows a staph aureus 2+, gram-positive rods 2+. MSSA. Gram- positive rods. Patient is on antibiotics. Other comorbidities include paroxysmal A. fib on Coumadin, recent pacemaker, and diabetes mellitus type 2 and COPD. I have discussed my assessment with Dayami CARVALHO and orders have been reviewed. Code Visit Inpatient E&M: 92248 Subs Hosp L2
[2018-08-02] MEDS: Warfarin 1 MG, Warfarin 0.5 MG 1.5 MG PO (16:59)
[2018-08-02 17:06] LABS: Bedside Glucose 252 mg/dL (70-110)
[2018-08-02] MEDS: Atorvastatin Calcium 40 MG Tablet PO (21:03)
[2018-08-02 22:46] LABS: Bedside Glucose 279 mg/dL (70-110)
[2018-08-03] VITALS (12 sets, daily range): BP systolic 131–151; BP diastolic 54–79; PULSE 60–75; RESP 16–28; TEMP 36.4–36.8; O2SAT 86–95
[2018-08-03] MEDS: Acetaminophen 325 MG Tablet 650 MG PO ×2 (01:51→09:41)
[2018-08-03 06:20] LABS: Hematocrit 34.3 % (37-47); Hemoglobin 10.6 g/dl (12.0-15.0); Mean Corp Hgb Conc 30.9 g/gl (32-36); Mean Corpuscular Hgb 29.2 pg (27.0-32.0); Mean Corpuscular Volume 94.5 fL (81-99); Mean Platelet Vol. 9.5 fl (6.2-12.0); Platelet Count 142 K/mm3 (150-450); RBC Distribution Width CV 15.5 % (11.6-14.6); RBC Distribution Width SD 53.4 fl (35.1-43.9); Red Blood Count 3.63 M/mm3 (4.2-5.4); White Blood Count 8.1 K/mm3 (4.4-11.0)
[2018-08-03 06:25] LABS: International Normalized Ratio 2.1; Prothrombin Time (Protime)PT. 23.7 SECONDS (11.7-14.9)
[2018-08-03 06:26] LABS: Scan Indicated on CBC? Y/N NO
[2018-08-03 06:33] LABS: Anion Gap 6 (5-15); BUN 32 mg/dL (7-18); BUN/Creat Ratio 31.4 RATIO (10-20); Calcium,Total 8.3 mg/dL (8.5-10.1); Chloride 104 mmol/L (98-107); Creatinine, Serum 1.02 mg/dL (0.55-1.02); EST Glomerular Filtration Rate 57 mL/min (>60); Est Glom Filt Rate - Afr Amer 69 mL/min (>60); Estimated Creatinine Clearance 45.52 ml/min; Glucose 165 mg/dL (74-106); Potassium 3.9 mmol/L (3.5-5.1); Sodium Level 140 mmol/L (136-145)
[2018-08-03 07:01] LABS: Bedside Glucose 137 mg/dL (70-110)
[2018-08-03] MEDS: Ipratropium/Albuterol Sulfate 3 ML AMPUL.NEB INHALATION ×2 (07:18→13:41)
--- NOTE | 2018-08-03 07:58 | RAD_ITS ---
STUDY: X-RAY CHEST REASON FOR EXAM: Female, 72 years old. Shortness of breath TECHNIQUE: AP and lateral views of the chest. COMPARISON: Chest x-ray 07/31/2018 FINDINGS: There is a left-sided single-lead percutaneous pacemaker. Status post median sternotomy/CABG. Right upper lobe airspace consolidation, slightly less prominent when compared to prior exam. There is no demonstrated pleural abnormality. There is mild cardiac enlargement. Normal mediastinum and sachin. There is prominence of the pulmonary hilar arteries without peripheral pulmonary vascular congestion, suggesting pulmonary hypertension. Normal visualized aortic arch and descending thoracic aorta. Normal visualized thoracic spine. Normal visualized ribs, clavicles, and shoulders. There is no demonstrated abnormality of the visualized soft tissue structures of the upper abdomen. RAD/Chest PA and Lateral IMPRESSION: Right upper lobe pneumonia is slightly less prominent when compared to prior exam. Electronically Signed: Abner Quintanilla, at 9:24 EDT Tel , Service support ,
[2018-08-03] MEDS: Gabapentin 300 MG Capsule PO ×3 (08:12→17:08)
[2018-08-03] MEDS: Insulin Lispro 100 UNIT/ML INSULN.PEN 10 UNIT SC ×3 (08:12→17:07)
[2018-08-03] MEDS: Ascorbic Acid 500 MG Tablet PO (08:12)
[2018-08-03] MEDS: Aspirin E.C. 81 MG Tablet PO (08:12)
[2018-08-03] MEDS: Clopidogrel Bisulfate 75 MG Tablet PO (09:40)
[2018-08-03] MEDS: Furosemide 20 MG Tablet 60 MG PO ×2 (09:40→17:08)
[2018-08-03] MEDS: Ceftriaxone 1 GM/50 ML BAG IV (09:40)
[2018-08-03] MEDS: Famotidine 20 MG Tablet PO (09:40)
--- NOTE | 2018-08-03 10:37 | DCINST_ITS ---
You will use the following diet at home:: Calorie/Carbohydrate Controlled (specify 1200, 1400, etc) Discharge Activity: Return to Normal Activity Call your doctor if you observe: Fever of 101 or Higher, Shortness of breath, Dizziness, Fainting spells, Chest pain Allergies/Adverse Reactions: Allergies levofloxacin [From Levaquin] Allergy (Verified 07/31/18 11:30) Other vancomycin Allergy (Verified 07/31/18 11:30) Shortness of breath simvastatin [From Zocor] Adverse Reaction (Verified 07/31/18 11:30) Other Ecfiiwr-Rmy-Fnk Reductase Inhibitor Adverse Reaction (Verified 07/31/18 11:30) Other MUSCLE ACHES Medications to take at Discharge Aspirin [Adult Low Dose Aspirin EC] 81 mg PO DAILY 06/16/17 Cholecalciferol (Vitamin D3) [Optimal D3] 50,000 unit PO BUCK 06/16/17 Nitroglycerin [Nitrostat] 0.4 mg SUBLINGUAL Q5M PRN 06/16/17 Potassium Chloride [K-Dur] 20 meq PO BID 06/16/17 Rosuvastatin Calcium [Crestor] 20 mg PO QHS 06/16/17 Ipratropium/Albuterol Sulfate [Duoneb] 3 ml INHALATION Q6HWA.RT ampul.neb 06/24/17 clopidogrel 75 mg tablet 75 mg PO DAILY #90 tab 07/12/17 furosemide 20 mg tablet 60 mg PO BID tab 07/12/17 gabapentin 300 mg capsule 300 mg PO TID cap 07/12/17 Ascorbic Acid [Vitamin C] 500 mg PO DAILY 07/31/18 Famotidine [Pepcid] 20 mg PO BID 07/31/18 Insulin Aspart [Novolog Flexpen] 10 units SC TIDAC 07/31/18 Insulin Aspart [Novolog Flexpen] See Protocol SC TIDCM 07/31/18 Insulin Glargine,Hum.rec.anlog [Basaglar Kwikpen U-100] 48 unit SQ QHS 07/31/18 Warfarin [Coumadin] 1.5 mg PO DAILY 07/31/18 Amox/Clavulanate Tablet [Augmentin Tablet] 875 mg PO Q12H #14 tablet 08/03/18 The following prescriptions were given: Amox/Clavulanate Tablet [Augmentin Tablet] 875 mg PO Q12H #14 tablet Primary Care Physician: Carli Carballo MD [Primary Care Provider] - Please follow up with your Primary Care Physician in: 1 Week Test Results: Test results from this visit will be discussed in further detail at your follow- up appointment, if applicable. Proposed Discharge Date: 08/03/18
--- NOTE | 2018-08-03 10:38 | PCM.DC.SUM ---
Discharge Date and Diagnosis Date of Admission: 07/31/18 Date of Discharge: 08/03/18 - Primary Discharge Diagnosis 1. Severe sepsis secondary to right upper lobe community-acquired pneumonia 2. Acute on chronic hypoxic respiratory failure secondary to #1 3. Acute metabolic encephalopathy, secondary to #1/#2 4. Paroxysmal atrial fibrillation on anticoagulation with Coumadin 5. Recent pacemaker placement 6. CAD 7. Chronic diastolic CHF 8. Chronic COPD 9. Type 2 diabetes mellitus 10. Chronic kidney disease stage III 11. Right lower extremity venous stasis ulceration, present on admission 12. Obesity - Secondary Discharge Diagnosis Chronic Problems (Last Reviewed 04/12/18 @ 18:45 by Radha Lind) Mitral valve disease (Chronic) Diastolic congestive heart failure (Chronic) Paroxysmal atrial fibrillation (Chronic) H/O coronary artery bypass surgery (Chronic ~2012) CABG 2012 with SUERO to LAD and SVG to OM 1; Atherosclerosis of coronary artery bypass graft without angina pectoris (Chronic) PCI-SANDOR-Mid RCA 3.0 x 28mm Promus Synergy and SANDOR-Prox RCA 3.5 x 32 mm Promus Synergy 06/18/17; CABG 2012 COPD (chronic obstructive pulmonary disease) (Chronic) Nocturnal hypoxemia (Chronic) Presence of IVC filter (Chronic) Status post PIOTR-BSO (Chronic) she thinks she may have had uterine CA Morbid obesity (Chronic) BMI 49 Lung nodules (Chronic) History of DVT (deep vein thrombosis) (Chronic) on coumadin lifelong Diabetes mellitus (Chronic) diabetic foot ulcerations Anticoagulation goal of INR 2 to 3 (Chronic) Physical debility (Chronic) Constipation due to pain medication (Chronic) Hospital Course and Treatment Imaging Results: Diagnostic Data Chest X-Ray 08/03/18 07:58 IMPRESSION: Right upper lobe pneumonia is slightly less prominent when compared to prior exam. Electronically Signed: Abner Quintanilla, at 9:24 EDT Tel , Service support , Consultations 08/01/18 13:44 Consult: Onc/Wound/registered safety engineer Routine Comment: Reason for Consult:: RLE wound, right medial lower leg Operations: None Procedures: None Summary of Care Provided: The patient is a 72 year old F admitted 07/31/2018 due to general malaise, cough and shortness of breath. 1. Severe sepsis secondary to right upper lobe community-acquired pneumonia-chest x-ray admission with right upper lobe consolidation. Patient received IV Rocephin and IV azithromycin during admission. Repeat chest x-ray shows improvement in right upper lobe infiltrate. Respiratory panel negative. Blood culture shows no growth. Augmentin at discharge 875 mg twice daily for 7 days. Follow-up with primary care provider in 1 week. 2. Acute on chronic hypoxic respiratory failure secondary to #1-chronically wears supplemental oxygen at bedtime. Continue supple oxygen to maintain O2 sat above 90%. 3. Acute metabolic encephalopathy, secondary to #1/#2-Resolved. 4. Paroxysmal atrial fibrillation on anticoagulation with Coumadin. 5. Recent pacemaker rhlczrsid-[id number] with Dr. Wang as scheduled. 6. CAD-continue aspirin, statin, Plavix. 7. Chronic diastolic CHF-hold Lasix regimen. Echocardiogram June 2017 with EF 55%. 8. Chronic COPD-no acute exacerbation. Albuterol aerosol as needed. 9. Type 2 diabetes mellitus- Continue home Lantus and scheduled Humalog regimen. 10. Chronic kidney disease stage III-stable. 11. Right lower extremity venous stasis ulceration, present on admission-Wound culture with staph and gram-positive mario. Recommend follow-up with wound center at discharge. Cleanse wound with normal saline, place Aquacel Ag and cover with dry dressing daily. Home health at discharge. 12. Obesity- encouraged diet and lifestyle modifications. General: Alert, Oriented x3, Cooperative HEENT: Atraumatic, PERRLA, EOMI, Normocephalic Neck: Supple, No JVD, Negative Carotid Bruits Lungs: Diminished, - - Mild crackles bilateral bases Cardiovascular: Regular rate, Regular Rhythm, Normal S1, Normal S2, No murmurs Abdomen: Bowel Sounds Present, Soft, Non Tender, Non-Distended, Obese Extremities: No clubbing, No cyanosis, No edema, Capillary Refill Less than 3 Seconds Skin: No rashes, No breakdown, - - Right medial lower leg wound, dressing intact. Musculoskeletal: No Tenderness to Palpation of Joints or Extremities Neurological: Cranial nerves II-XII grossly intact, Neuro grossly intact Psych/Mental Status: Normal Affect, Appropriate Patient seen and examined prior to discharge. Physical assessment as noted above. Patient is stable for discharge with follow up recommendations as noted above. This patient was seen by PAT Cole under the supervision of Dr. Evans. - Physical Exam Vital Signs Temp Pulse Resp BP Pulse Ox 97.5 F L 66 18 131/56 H 93 08/03/18 09:40 08/03/18 09:40 08/03/18 09:40 08/03/18 09:40 08/03/18 09:40 Oxygen Flow Rate (L/min) 2 Oxygen Delivery Method Nasal Cannula Weight: 242 lb 8.136 oz Body Mass Index (BMI) 40.3 Finger Stick Blood Glucose 85 Intake and Output for Last 24 Hours 08/01/18 08/02/18 08/03/18 23:59 23:59 23:59 Intake Total 3338 / 3338 2372 / 2372 120 / 120 Output Total 150 / 150 350 / 350 400 / 400 Balance 3188 / 3188 2021 -280 / -280 Microbiology Past 72 Hours 07/31/18 11:45 Blood Culture - Preliminary Blood Culture (Wb) - Right Hand No growth in 48 hours. 07/31/18 11:15 Blood Culture - Preliminary Blood Culture (Wb) - Left Hand No growth in 48 hours. 07/31/18 11:15 Gram Stain - Final Wound - Leg, Right Wound Culture - Final Staphylococcus aureus Gram positive mario 07/31/18 15:44 Respiratory Panel (PCR) - Final Mucosa - Nasopharyngeal Laboratory Tests Past 24 Hrs 08/03/18 08/03/18 08/03/18 05:15 05:15 05:15 WBC 8.1 RBC 3.63 L Hgb 10.6 L Hct 34.3 L MCV 94.5 MCH 29.2 MCHC 30.9 L RDW 15.5 H RDW Differential 53.4 H Plt Count 142 L MPV 9.5 PT 23.7 H INR 2.1 Sodium 140 Potassium 3.9 Chloride 104 Carbon Dioxide 30.0 Anion Gap 6 BUN 32 H Creatinine 1.02 Estim Creat Clear Calc 45.52 Est GFR (MDRD) Af Amer 69 Est GFR (MDRD) Non-Af 57 L BUN/Creatinine Ratio 31.4 H Glucose 165 H Calcium 8.3 L POC Glucose 08/03/18 08/02/18 08/02/18 06:55 20:59 16:52 POC Glucose 137 H 279 H 252 H 08/02/18 11:41 POC Glucose 323 H Discharge Diet: Carb Control Diet Discharge Activity: Return to Normal Activity Call your doctor if you observe: Fever of 101 or Higher, Shortness of breath, Dizziness, Fainting spells, Chest pain Home Medications: Medications to take at Discharge Aspirin [Adult Low Dose Aspirin EC] 81 mg PO DAILY 06/16/17 Cholecalciferol (Vitamin D3) [Optimal D3] 50,000 unit PO BUCK 06/16/17 Nitroglycerin [Nitrostat] 0.4 mg SUBLINGUAL Q5M PRN 06/16/17 Potassium Chloride [K-Dur] 20 meq PO BID 06/16/17 Rosuvastatin Calcium [Crestor] 20 mg PO QHS 06/16/17 Ipratropium/Albuterol Sulfate [Duoneb] 3 ml INHALATION Q6HWA.RT ampul.neb 06/24/17 clopidogrel 75 mg tablet 75 mg PO DAILY #90 tab 07/12/17 furosemide 20 mg tablet 60 mg PO BID tab 07/12/17 gabapentin 300 mg capsule 300 mg PO TID cap 07/12/17 Ascorbic Acid [Vitamin C] 500 mg PO DAILY 07/31/18 Famotidine [Pepcid] 20 mg PO BID 07/31/18 Insulin Aspart [Novolog Flexpen] 10 units SC TIDAC 07/31/18 Insulin Aspart [Novolog Flexpen] See Protocol SC TIDCM 07/31/18 Insulin Glargine,Hum.rec.anlog [Basaglar Kwikpen U-100] 48 unit SQ QHS 07/31/18 Warfarin [Coumadin] 1.5 mg PO DAILY 07/31/18 Amox/Clavulanate Tablet [Augmentin Tablet] 875 mg PO Q12H #14 tablet 08/03/18 Following Prescrptions Were Given to Patient: Amox/Clavulanate Tablet [Augmentin Tablet] 875 mg PO Q12H #14 tablet Primary Care Physician: Carli Carballo MD [Primary Care Provider] - Please follow up with your Primary Care Physician in: 1 Week Please Follow Up With: Boone Wang MD When: As scheduled Disposition: Home with Home Health Minutes spent on discharge:: 35 Patient Condition:: Stable Medical Necessity - Tobacco Use Smoking Status: Never smoker Meaningful Use Info Meaningful Use Diagnoses (Choose all that apply): None applicable
--- NOTE | 2018-08-03 10:46 | CASEMGMT ---
Call to Faith at [facility] and she is aware that pt is being discharged today, voices understanding and voices no further questions/concerns/needs at this time. D/C instructions and JENNI order faxed to [facility] at this time. Clarissa WALLS CM
--- NOTE | 2018-08-03 10:52 | DS.PCM_ITS ---
Addendum entered and electronically signed by PAT Cole 08/03/18 11:39: Code Visit Patient previously wore supplement oxygen at bedtime only. Walking pulse ox completed and patient will require 2 L nasal cannula continuously at rest and with exertion. She is ambulatory in the home. Original Note: Discharge Date and Diagnosis Date of Admission: 07/31/18 Date of Discharge: 08/03/18 - Primary Discharge Diagnosis 1. Severe sepsis secondary to right upper lobe community-acquired pneumonia 2. Acute on chronic hypoxic respiratory failure secondary to #1 3. Acute metabolic encephalopathy, secondary to #1/#2 4. Paroxysmal atrial fibrillation on anticoagulation with Coumadin 5. Recent pacemaker placement 6. CAD 7. Chronic diastolic CHF 8. Chronic COPD 9. Type 2 diabetes mellitus 10. Chronic kidney disease stage III 11. Right lower extremity venous stasis ulceration, present on admission 12. Obesity - Secondary Discharge Diagnosis Chronic Problems (Last Reviewed 04/12/18 @ 18:45 by Radha Lind) Mitral valve disease (Chronic) Diastolic congestive heart failure (Chronic) Paroxysmal atrial fibrillation (Chronic) H/O coronary artery bypass surgery (Chronic ~2012) CABG 2012 with SUERO to LAD and SVG to OM 1; Atherosclerosis of coronary artery bypass graft without angina pectoris (Chronic) PCI-SANDOR-Mid RCA 3.0 x 28mm Promus Synergy and SANDOR-Prox RCA 3.5 x 32 mm Promus Synergy 06/18/17; CABG 2012 COPD (chronic obstructive pulmonary disease) (Chronic) Nocturnal hypoxemia (Chronic) Presence of IVC filter (Chronic) Status post PIOTR-BSO (Chronic) she thinks she may have had uterine CA Morbid obesity (Chronic) BMI 49 Lung nodules (Chronic) History of DVT (deep vein thrombosis) (Chronic) on coumadin lifelong Diabetes mellitus (Chronic) diabetic foot ulcerations Anticoagulation goal of INR 2 to 3 (Chronic) Physical debility (Chronic) Constipation due to pain medication (Chronic) Hospital Course and Treatment Imaging Results: Diagnostic Data Chest X-Ray 08/03/18 07:58 IMPRESSION: Right upper lobe pneumonia is slightly less prominent when compared to prior exam. Electronically Signed: Abner Quintanilla, at 9:24 EDT Tel , Service support , Consultations 08/01/18 13:44 Consult: Onc/Wound/grades 7 and 8 visiting teacher Routine Comment: Reason for Consult:: RLE wound, right medial lower leg Operations: None Procedures: None Summary of Care Provided: The patient is a 72 year old F admitted 07/31/2018 due to general malaise, cough and shortness of breath. 1. Severe sepsis secondary to right upper lobe community-acquired pneumonia- chest x-ray admission with right upper lobe consolidation. Patient received IV Rocephin and IV azithromycin during admission. Repeat chest x-ray shows improvement in right upper lobe infiltrate. Respiratory panel negative. Blood culture shows no growth. Augmentin at discharge 875 mg twice daily for 7 days. Follow-up with primary care provider in 1 week. 2. Acute on chronic hypoxic respiratory failure secondary to #1-chronically wears supplemental oxygen at bedtime. Continue supple oxygen to maintain O2 sat above 90%. 3. Acute metabolic encephalopathy, secondary to #1/#2-Resolved. 4. Paroxysmal atrial fibrillation on anticoagulation with Coumadin. 5. Recent pacemaker [id number]-[id number] with Dr. Wang as scheduled. 6. CAD-continue aspirin, statin, Plavix. 7. Chronic diastolic CHF-hold Lasix regimen. Echocardiogram June 2017 with EF 55%. 8. Chronic COPD-no acute exacerbation. Albuterol aerosol as needed. 9. Type 2 diabetes mellitus- Continue home Lantus and scheduled Humalog regimen. 10. Chronic kidney disease stage III-stable. 11. Right lower extremity venous stasis ulceration, present on admission-Wound culture with staph and gram-positive mario. Recommend follow-up with wound center at discharge. Cleanse wound with normal saline, place Aquacel Ag and cover with dry dressing daily. Home health at discharge. 12. Obesity- encouraged diet and lifestyle modifications. General: Alert, Oriented x3, Cooperative HEENT: Atraumatic, PERRLA, EOMI, Normocephalic Neck: Supple, No JVD, Negative Carotid Bruits Lungs: Diminished, - - Mild crackles bilateral bases Cardiovascular: Regular rate, Regular Rhythm, Normal S1, Normal S2, No murmurs Abdomen: Bowel Sounds Present, Soft, Non Tender, Non-Distended, Obese Extremities: No clubbing, No cyanosis, No edema, Capillary Refill Less than 3 Seconds Skin: No rashes, No breakdown, - - Right medial lower leg wound, dressing intact. Musculoskeletal: No Tenderness to Palpation of Joints or Extremities Neurological: Cranial nerves II-XII grossly intact, Neuro grossly intact Psych/Mental Status: Normal Affect, Appropriate Patient seen and examined prior to discharge. Physical assessment as noted above. Patient is stable for discharge with follow up recommendations as noted above. This patient was seen by PAT Cole under the supervision of Dr. Evans. - Physical Exam Vital Signs Temp Pulse Resp BP Pulse Ox 97.5 F L 66 18 131/56 H 93 08/03/18 09:40 08/03/18 09:40 08/03/18 09:40 08/03/18 09:40 08/03/18 09:40 Oxygen Flow Rate (L/min) 2 Oxygen Delivery Method Nasal Cannula Weight: 242 lb 8.136 oz Body Mass Index (BMI) 40.3 Finger Stick Blood Glucose 85 Intake and Output for Last 24 Hours 08/01/18 08/02/18 08/03/18 23:59 23:59 23:59 Intake Total 3338 / 3338 2372 / 2372 120 / 120 Output Total 150 / 150 350 / 350 400 / 400 Balance 3188 / 3188 2021 -280 / -280 Microbiology Past 72 Hours 07/31/18 11:45 Blood Culture - Preliminary Blood Culture (Wb) - Right Hand No growth in 48 hours. 07/31/18 11:15 Blood Culture - Preliminary Blood Culture (Wb) - Left Hand No growth in 48 hours. 07/31/18 11:15 Gram Stain - Final Wound - Leg, Right Wound Culture - Final Staphylococcus aureus Gram positive mario 07/31/18 15:44 Respiratory Panel (PCR) - Final Mucosa - Nasopharyngeal Laboratory Tests Past 24 Hrs 08/03/18 08/03/18 08/03/18 05:15 05:15 05:15 WBC 8.1 RBC 3.63 L Hgb 10.6 L Hct 34.3 L MCV 94.5 MCH 29.2 MCHC 30.9 L RDW 15.5 H RDW Differential 53.4 H Plt Count 142 L MPV 9.5 PT 23.7 H INR 2.1 Sodium 140 Potassium 3.9 Chloride 104 Carbon Dioxide 30.0 Anion Gap 6 BUN 32 H Creatinine 1.02 Estim Creat Clear Calc 45.52 Est GFR (MDRD) Af Amer 69 Est GFR (MDRD) Non-Af 57 L BUN/Creatinine Ratio 31.4 H Glucose 165 H Calcium 8.3 L POC Glucose 08/03/18 08/02/18 08/02/18 06:55 20:59 16:52 POC Glucose 137 H 279 H 252 H 08/02/18 11:41 POC Glucose 323 H Discharge Diet: Carb Control Diet Discharge Activity: Return to Normal Activity Call your doctor if you observe: Fever of 101 or Higher, Shortness of breath, Dizziness, Fainting spells, Chest pain Home Medications: Medications to take at Discharge Aspirin [Adult Low Dose Aspirin EC] 81 mg PO DAILY 06/16/17 Cholecalciferol (Vitamin D3) [Optimal D3] 50,000 unit PO BUCK 06/16/17 Nitroglycerin [Nitrostat] 0.4 mg SUBLINGUAL Q5M PRN 06/16/17 Potassium Chloride [K-Dur] 20 meq PO BID 06/16/17 Rosuvastatin Calcium [Crestor] 20 mg PO QHS 06/16/17 Ipratropium/Albuterol Sulfate [Duoneb] 3 ml INHALATION Q6HWA.RT ampul.neb 06/24/17 clopidogrel 75 mg tablet 75 mg PO DAILY #90 tab 07/12/17 furosemide 20 mg tablet 60 mg PO BID tab 07/12/17 gabapentin 300 mg capsule 300 mg PO TID cap 07/12/17 Ascorbic Acid [Vitamin C] 500 mg PO DAILY 07/31/18 Famotidine [Pepcid] 20 mg PO BID 07/31/18 Insulin Aspart [Novolog Flexpen] 10 units SC TIDAC 07/31/18 Insulin Aspart [Novolog Flexpen] See Protocol SC TIDCM 07/31/18 Insulin Glargine,Hum.rec.anlog [Basaglar Kwikpen U-100] 48 unit SQ QHS 07/31/18 Warfarin [Coumadin] 1.5 mg PO DAILY 07/31/18 Amox/Clavulanate Tablet [Augmentin Tablet] 875 mg PO Q12H #14 tablet 08/03/18 Following Prescrptions Were Given to Patient: Amox/Clavulanate Tablet [Augmentin Tablet] 875 mg PO Q12H #14 tablet Primary Care Physician: Carli Carballo MD [Primary Care Provider] - Please follow up with your Primary Care Physician in: 1 Week Please Follow Up With: Boone Wang MD When: As scheduled Disposition: Home with Home Health Minutes spent on discharge:: 35 Patient Condition:: Stable Medical Necessity - Tobacco Use Smoking Status: Never smoker Meaningful Use Info Meaningful Use Diagnoses (Choose all that apply): None applicable
[2018-08-03 11:06] LABS: Bedside Glucose 311 mg/dL (70-110)
[2018-08-03] MEDS: Insulin Lispro 100 UNIT/ML INSULN.PEN SQ ×2 (11:17→17:07)
--- NOTE | 2018-08-03 12:44 | CASEMGMT ---
Pt does qualify for continous home oxygen at this time and per CM assessment, pt only has oxygen for bedtime. Call to [facility] and per Gilma, pt's order from [facility] is for 2 liters with exertion and at bedtime. New order for 2liters continuous faxed with qualifying documentation and F2F documentation at this time. Per Faith WALLS, pt does have portable tanks at home and son will pick one up to come get her. Clarissa WALLS CM
[2018-08-03 16:30] LABS: Bedside Glucose 199 mg/dL (70-110)
[2018-08-03] MEDS: Warfarin 1 MG, Warfarin 0.5 MG 1.5 MG PO (17:08)
--- NOTE | 2018-08-04 15:06 | CASEMGMT ---
KAVITA ELENA Discharge Follow-Up Phone Call. Olivia: Scarlett Strata: 3 Discharge Date: 08/03/18 Adm Dx: Pneumonia Call to pt to inquire about how she has been doing since being discharged from the hospital. Pt states she is doing okay. She states that the nurse from [facility] is with her now. Pt states she was able to get the prescription for the antibiotic, has no questions about the discharge instructions or medications. She states she plans to make the appt with Dr Carballo and has an upcoming appt with her heading saw operator in [place]. Discussed instructions to follow up @ the [facility] within a week. Pt stated, well I'm not going to go to that. That's what the nurse is here for now. Pt made aware of the importance of still following up @ the Wound Center so that she is being seen/monitored by the physician. Pt voiced understanding. KAVITA ELENA thanked pt for choosing [facility]. Donald WU RN, CM
== END 2018-08-03 17:35 | disposition home or self-care (01) | DRG 871 ==
LOC: ED 12:30 → PCU 12:46
PROVIDERS: Internal Medicine; Nurse Practitioner Family; Admitting Provider Student in an Organized Health Care Education/Training Program; Emergency Provider Emergency Medicine; Family Provider Internal Medicine; PCP Internal Medicine; Visit Provider Internal Medicine
DX: A41.9 Sepsis, unspecified organism (principal); J18.1 Lobar pneumonia, unspecified organism; J96.21 Acute and chronic respiratory failure with hypoxia; G93.41 Metabolic encephalopathy; I50.32 Chronic diastolic (congestive) heart failure; L97.818 Non-pressure chronic ulcer of other part of right lower leg with other specified severity; I25.810 Atherosclerosis of coronary artery bypass graft(s) without angina pectoris; R65.20 Severe sepsis without septic shock; I48.0 Paroxysmal atrial fibrillation; Z79.01 Long term (current) use of anticoagulants; J44.9 Chronic obstructive pulmonary disease, unspecified; I87.8 Other specified disorders of veins; N18.3 Chronic kidney disease, stage 3 (moderate); E11.9 Type 2 diabetes mellitus without complications; Z86.718 Personal history of other venous thrombosis and embolism; Z95.1 Presence of aortocoronary bypass graft; E66.01 Morbid (severe) obesity due to excess calories; Z79.82 Long term (current) use of aspirin; Z79.51 Long term (current) use of inhaled steroids; Z79.4 Long term (current) use of insulin; Z79.899 Other long term (current) drug therapy; E11.42 Type 2 diabetes mellitus with diabetic polyneuropathy; Z68.39 Body mass index [BMI] 39.0-39.9, adult; R00.1 Bradycardia, unspecified; B95.61 Methicillin susceptible Staphylococcus aureus infection as the cause of diseases classified elsewhere
CPT/HCPCS: 36415; 71045; 71046; 80048; 81001; 82962; 83605; 84484; 85025; 85027; 85610; 87040; 87070; 87077; 87186; 87205; 87633; 93005; 94640; 97162; 97166; 97530; 97535; 99285; 99406; J7030